=== PATIENT | male | born 1940 | race Caucasian/White ===

== ENCOUNTER → 2016-12-31 | Outpatient (CLI) | payer BC ==
[~2016-12-31] MED LIST: ATEN-173 PO; MULT-506 PO; NAPR1TAB9 PO; TELM80TA4 PO
[2016-12-31 09:38] LABS: BASO % 0.3 %; BASO ABS # 0.02 K/uL (0-0.2); COMPLETE YES; EOS % 1.9 %; IG% 0.5 %; LYMPH % 32.2 %; LYMPH ABS # 1.87 K/uL (1.2-3.4); MEAN CELL VOLUME 94.3 fL (80-100); MEAN CORPUSCULAR HEMOGLOBIN 32.6 pg (25-34); MEAN CORPUSCULAR HGB CONC 34.6 g/dl (32-36); MEAN PLATELET VOLUME 11.1 fL (7.4-10.4); MONO % 9.6 %; NEUT % 55.5 %; PLATELET COUNT 166 K/uL (130-400); RED BLOOD COUNT 4.88 M/uL (4.7-6.1); WHITE BLOOD COUNT 5.81 K/uL (4.8-10.8)
[2016-12-31 10:42] LABS: BLOOD UREA NITROGEN 19 mg/dl (7-18); BUN/CREATININE RATIO 17.4 (10-20); CALCIUM 8.9 mg/dl (8.5-10.1); CARBON DIOXIDE 30 mmol/L (21-32); CHLORIDE 103 mmol/L (98-107); GLUCOSE 104 mg/dl (70-99); POTASSIUM 3.6 mmol/L (3.5-5.1); SODIUM 141 mmol/L (136-145)
[2016-12-31 10:54] LABS: ALB/GLOB RATIO 1.1 (0.9-2); ALKALINE PHOSPHATASE 54 U/L (45-117); ALT/SGPT 42 U/L (12-78); AST/SGOT 31 U/L (15-37)
== END | disposition home or self-care (01) ==
LOC: C.LAB1850 08:02
PROVIDERS: ATTEND Internal Medicine Pulmonary Disease
DX: I10 Essential (primary) hypertension (principal); N40.0 Benign prostatic hyperplasia without lower urinary tract symptoms

== ENCOUNTER 2017-05-19 08:43 | Inpatient (IN) | payer BC, OTHER ==
[~2017-05-19] VITALS: Ht 188 cm; Wt 111.1 kg
[2017-05-19] VITALS (8 sets, daily range): BP systolic 129–197; BP diastolic 74–103; PULSE 63–74; TEMP 36.3–37; O2SAT 95–100; Ht 188 cm; Wt 111.1 kg
[~2017-05-19 08:43] MED LIST changes: -TELM80TA4 PO; +TELM80TA6 PO
--- NOTE | 2017-05-19 09:17 | EMERGENCY ROOM VISIT NOTE ---
History Report prepared by Mike: Digna Kim Under the Supervision of: Dr. Mello Lujan M.D. First contact with patient: 09:01 Chief Complaint: RECTAL BLEEDING Stated Complaint: RECTAL BLEEDING/HEAVY Nursing Triage Summary: Pt states at 0300 had a BM and toilet was full of bright red blood. States takes 2 naproxen daily. Mild rectal pain. Hx of GI bleed 7 yrs ago. Denies weakness, sob, fatigue. History of Present Illness The patient is a 77 year old male who presents to the Emergency Room with complaints of rectal bleeding occurring at 0330 this morning. The patient states that he defecated at this time, and that the toilet bowl was full of bright red blood. The patient reports having a normal appetite and normal urination. He states that he sometimes feels light-headed when getting up, but denies feeling short of breath. The patient states that he has had hemorrhoid problems over the last 15 years. In 2009, he reports doing a cross-country trip and that he later ended up in the hospital.He states that the last time he had a colonoscopy was in 2009. After this episode, he reports having blood in his stool and that he had to be given 3 pints of blood. The patient states that he takes 2 [id number] Naproxen daily, and states that he also takes blood pressure medication. The patient denies a history of a cholecystectomy. Source of History: patient Onset: 0330 this morning Position: other (rectum ) Quality: other (bleeding ) Associated Symptoms: + weakness (light-headedness ), No SOB, No urinary symptoms Review of Systems All systems have been listed, reviewed, and are negative other than those previously mentioned. Please see Additional Medical History Sheet. Past Medical & Surgical Medical Problems: (1) Gallbladder disease (2) Hypertension (3) Kidney stones (4) Pneumonia Surgical Problems: (1) Hx of cholecystectomy Family History Cancer Diabetes mellitus Gallbladder disease Hypertension Kidney disease Kidney stones Social History Smoking Status: Former Smoker Alcohol Use: none Drug Use: none Marital Status: Housing Status: lives with family Occupation Status: employed Current/Historical Medications Scheduled Atenolol (Tenormin), 25 MG PO DAILY Multivitamin (Multivitamin), 1 TAB PO DAILY Naproxen (Aleve), 220 MG PO DAILY Telmisartan/Hctz (Micardis Hct 80MG/12.5MG), 1 TAB PO DAILY Allergies Coded Allergies: No Known Allergies (Unverified , 05/19/17) Physical Exam Vital Signs Date Time Temp Pulse Resp B/P (MAP) Pulse Ox O2 Delivery O2 Flow Rate FiO2 05/19/17 11:53 67 18 188/100 98 Room Air 05/19/17 10:06 66 14 96 Room Air 05/19/17 10:01 170/94 05/19/17 09:43 180/94 05/19/17 09:43 66 18 180/94 97 Room Air 05/19/17 09:42 202/95 05/19/17 09:40 185/96 05/19/17 09:39 66 18 175/92 97 Room Air 69 185/96 73 202/95 05/19/17 09:36 66 9 95 05/19/17 09:31 66 18 175/92 97 Room Air 05/19/17 09:22 66 05/19/17 08:50 36.6 79 18 201/95 99 Room Air Physical Exam GENERAL: Patient awake, alert, oriented x 3. Patient follows commands. Patient does not appear toxic. Patient is adequately hydrated and well- nourished. SKIN: No erythema, pallor, cyanosis or rash HEENT: Normal head, pupils equal, reactive to light and accommodation. Ears normal. Oral cavity and posterior pharynx appear normal. Neck: Without adenopathy, no neck vein distention. LUNGS: Clear to auscultation. No wheezes, no rales, no rhonchi. HEART: No murmurs. No gallops. No rubs ABDOMEN: No masses, no rebound, no hepatomegaly or splenomegaly. Large oblique scar in the right upper quadrant. Bowel sounds are active. Vague abdominal tenderness (the patient says is chronic). EXTREMITIES: No signs of trauma. No pedal or pretibial edema. No calf or thigh tenderness. RECTAL: External hemorrhoids with obvious blood on them and on his anus but the source of the bleeding could not be defined. No masses palpated. Prostate not enlarged. NEUROLOGIC: Cranial nerves II-XII within normal limits. No gross motor sensory function deficits. Medical Decision & Procedures Laboratory Results 05/19/17 09:26 Red Blood Count 4.60, Mean Corpuscular Volume 93.3, Mean Corpuscular Hemoglobin 32.0, Mean Corpuscular Hemoglobin Concent 34.3, Mean Platelet Volume 10.7, Neutrophils (%) (Auto) 63.7, Lymphocytes (%) (Auto) 20.0, Monocytes (%) (Auto) 12.6, Eosinophils (%) (Auto) 2.7, Basophils (%) (Auto) 0.5, Neutrophils # (Auto ) 3.79, Lymphocytes # (Auto) 1.19, Monocytes # (Auto) 0.75, Eosinophils # (Auto ) 0.16, Basophils # (Auto) 0.03 05/19/17 09:26 Test 05/19/17 09:26 05/19/17 10:55 White Blood Count 5.95 K/uL (4.8-10.8) Red Blood Count 4.60 M/uL (4.7-6.1) Hemoglobin 14.7 g/dL (14.0-18.0) Hematocrit 42.9 % (42-52) Mean Corpuscular Volume 93.3 fL (80-100) Mean Corpuscular Hemoglobin 32.0 pg (25-34) Mean Corpuscular Hemoglobin Concent 34.3 g/dl (32-36) Platelet Count 173 K/uL (130-400) Mean Platelet Volume 10.7 fL (7.4-10.4) Neutrophils (%) (Auto) 63.7 % Lymphocytes (%) (Auto) 20.0 % Monocytes (%) (Auto) 12.6 % Eosinophils (%) (Auto) 2.7 % Basophils (%) (Auto) 0.5 % Neutrophils # (Auto) 3.79 K/uL (1.4-6.5) Lymphocytes # (Auto) 1.19 K/uL (1.2-3.4) Monocytes # (Auto) 0.75 K/uL (0.11-0.59) Eosinophils # (Auto) 0.16 K/uL (0-0.5) Basophils # (Auto) 0.03 K/uL (0-0.2) RDW Standard Deviation 45.4 fL (36.4-46.3) RDW Coefficient of Variation 13.3 % (11.5-14.5) Immature Granulocyte % (Auto) 0.5 % Immature Granulocyte # (Auto) 0.03 K/uL (0.00-0.02) Prothrombin Time 11.8 SECONDS (9.0-12.0) Prothromb Time International Ratio 1.1 (0.9-1.1) Activated Partial Thromboplast Time 28.5 SECONDS (21.0-31.0) Partial Thromboplastin Ratio 1.1 Anion Gap 2.0 mmol/L (3-11) Est Creatinine Clear Calc Drug Dose 73.6 ml/min Estimated GFR () 75.3 Estimated GFR (Non- 64.9 BUN/Creatinine Ratio 20.0 (10-20) Calcium Level 8.5 mg/dl (8.5-10.1) Total Bilirubin 1.0 mg/dl (0.2-1) Aspartate Amino Transf (AST/SGOT) 31 U/L (15-37) Alanine Aminotransferase (ALT/SGPT) 38 U/L (12-78) Alkaline Phosphatase 54 U/L (45-117) Total Protein 7.1 gm/dl (6.4-8.2) Albumin 3.6 gm/dl (3.4-5.0) Globulin 3.5 gm/dl (2.5-4.0) Albumin/Globulin Ratio 1.0 (0.9-2) Urine Color YELLOW Urine Appearance CLEAR (CLEAR) Urine pH 7.0 (4.5-7.5) Urine Specific [place] 1.013 (1.000-1.030) Urine Protein NEG (NEG) Urine Glucose (UA) NEG (NEG) Urine Ketones NEG (NEG) Urine Occult Blood NEG (NEG) Urine Nitrite NEG (NEG) Urine Bilirubin NEG (NEG) Urine Urobilinogen NEG (NEG) Urine Leukocyte Esterase NEG (NEG) Laboratory results as stated above per my review. Medications Administered Medications (Trade) Dose Ordered Sig/Shawn Route Start Time Stop Time Status Last Admin Dose Admin Potassium Chloride (Klor-Con M10) 40 meq NOW STAT PO 05/19/17 12:36 05/19/17 12:56 DC 05/19/17 13:18 40 MEQ ECG Indication: other (rectal bleeding ) Rate (beats per minute): 66 Rhythm: normal sinus Findings: nonspecific-ST abn, T-wave inversion (in V6, which are new compared to 2009), other (borderline left ventricular hypertrophy) ED Course 0902: Past medical records reviewed. The patient was evaluated in room A10. A complete history and physical examination was performed. 1042: I checked on the patient and he has no bleeding at the present time. We will see what happens after he moves his bowels. 1141: The patient states that he had bright red blood in the toilet when moving his bowels. 1143: Discussed the patient's case with Dr. Dixon. Dr. Dixon believes that the patient should be admitted. The patient will be evaluated for further management. 1148: Upon reevaluation, the patient is resting.I discussed today's findings with him. He verbalized agreement of the treatment plan. I spoke with Dr. Nelson of the [facility] Hospitalist Service to evaluate the patient for further management. Medical Decision Nurses notes reviewed. Medical history sheet reviewed. Differential diagnosis includes but is not limited to: rectal bleed, hemorrhoids, anal fissure, polyp, anemia, and orthostasis. 77-year-old male with rectal bleeding. The patient has obvious external hemorrhoids but cannot identify the source of the bleed. Bleeding had stopped but the patient had another bowel movement while here and he had significantly more blood. Multiple labs were obtained. Please see above. The patient is not anemic at this time. I discussed care briefly over the phone with Dr. Dixon. I also discussed care with the patient, his and the hospitalist. Medication Reconcilliation Current Medication List: was personally reviewed by me Blood Pressure Screening Patient's blood pressure: Elevated blood pressure will be monitored by hospitalist Consults Time Called: 1140 Consulting Physician: Dr. Land [employer] Returned Call: [phone] Discussed the patient's case with Dr. Dixon. Dr. Dixon believes that the patient should be admitted. The patient will be evaluated for further management. Additional Consults: Time Called: 1142 Consulted Physician: Dr. Nelson - [facility] Returned Call: [phone] Additional Comments: Discussed the patient's case with Dr. Nelson. The patient will be evaluated for further management. Impression Primary Impression: GI bleed Scribe Attestation The scribe's documentation has been prepared under my direction and personally reviewed by me in its entirety. I confirm that the note above accurately reflects all work, treatment, procedures, and medical decision making performed by me. Departure Information Dispostion Being Evaluated By Hospitalist Referrals Orlando Altman M.D. (PCP) Patient Instructions My [facility]
[2017-05-19 09:46] LABS: BASO % 0.5 %; BASO ABS # 0.03 K/uL (0-0.2); COMPLETE YES; EOS % 2.7 %; HEMATOCRIT 42.9 % (42-52); IG% 0.5 %; LYMPH ABS # 1.19 K/uL (1.2-3.4); MEAN CELL VOLUME 93.3 fL (80-100); MEAN CORPUSCULAR HGB CONC 34.3 g/dl (32-36); MEAN PLATELET VOLUME 10.7 fL (7.4-10.4); MONO % 12.6 %; NEUT % 63.7 %; PLATELET COUNT 173 K/uL (130-400); WHITE BLOOD COUNT 5.95 K/uL (4.8-10.8)
[2017-05-19 09:57] LABS: INR 1.1 (0.9-1.1); PARTIAL THROMBOPLASTIN RATIO 1.1; PROTHROMBIN TIME (PATIENT) 11.8 SECONDS (9.0-12.0)
[2017-05-19 10:02] LABS: CALCIUM 8.5 mg/dl (8.5-10.1); CREATININE 1.08 mg/dl (0.60-1.40); POTASSIUM 3.4 mmol/L (3.5-5.1)
[2017-05-19 11:05] LABS: URINE APPEARANCE CLEAR (CLEAR); URINE BILIRUBIN NEG (NEG); URINE COLOR YELLOW; URINE NITRITE NEG (NEG); URINE SPECIFIC GRAVITY 1.013 (1.000-1.030); UROBILINOGEN NEG (NEG); ZZUR CULT IF INDIC CLEAN CATCH NO
[2017-05-19 11:06] LABS: MANUAL MICROSCOPIC REQUIRED? NO; REVIEW REQ? NO
[2017-05-19] MEDS ORDERED: POTASSIUM CHLORIDE 10 MEQ TABCR PO STA (12:36)
[2017-05-19] MEDS ORDERED: ACETAMINOPHEN 325 MG TAB PO PRN (12:45)
[2017-05-19] MEDS ORDERED: MAGNESIUM HYDROXIDE SUSP 30 ML UDC PO PRN (12:45)
[2017-05-19] MEDS ORDERED: ONDANSETRON INJ 2 MG/ML 2 ML VIAL IV PRN (12:45)
--- NOTE | 2017-05-19 13:02 | History and Physical ---
History & Physical Date & Time of Service: May 19, 2017 at 12:43 Chief Complaint: Rectal Bleeding/Heavy Primary Care Physician: Orlando Altman M.D. History of Present Illness Source: patient, family 77 y/o M c/o BRBPR. Pt's states that they were woken up around 330am when their phone rang with a wrong number. Pt got up at that time to use the bathroom after noting rectal pressure. He passed a small amount of stool, but mostly bright red blood as liquid and noted some clots as well. He has a photo of this and it is noted to be bright red. He states he had no pain with this bowel movement, just the pressure. This happened again later in the morning, so they decided to come to the ED for evaluation. Dr. Lujan saw the pt in the ED and shortly after he did a rectal exam, the pt had a third episode of painless BRBPR. Pt denies abd pain, n/v. He states that he has had hemorrhoids for 20 years and that he does periodically get a small amount of blood on the toilet tissue only after a bowel movement. This happens maybe twice a month. He does note that this happened last night. He has had regular bowel movements the last few days. No constipation or diarrhea. He ate pizza yesterday, which he doesn't generally eat, but has eaten in the past without issue. Pt otherwise feels at his usual. Pt does take 2 naproxen QD for the last 25 years for OA related pain. He states he does generally take it with food, but cannot say if this has been the case the last few days. He may have taken it on an empty stomach. He did not drink alcohol the last few nights. No additional naproxen. Pt notes he has has "irritable bowels since I was 3 yrs old". He states he occasionally has abd cramping with diarrhea, but did not have this recently. Pt notes that in 2009, he and his completed a 3[place] trip for their anniversary. There was a lot of sitting in the car and eating a lot of atypical foods. Upon returning home, he had a similar episode of BRBPR. He was seen at [facility] by Dr. Ponce and had a c-scope/EGD with Dr. Stanton that were neg other than large hemorrhoids. He underwent a hemorrhoidectomy with Dr. Saez at that time. He was taking naproxen at that time as well. Pt is uncertain if he took his BP medication this AM, but states his BP has been 130s/80s generally. He does remember getting it out of the package, but cannot remember taking it [employer]. Pt denies fever, SOB, chest pain, c/d, LE pain. Pt does occasionally get LE swelling. 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 Denies hx of prostate cancer in father or grandfather, hx of prostate ca in an uncle Social History Smoking Status: Former Smoker (quit cigars 55 yrs ago, quit smokeless tobacco 22 yrs ago, no cigarette use hx) Alcohol Use: 2 beers one night a week Drug Use: none Marital Status: Occupational Status: employed Immunizations History of Influenza Vaccine: No History of Tetanus Vaccine?: Yes Tetanus Immunization Date: Apr 07, 2006 History of Pneumococcal: No History of Hepatitis B Vaccine: No Multi-Drug Resistant Organisms History of MDRO: No Allergies Coded Allergies: No Known Allergies (Unverified , 05/19/17) Home Medications Scheduled Atenolol (Tenormin), 25 MG PO DAILY Multivitamin (Multivitamin), 1 TAB PO DAILY Naproxen (Aleve), 220 MG PO DAILY Telmisartan/Hctz (Micardis Hct 80MG/12.5MG), 1 TAB PO DAILY Review of Systems Pertinent positives and negatives reviewed in HPI--all others negative Physical Exam Vital Signs Date Time Temp Pulse Resp B/P (MAP) Pulse Ox O2 Delivery O2 Flow Rate FiO2 05/19/17 11:53 67 18 188/100 98 Room Air 05/19/17 10:06 66 14 96 Room Air 05/19/17 10:01 170/94 05/19/17 09:43 180/94 05/19/17 09:43 66 18 180/94 97 Room Air 05/19/17 09:42 202/95 05/19/17 09:40 185/96 05/19/17 09:39 66 18 175/92 97 Room Air 69 185/96 73 202/95 05/19/17 09:36 66 9 95 05/19/17 09:31 66 18 175/92 97 Room Air 05/19/17 09:22 66 05/19/17 08:50 36.6 79 18 201/95 99 Room Air General Appearance: WD/WN, no apparent distress Head: normocephalic, atraumatic Eyes: normal inspection, EOMI ENT: hearing grossly normal Neck: supple Respiratory/Chest: normal breath sounds, no respiratory distress Cardiovascular: regular rate, rhythm, no edema Abdomen/GI: non tender, soft, + distended (minimally) Extremities/Musculoskelatal: no calf tenderness, no pedal edema Neurologic/Psych: alert, normal mood/affect, oriented x 3 Skin: normal color, warm/dry Diagnostics Laboratory Results Results Past 24 Hours Test 05/19/17 09:26 05/19/17 10:55 Range/Units White Blood Count 5.95 4.8-10.8 K/uL Red Blood Count 4.60 4.7-6.1 M/uL Hemoglobin 14.7 14.0-18.0 g/dL Hematocrit 42.9 42-52 % Mean Corpuscular Volume 93.3 80-100 fL Mean Corpuscular Hemoglobin 32.0 25-34 pg Mean Corpuscular Hemoglobin Concent 34.3 32-36 g/dl Platelet Count 173 130-400 K/uL Mean Platelet Volume 10.7 7.4-10.4 fL Neutrophils (%) (Auto) 63.7 % Lymphocytes (%) (Auto) 20.0 % Monocytes (%) (Auto) 12.6 % Eosinophils (%) (Auto) 2.7 % Basophils (%) (Auto) 0.5 % Neutrophils # (Auto) 3.79 1.4-6.5 K/uL Lymphocytes # (Auto) 1.19 1.2-3.4 K/uL Monocytes # (Auto) 0.75 0.11-0.59 K/uL Eosinophils # (Auto) 0.16 0-0.5 K/uL Basophils # (Auto) 0.03 0-0.2 K/uL RDW Standard Deviation 45.4 36.4-46.3 fL RDW Coefficient of Variation 13.3 11.5-14.5 % Immature Granulocyte % (Auto) 0.5 % Immature Granulocyte # (Auto) 0.03 0.00-0.02 K/uL Prothrombin Time 11.8 9.0-12.0 SECONDS Prothromb Time International Ratio 1.1 0.9-1.1 Activated Partial Thromboplast Time 28.5 21.0-31.0 SECONDS Partial Thromboplastin Ratio 1.1 Sodium Level 138 136-145 mmol/L Potassium Level 3.4 3.5-5.1 mmol/L Chloride Level 105 98-107 mmol/L Carbon Dioxide Level 31 21-32 mmol/L Anion Gap 2.0 3-11 mmol/L Blood Urea Nitrogen 22 7-18 mg/dl Creatinine 1.08 0.60-1.40 mg/dl Est Creatinine Clear Calc Drug Dose 73.6 ml/min Estimated GFR () 75.3 Estimated GFR (Non- 64.9 BUN/Creatinine Ratio 20.0 10-20 Random Glucose 123 70-99 mg/dl Calcium Level 8.5 8.5-10.1 mg/dl Total Bilirubin 1.0 0.2-1 mg/dl Aspartate Amino Transf (AST/SGOT) 31 15-37 U/L Alanine Aminotransferase (ALT/SGPT) 38 12-78 U/L Alkaline Phosphatase 54 45-117 U/L Total Protein 7.1 6.4-8.2 gm/dl Albumin 3.6 3.4-5.0 gm/dl Globulin 3.5 2.5-4.0 gm/dl Albumin/Globulin Ratio 1.0 0.9-2 Urine Color YELLOW Urine Appearance CLEAR CLEAR Urine pH 7.0 4.5-7.5 Urine Specific [place] 1.013 1.000-1.030 Urine Protein NEG NEG Urine Glucose (UA) NEG NEG Urine Ketones NEG NEG Urine Occult Blood NEG NEG Urine Nitrite NEG NEG Urine Bilirubin NEG NEG Urine Urobilinogen NEG NEG Urine Leukocyte Esterase NEG NEG Impression Assessment and Plan 77 y/o M who was admitted for observation on 05/19 for GIB GIB: BRBPR x3 suggesting hemorrhoid bleeding, however external hemorrhoids neg for signs of bleeding per ED physician exam with heme + stool Hb stable, monitor on tele and repeat H/H at 4p Will hold on imaging for now given no abd pain, n/v/d Protonix BID Clears GI c/s pending, pt has seen Dr. Ponce in the past with c-scope and EGD in 2009 Advised pt that he may wish to attempt transition to [place] 3 fish oil to eliminate or even decrease his naproxen use as this functions on the same ZIMMERMAN pathway as NSAIDs without the risk of GIB. HypoK: replace PO and monitor HTN: labile in the ED in the setting of likely missed meds Requested additional dosing for today and monitor Other: Full code Ambulation and avoid rx DVT proph given above Clears for now Level of Care Telemetry Resuscitation Status FULL RESUSCITATION VTE Prophylaxis VTE Risk Assessment Done? Y/N: Yes Risk Level: Low
[2017-05-19] MEDS ORDERED: IV FLUIDS COMPLETED PRN (15:30)
[2017-05-19 16:12] LABS: HEMATOCRIT 42.6 % (42-52)
[2017-05-19] MEDS ORDERED: NURSING VERBAL MED ORDER ONE ×2 (17:45→23:30)
[2017-05-19] MEDS: LAVAGE SOLUTION 4000ML PO SCH ×2 (18:32→20:30)
[2017-05-19] MEDS ORDERED: HydrALAZINE HCL 20 MG/ML VIAL IV. PRN (20:00)
[2017-05-19] MEDS: PANTOprazole INJ 40 MG in SYRINGE 0 ML IV SCH (20:33)
[2017-05-19 22:10] LABS: CKMB/CK RATIO 1.4 (0-3.0)
[2017-05-19 22:11] LABS: BUN/CREATININE RATIO 13.8 (10-20); CALCIUM 8.6 mg/dl (8.5-10.1); CREATININE 1.11 mg/dl (0.60-1.40); POTASSIUM 3.3 mmol/L (3.5-5.1)
[2017-05-19] MEDS ORDERED: POTASSIUM CHLR 20 MEQ / WTR 40 MEQ in PREMIXED WATER 100 ML IV STA (22:39)
[2017-05-19 22:59] LABS: MAGNESIUM 2.2 mg/dl (1.8-2.4)
[2017-05-19] MEDS: D5NSS + 20MEQ KCL 1,000 ML IV SCH (23:15)
[2017-05-19] MEDS: POTASSIUM CHLR 10MEQ / WTR IV SCH (23:58)
[2017-05-20] VITALS (10 sets, daily range): BP systolic 146–178; BP diastolic 71–91; PULSE 62–78; TEMP 36.6–36.9; O2SAT 96–98
[2017-05-20] MEDS: POTASSIUM CHLR 10MEQ / WTR IV SCH ×3 (01:27→03:44)
[2017-05-20 03:32] LABS: HEMATOCRIT 39.2 % (42-52); MEAN CELL VOLUME 92.5 fL (80-100); MEAN CORPUSCULAR HEMOGLOBIN 32.1 pg (25-34); MEAN CORPUSCULAR HGB CONC 34.7 g/dl (32-36); MEAN PLATELET VOLUME 10.8 fL (7.4-10.4); PLATELET COUNT 200 K/uL (130-400); RED BLOOD COUNT 4.24 M/uL (4.7-6.1); WHITE BLOOD COUNT 7.11 K/uL (4.8-10.8)
--- NOTE | 2017-05-20 03:35 | Progress Note ---
Progress Note Date of Service May 20, 2017. Progress Note A code abigail called at approximately 21:00 on 05/19/2017. When I arrived at the bedside, it was noted to me that the patient had been on the toilet having a bowel movement and reporting becoming presyncopal. Nursing staff noted that the patient's heart rate was in the 30s. The patient did not lose consciousness, but given change in mental status, a code abigail was called. When I arrived at the bedside the patient was lying currently bed. He denies any chest pain, shortness of breath, palpitations or orthopnea. He denied any abdominal pain. The patient is here for GI bleeding. The patient is planned for a colonoscopy on 05/20/2017, is currently taking the GoLYTELY prep. EXAM: - Patient was alert and oriented to person place and time - Vital signs repeated at the bedside: The patient's blood pressure was in the 160s systolic. Heart rate was in the 60s. The patient is not hypoxic - S1 and S2 are normal without any sounds or murmurs -Breath sounds were clear bilaterally - Contents of the toilet were examined which showed blood in the toilet water LABS - Repeat hemoglobin was 14.8, which is stable compared to hemoglobin at admission - Potassium 3.3. Magnesium was 2.2. All other electrolytes were within normal limits. - Troponin was negative - EKG was done at the bedside: There were new T-wave inversions in leads V4 and V5 which were not present previously ASSESSMENT/PLAN The patient likely had a previous vasovagal episode. Bradycardia sustained- release preteens have been transient and has now resolved. The patient was stable by the time I arrived to the bedside. However was noted that there were no EKG changes. Plan for this as follows - Continue GoLYTELY prep. However I recommended that the patient be kept in bed and use a bedpan for bowel movements - Hemoglobin level is stable. There is no indication to transfuse at this time - Potassium 3.3. What we'll try to optimize his potassium to goal of 4 or greater. At this time I ordered 40 mEq of potassium chloride IV - Given the reported bradycardia, as well as EKG changes, I repeated an initial set of cardiac enzymes which were negative. We will repeat these in another 6 hours 2
[2017-05-20 03:58] LABS: BUN/CREATININE RATIO 14.9 (10-20); CREATININE 0.95 mg/dl (0.60-1.40); POTASSIUM 3.7 mmol/L (3.5-5.1)
[2017-05-20 04:05] LABS: CKMB/CK RATIO 1.4 (0-3.0)
[2017-05-20] MEDS: PANTOprazole INJ 40 MG in SYRINGE 0 ML IV SCH (08:07)
--- NOTE | 2017-05-20 08:21 | Hospitalist Progress Note ---
Hospitalist Progress Note Date of Service May 20, 2017. Subjective Pt evaluation today including: conversation w/ patient, conversation w/ family , physical exam, chart review, lab review, review of studies, conversation w/ pre sales technical consultant Pain: None PO Intake: NPO for colonoscopy/EGD Voiding: no voiding problems The patient was seen and examined this morning. Pt reports doing better this morning. He was only able to finish 2/3 of the bowel prep overnight since having the presyncopal episode. He had loose bowels which were erickson colored this morning, and reports the rectal pressure is gone, and that he has not seen any BRBPR or dark red clots since taking the prep. He denies abdominal pain, nausea, cramping, bloating. He denies any further feelings of lightheadedness or dizziness, and has been able to ambulate to the bathroom with assistance without difficulty. ROS: denies fever, chills, sweats, chest pain, chest tightness, flutter, weakness. Other ROS reviewed as above or otherwise negative. Objective Vital Signs Date Time Temp Pulse Resp B/P (MAP) Pulse Ox O2 Delivery O2 Flow Rate FiO2 05/20/17 04:04 36.8 72 19 146/71 (96) 98 Room Air 05/20/17 03:40 Room Air 05/19/17 23:54 162/79 (106) 05/19/17 23:37 36.3 74 15 187/91 (123) 99 Room Air 05/19/17 23:22 Room Air 05/19/17 21:25 63 129/74 (92) 100 Room Air 05/19/17 21:03 174/89 (117) 99 Room Air 05/19/17 20:20 Room Air 05/19/17 19:36 36.3 66 20 189/103 (131) 98 Room Air 05/19/17 16:05 95 05/19/17 14:01 37.0 67 16 197/95 (129) 99 Room Air 05/19/17 13:20 68 18 167/81 97 Room Air 05/19/17 12:51 69 05/19/17 12:49 36.6 67 18 188/100 Room Air 05/19/17 11:53 67 18 188/100 98 Room Air 05/19/17 10:06 66 14 96 Room Air 05/19/17 10:01 170/94 05/19/17 09:43 180/94 05/19/17 09:43 66 18 180/94 97 Room Air 05/19/17 09:42 202/95 05/19/17 09:40 185/96 05/19/17 09:39 66 18 175/92 97 Room Air 69 185/96 73 202/95 05/19/17 09:36 66 9 95 05/19/17 09:31 66 18 175/92 97 Room Air 05/19/17 09:22 66 05/19/17 08:50 36.6 79 18 201/95 99 Room Air Physical Exam General Appearance: WD/WN, no apparent distress Eyes: normal inspection, PERRL, EOMI ENT: hearing grossly normal, pharynx normal Neck: supple, thyroid normal Respiratory/Chest: lungs clear, no respiratory distress, no accessory muscle use Cardiovascular: regular rate, rhythm, no murmur Abdomen: normal bowel sounds, non tender, soft Extremities: non-tender, no pedal edema, no calf tenderness Neurologic/Psychiatric: alert, normal mood/affect, oriented x 3 Skin: normal color, warm/dry Laboratory Results Last 24 Hours Test 05/19/17 09:26 05/19/17 10:55 05/19/17 16:01 05/19/17 21:03 White Blood Count 5.95 K/uL Red Blood Count 4.60 M/uL Hemoglobin 14.7 g/dL 14.8 g/dL Hematocrit 42.9 % 42.6 % Mean Corpuscular Volume 93.3 fL Mean Corpuscular Hemoglobin 32.0 pg Mean Corpuscular Hemoglobin Concent 34.3 g/dl Platelet Count 173 K/uL Mean Platelet Volume 10.7 fL Neutrophils (%) (Auto) 63.7 % Lymphocytes (%) (Auto) 20.0 % Monocytes (%) (Auto) 12.6 % Eosinophils (%) (Auto) 2.7 % Basophils (%) (Auto) 0.5 % Neutrophils # (Auto) 3.79 K/uL Lymphocytes # (Auto) 1.19 K/uL Monocytes # (Auto) 0.75 K/uL Eosinophils # (Auto) 0.16 K/uL Basophils # (Auto) 0.03 K/uL RDW Standard Deviation 45.4 fL RDW Coefficient of Variation 13.3 % Immature Granulocyte % (Auto) 0.5 % Immature Granulocyte # (Auto) 0.03 K/uL Prothrombin Time 11.8 SECONDS Prothromb Time International Ratio 1.1 Activated Partial Thromboplast Time 28.5 SECONDS Partial Thromboplastin Ratio 1.1 Sodium Level 138 mmol/L Potassium Level 3.4 mmol/L Chloride Level 105 mmol/L Carbon Dioxide Level 31 mmol/L Anion Gap 2.0 mmol/L Blood Urea Nitrogen 22 mg/dl Creatinine 1.08 mg/dl Est Creatinine Clear Calc Drug Dose 73.6 ml/min Estimated GFR () 75.3 Estimated GFR (Non- 64.9 BUN/Creatinine Ratio 20.0 Random Glucose 123 mg/dl Calcium Level 8.5 mg/dl Total Bilirubin 1.0 mg/dl Aspartate Amino Transf (AST/SGOT) 31 U/L Alanine Aminotransferase (ALT/SGPT) 38 U/L Alkaline Phosphatase 54 U/L Total Protein 7.1 gm/dl Albumin 3.6 gm/dl Globulin 3.5 gm/dl Albumin/Globulin Ratio 1.0 Urine Color YELLOW Urine Appearance CLEAR Urine pH 7.0 Urine Specific [place] 1.013 Urine Protein NEG Urine Glucose (UA) NEG Urine Ketones NEG Urine Occult Blood NEG Urine Nitrite NEG Urine Bilirubin NEG Urine Urobilinogen NEG Urine Leukocyte Esterase NEG Bedside Glucose 121 mg/dl Test 05/19/17 21:13 05/20/17 02:57 Hemoglobin 14.8 g/dL 13.6 g/dL Hematocrit 43.0 % 39.2 % Sodium Level 140 mmol/L 140 mmol/L Potassium Level 3.3 mmol/L 3.7 mmol/L Chloride Level 104 mmol/L 107 mmol/L Carbon Dioxide Level 28 mmol/L 26 mmol/L Anion Gap 8.0 mmol/L 7.0 mmol/L Blood Urea Nitrogen 15 mg/dl 14 mg/dl Creatinine 1.11 mg/dl 0.95 mg/dl Est Creatinine Clear Calc Drug Dose 71.6 ml/min 83.6 ml/min Estimated GFR () 72.8 87.9 Estimated GFR (Non- 62.8 75.8 BUN/Creatinine Ratio 13.8 14.9 Random Glucose 131 mg/dl 137 mg/dl Calcium Level 8.6 mg/dl 8.0 mg/dl Magnesium Level 2.2 mg/dl Total Creatine Kinase 138 U/L 116 U/L Creatine Kinase MB 1.9 ng/ml 1.6 ng/ml Creatine Kinase MB Ratio 1.4 1.4 Troponin I < 0.015 ng/ml < 0.015 ng/ml White Blood Count 7.11 K/uL Red Blood Count 4.24 M/uL Mean Corpuscular Volume 92.5 fL Mean Corpuscular Hemoglobin 32.1 pg Mean Corpuscular Hemoglobin Concent 34.7 g/dl RDW Standard Deviation 45.1 fL RDW Coefficient of Variation 13.4 % Platelet Count 200 K/uL Mean Platelet Volume 10.8 fL Assessment and Plan 77 y/o M who was admitted for observation on 05/19 for GIB Overnight events include episode where code abigail was called for hypotension and bradycardia after pt was walking to the bathroom and sat down on the toilet. HR in the 30s-40s and BP at that time not obtained. Per nursing notes pt slumped over and went in and out of consciousness approximately 3 times and was assisted into wheelchair and then into bed. BP stable once in bed - 174/89, HR immediately returned into 60s. - BP stable since then. Contents in toilet included bright red blood x 1 - since then denies blood seen with bowel movements/bowel prep EKG was obtained overnight showing T wave inversions in V4 and V5 - negative for cardiac sx this morning Pt was continued on Go-lytely prep - finished 2/3 of the prep GIB: - BRBPR x3 suggesting hemorrhoid bleeding, however external hemorrhoids neg for signs of bleeding per ED physician exam with heme + stool - Hgb remains stable, follow - Planned colonoscopy and endoscopy today with Dr. Ponce - has followed with him before - NPO for now - Cont Protonix BID for now Hypokalemia - replace PO and monitor HTN - labile in the ED in the setting of likely missed meds Requested additional dosing for today and monitor - possible that combination of GIB and extra dose of medication precipitated presyncopal episode as above. DVT ppx: no chemical anticoagulation in the setting of GIB CODE STATUS: Full code Disposition: From home, discharge possible in 1-2 days pending results of scopes.
[2017-05-20] MEDS ORDERED: TELMISARTAN 40 MG TAB PO SCH (09:00)
[2017-05-20] MEDS ORDERED: HYDROCHLOROTHIAZIDE 25 MG TAB PO SCH (09:00)
[2017-05-20] MEDS ORDERED: MULTIVITAMIN TAB PO SCH (09:00)
[2017-05-20 10:36] LABS: CKMB/CK RATIO 1.1 (0-3.0)
--- NOTE | 2017-05-20 10:55 | Gastrointestinal Consultation ---
Gastrointestinal Consultation Date of Consultation: May 20, 2017 Attending Physician: Dr. Nelson Consulting Physician: Dr. Ponce/SCHUYLER Martin Reason for Consultation: GI Bleed History of Present Illness Patient is a 77 year old male with a history of osteoarthritis, hypertension, diverticulitis and hemorrhoids presenting to the ER yesterday after developing a sudden onset of rectal pressure and bright red rectal bleeding with passage of blood clots in the early hours of 05/19/17. He reports several prior occasions of rectal bleeding occurring 1-2 times per month. Patient has been using chronic and daily NSAID therapy for management of his chronic joint pain and states he is using 2 naproxen per day. No tobacco and only 2 alcoholic beverages per week. He denies any abdominal pain, nausea or vomiting, diarrhea, constipation or weight loss prior to the onset of symptoms. Patient verbalizes that he has had recurrence of his external hemorrhoids and is concerned that the bleeding may be related to either internal or external hemorrhoids. Patient was noted to be heme positive in the ER. H&H on arrival was 14.7 and 42.9 but has dropped slightly to 13.6 and 39.2 with IV resuscitation. He denies any further rectal bleeding. Currently, he states he has passed many bowel movements after taking his bowel prep last evening as ordered by Dr. Ponce. He did complete 2/3 of the prep solution and states he is passing mostly liquid with small pieces of fecal material. No chest pain, palpitations or shortness of breath at present but he apparently did become pre-syncopal and hypotensive while having a bowel movement last evening. No hypotension or bradycardia this am. He was previously seen and evaluated during a hospitalization by Dr. Ponce and Dr. Stanton in 2009 for hematochezia. He did undergo both an upper and lower endoscopy at that time with findings only of a non-bleeding AVM, diverticulosis and hemorrhoids. He did subsequently undergo an elective hemorrhoidectomy after that hospitalization. Past Medical/Surgical History Medical Problems: (1) GI bleed Status: Acute Past Medical History: 1. OA 2. Hypertension 3. Diverticulosis with diverticulitis 4. Internal and external hemorrhoids 5. Gall bladder disease 6. Nephrolithiasis 7. Pneumonia 8. GI bleed Past Surgical History: 1. EGD 2. Complete colonoscopy 3. Hemorrhoidectomy 4. Cholecystectomy Family History Cancer Diabetes mellitus Gallbladder disease Hypertension Kidney disease Kidney stones Negative for GI malignancy or IBD Social History Smoking Status: Former Smoker Alcohol Use: occasionally Drug Use: none Marital Status: Housing Status: lives with family Allergies Coded Allergies: No Known Allergies (Unverified , 05/19/17) Current Medications Home Meds and Scripts Medications Dose Route/Sig Max Daily Dose Days Date Category Tenormin (Atenolol) 25 Mg Tab 25 Mg PO DAILY 04/15/15 Reported Micardis Hct 80MG/12.5MG (Telmisartan/Hydrochlorothiazide) Tab 1 Tab PO DAILY 04/15/15 Reported Multivitamin (Multivitamins) Tab 1 Tab PO DAILY 04/15/15 Reported Aleve (Naproxen) 220 Mg Tab 220 Mg PO DAILY 02/05/07 Reported Review of Systems See HPI for pertinent positives & negatives. A total of 10 systems reviewed and were otherwise negative. Physical Exam Date Time Temp Pulse Resp B/P (MAP) Pulse Ox O2 Delivery O2 Flow Rate FiO2 05/20/17 08:52 152/83 (106) 05/20/17 08:10 36.8 78 18 178/91 (120) 97 Room Air 05/20/17 08:00 98 Room Air 05/20/17 04:04 36.8 72 19 146/71 (96) 98 Room Air 05/20/17 03:40 Room Air 05/19/17 23:54 162/79 (106) 05/19/17 23:37 36.3 74 15 187/91 (123) 99 Room Air 05/19/17 23:22 Room Air 05/19/17 21:25 63 129/74 (92) 100 Room Air 05/19/17 21:03 174/89 (117) 99 Room Air 05/19/17 20:20 Room Air 05/19/17 19:36 36.3 66 20 189/103 (131) 98 Room Air 05/19/17 16:05 95 05/19/17 14:01 37.0 67 16 197/95 (129) 99 Room Air 05/19/17 13:20 68 18 167/81 97 Room Air 05/19/17 12:51 69 05/19/17 12:49 36.6 67 18 188/100 Room Air 05/19/17 11:53 67 18 188/100 98 Room Air General Appearance: no apparent distress Eyes: normal inspection ENT: hearing grossly normal Neck: supple Respiratory/Chest: lungs clear, normal breath sounds, no respiratory distress Cardiovascular: regular rate, rhythm Abdomen: normal bowel sounds, non tender, soft Extremities: no pedal edema Neurologic/Psych: alert, normal mood/affect, oriented x 3 Skin: warm/dry Laboratory Results Last 24 Hours Test 05/19/17 10:55 05/19/17 16:01 05/19/17 21:03 05/19/17 21:13 Urine Color YELLOW Urine Appearance CLEAR Urine pH 7.0 Urine Specific [place] 1.013 Urine Protein NEG Urine Glucose (UA) NEG Urine Ketones NEG Urine Occult Blood NEG Urine Nitrite NEG Urine Bilirubin NEG Urine Urobilinogen NEG Urine Leukocyte Esterase NEG Hemoglobin 14.8 g/dL 14.8 g/dL Hematocrit 42.6 % 43.0 % Bedside Glucose 121 mg/dl Sodium Level 140 mmol/L Potassium Level 3.3 mmol/L Chloride Level 104 mmol/L Carbon Dioxide Level 28 mmol/L Anion Gap 8.0 mmol/L Blood Urea Nitrogen 15 mg/dl Creatinine 1.11 mg/dl Est Creatinine Clear Calc Drug Dose 71.6 ml/min Estimated GFR () 72.8 Estimated GFR (Non- 62.8 BUN/Creatinine Ratio 13.8 Random Glucose 131 mg/dl Calcium Level 8.6 mg/dl Magnesium Level 2.2 mg/dl Total Creatine Kinase 138 U/L Creatine Kinase MB 1.9 ng/ml Creatine Kinase MB Ratio 1.4 Troponin I < 0.015 ng/ml Test 05/20/17 02:57 05/20/17 09:57 White Blood Count 7.11 K/uL Red Blood Count 4.24 M/uL Hemoglobin 13.6 g/dL Hematocrit 39.2 % Mean Corpuscular Volume 92.5 fL Mean Corpuscular Hemoglobin 32.1 pg Mean Corpuscular Hemoglobin Concent 34.7 g/dl RDW Standard Deviation 45.1 fL RDW Coefficient of Variation 13.4 % Platelet Count 200 K/uL Mean Platelet Volume 10.8 fL Sodium Level 140 mmol/L Potassium Level 3.7 mmol/L Chloride Level 107 mmol/L Carbon Dioxide Level 26 mmol/L Anion Gap 7.0 mmol/L Blood Urea Nitrogen 14 mg/dl Creatinine 0.95 mg/dl Est Creatinine Clear Calc Drug Dose 83.6 ml/min Estimated GFR () 87.9 Estimated GFR (Non- 75.8 BUN/Creatinine Ratio 14.9 Random Glucose 137 mg/dl Calcium Level 8.0 mg/dl Total Creatine Kinase 116 U/L 134 U/L Creatine Kinase MB 1.6 ng/ml 1.5 ng/ml Creatine Kinase MB Ratio 1.4 1.1 Troponin I < 0.015 ng/ml < 0.015 ng/ml Impression Patient is a 77 year old male with a history of hemorrhoids and non-bleeding gastric AVM presenting with sudden onset of bright red blood per rectum. Diff dx: hemorrhoids, fissure, diverticular bleed vs AVM vs malignancy (less likely) vs other. Plan 1. Keep NPO. 2. EGD and colonoscopy with Dr. Ponce today for further evaluation. 3. Continue Protonix 40 mg IV BID. 4. Additional recommendations pending results of testing. Thank you for allowing us to participate in the care of this pleasant patient. If you have any questions or concerns, please do not hesitate to contact us. Agree with SCHUYLER Martin as above Abd: Soft, NT, ND, +BS EGD and Colonoscopy today for further evaluation Continue current therapy
[2017-05-20] MEDS: D5NSS + 20MEQ KCL 1,000 ML IV SCH (12:49)
[2017-05-20] MEDS ORDERED: PROPOFOL IV EMULSION 10 MG/ML 20 ML VIAL IV ONE (15:10)
[2017-05-20] MEDS ORDERED: LIDOCAINE HCL 2% 2 ML VIAL (20MG/ML) ONE (15:10)
[2017-05-20] MEDS ORDERED: FENTANYL CITRATE INJ 50 MCG/1 ML 2 ML VIAL ONE (16:12)
--- NOTE | 2017-05-20 16:50 | GI REPORT ---
Procedure Date: 05/20/2017 4:12 PM Procedure: Colonoscopy Indications: Hematochezia Medicines: Monitored Anesthesia Care Complications: No immediate complications. Estimated Blood Loss: Estimated blood loss: none. Procedure: Pre-Anesthesia Assessment: - Prior to the procedure, a History and Physical was performed, and patient medications and allergies were reviewed. The patient's tolerance of previous anesthesia was also reviewed. The risks and benefits of the procedure and the sedation options and risks were discussed with the patient. All questions were answered, and informed consent was obtained. Prior Anticoagulants: The patient has taken no previous anticoagulant or antiplatelet agents. ASA Grade Assessment: III - A patient with severe systemic disease. After reviewing the risks and benefits, the patient was deemed in satisfactory condition to undergo the procedure. After I obtained informed consent, the scope was passed under direct vision. Throughout the procedure, the patient's blood pressure, pulse, and oxygen saturations were monitored continuously. The scope was introduced through the anus and advanced to the terminal ileum. The colonoscopy was performed without difficulty. The patient tolerated the procedure well. The quality of the bowel preparation was good. The terminal ileum, ileocecal valve, appendiceal orifice, and rectum were photographed. Findings: The perianal and digital rectal examinations were normal. Three sessile polyps were found in the cecum. The polyps were 5 to 8 mm in size. These polyps were removed with a hot snare. Resection and retrieval were complete. Multiple small-mouthed diverticula were found in the sigmoid colon. Non-bleeding internal hemorrhoids were found during retroflexion. The hemorrhoids were small. Impression: - Three 5 to 8 mm polyps in the cecum, removed with a hot snare. Resected and retrieved. - Diverticulosis in the sigmoid colon. - Non-bleeding internal hemorrhoids. Recommendation: - Resume previous diet. - Continue present medications. - Repeat colonoscopy for surveillance based on pathology results. - Return to primary care physician as previously scheduled. Pravin Ponce, DO 05/20/2017 4:50:06 PM This report has been signed electronically. Note Initiated On: 05/20/2017 4:12 PM I attest to the content of the Intraoperative Record and orders documented therein, exceptions below
--- NOTE | 2017-05-20 16:52 | GI REPORT ---
Procedure Date: 05/20/2017 4:13 PM Procedure: Upper GI endoscopy Indications: Hematochezia Medicines: Monitored Anesthesia Care Complications: No immediate complications. Estimated Blood Loss: Estimated blood loss: none. Procedure: Pre-Anesthesia Assessment: - Prior to the procedure, a History and Physical was performed, and patient medications and allergies were reviewed. The patient's tolerance of previous anesthesia was also reviewed. The risks and benefits of the procedure and the sedation options and risks were discussed with the patient. All questions were answered, and informed consent was obtained. Prior Anticoagulants: The patient has taken no previous anticoagulant or antiplatelet agents. ASA Grade Assessment: III - A patient with severe systemic disease. After reviewing the risks and benefits, the patient was deemed in satisfactory condition to undergo the procedure. After obtaining informed consent, the endoscope was passed under direct vision. Throughout the procedure, the patient's blood pressure, pulse, and oxygen saturations were monitored continuously. The Scope was introduced through the mouth, and advanced to the second part of duodenum. The upper GI endoscopy was accomplished without difficulty. The patient tolerated the procedure well. Findings: The esophagus was normal. Localized mild inflammation characterized by erythema was found in the gastric antrum. Biopsies were taken with a cold forceps for histology. The examined duodenum was normal. Impression: - Normal esophagus. - Gastritis. Biopsied. - Normal examined duodenum. Recommendation: - Resume previous diet. - Continue present medications. - Await pathology results. - Return patient to hospital [facility] for ongoing care. Pravin Ponce, DO 05/20/2017 4:51:39 PM This report has been signed electronically. Note Initiated On: 05/20/2017 4:13 PM I attest to the content of the Intraoperative Record and orders documented therein, exceptions below
--- NOTE | 2017-05-20 17:37 | Anesthesiology Progress Note ---
Anesthesia Post Op Note Date & Time May 20, 2017 at 17:37 Vital Signs Pain Intensity: 0.0 Vital Signs Past 12 Hours Date Time Temp Pulse Resp B/P (MAP) Pulse Ox O2 Delivery O2 Flow Rate FiO2 05/20/17 17:15 67 16 156/76 (102) 96 Room Air 05/20/17 17:00 64 16 133/68 (89) 96 Room Air 05/20/17 16:45 62 16 128/62 (84) 95 Room Air 05/20/17 16:00 98 Room Air 05/20/17 15:58 37.3 71 20 183/85 (117) 98 Room Air 05/20/17 15:08 36.6 71 20 156/79 (104) 97 Room Air 05/20/17 12:00 98 Room Air 05/20/17 10:57 36.9 72 20 160/81 (107) 96 Room Air 05/20/17 08:52 152/83 (106) 05/20/17 08:10 36.8 78 18 178/91 (120) 97 Room Air 05/20/17 08:00 98 Room Air Notes Mental Status: alert / awake / arousable, participated in evaluation Pt Amnestic to Procedure: Yes Nausea / Vomiting: adequately controlled Pain: adequately controlled Airway Patency, RR, SpO2: stable & adequate BP & HR: stable & adequate Hydration State: stable & adequate Anesthetic Complications: no major complications apparent
[2017-05-20] MEDS ORDERED: PANT40TA PO (19:06)
--- NOTE | 2017-05-20 19:10 | Discharge Instructions ---
Discharge Instructions Date of Service May 20, 2017. Admission Reason for Admission: Gi Bleed Discharge Discharge Diagnosis / Problem: Rectal bleed, colonic polyps, gastritis Discharge Goals Goal(s): Improve function, Specific goals (follow up colonoscopy based on pathology results) Activity Recommendations Activity Limitations: resume your previous activity Lifting Limitations: none Exercise/Sports Limitations: as tolerated May Resume Sexual Activity: when tolerated Shower/Bathe: no limitations Driving or Machine Use: no limitations . Instructions / Follow-Up Instructions / Follow-Up Medications: - PROTONIX: 40mg twice a day for two weeks, after that you can take once a day GI bleed: hemoglobin stable, blood loss was not significant, no active bleeding on scopes gastritis: take Protonix to treat this, biopsies taken colonic polyps: removed by Dr. Kris Ponce's office will contact you with biopsy results, may take several days so you may not get results until next week FOLLOW UP - Dr. Altman in one week for hospital follow up - Dr. Ponce for repeat colonoscopy based on pathology results, they will provide instructions Current Hospital Diet Patient's current hospital diet: Clear Liquid Diet Discharge Diet Recommended Diet: Regular Diet Procedures Procedures Performed: EGD/Colonoscopy Pending Studies Studies pending at discharge: yes List of pending studies: pathology results Medical Emergencies . Who to Call and When: Medical Emergencies: If at any time you feel your situation is an emergency, please call 911 immediately. . Non-Emergent Contact Non-Emergency issues call your: Primary Care Provider Call Non-Emergent contact if: you have any medication questions . . "Provider Documentation" section prepared by Yonathan Juares. . VTE Core Measure Inpt VTE Proph given/why not?: Treatment not indicated [place] Drug Monitoring Program Search Results: no issues identified
--- NOTE | 2017-05-21 14:02 | Discharge Summary ---
Discharge Summary Date of Service May 21, 2017. Discharge Summary Admission Date: May 20, 2017 at 15:10 Discharge Date: May 20, 2017 Discharge Disposition: Home Principal Diagnosis: Gastrointesinal Bleed Problems/Secondary Diagnoses: GIB due to external hemorrhoids, gastritis and colonic polyps found on colonoscopy. Hypokalemia HTN Immunizations: Have You Had Influenza Vaccine: No History of Tetanus Vaccine?: Yes Tetanus Immunization Date: Apr 07, 2006 History of Pneumococcal: No History of Hepatitis B Vaccine: No Procedures: Colonoscopy 05/20/17: Three 5 to 8 mm polyps in the cecum removed with hot snare. Resected and retrieved. Diverticulosis in the signoid colon. Nonbleeding internal hemorrhoids Recommendation: resume previous diet Continue present medications Repeat colonoscopy for surveillance based on pathology results Return to primary care physician as previously scheduled EGD 05/20/17 Normal esophagus Gastritis, biopsied. Normal examined duodenum Recommendation - Resume previous diet Await pathology results [facility] patient to [facility]. 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 Pt reports doing better this morning. He was only able to finish 2/3 of the bowel prep overnight since having the presyncopal episode. He had loose bowels which were erickson colored this morning, and reports the rectal pressure is gone, and that he has not seen any BRBPR or dark red clots since taking the prep. He denies abdominal pain, nausea, cramping, bloating. He denies any further feelings of lightheadedness or dizziness, and has been able to ambulate to the bathroom with assistance without difficulty. ROS: denies fever, chills, sweats, chest pain, chest tightness, flutter, weakness. Other ROS reviewed as above or otherwise negative. Physical Exam: General Appearance: WD/WN, no apparent distress Eyes: normal inspection, PERRL, EOMI ENT: hearing grossly normal, pharynx normal Neck: supple, thyroid normal Respiratory/Chest: lungs clear, no respiratory distress, no accessory muscle use Cardiovascular: regular rate, rhythm, no murmur Abdomen: normal bowel sounds, non tender, soft Extremities: non-tender, no pedal edema, no calf tenderness Neurologic/Psychiatric: alert, normal mood/affect, oriented x 3 Skin: normal color, warm/dry Hospital Course History of Present Illness Source: patient, family 77 y/o M c/o BRBPR. Pt's states that they were woken up around 330am when their phone rang with a wrong number. Pt got up at that time to use the bathroom after noting rectal pressure. He passed a small amount of stool, but mostly bright red blood as liquid and noted some clots as well. He has a photo of this and it is noted to be bright red. He states he had no pain with this bowel movement, just the pressure. This happened again later in the morning, so they decided to come to the ED for evaluation. Dr. Lujan saw the pt in the ED and shortly after he did a rectal exam, the pt had a third episode of painless BRBPR. Pt denies abd pain, n/v. He states that he has had hemorrhoids for 20 years and that he does periodically get a small amount of blood on the toilet tissue only after a bowel movement. This happens maybe twice a month. He does note that this happened last night. He has had regular bowel movements the last few days. No constipation or diarrhea. He ate pizza yesterday, which he doesn't generally eat, but has eaten in the past without issue. Pt otherwise feels at his usual. Pt does take 2 naproxen QD for the last 25 years for OA related pain. He states he does generally take it with food, but cannot say if this has been the case the last few days. He may have taken it on an empty stomach. He did not drink alcohol the last few nights. No additional naproxen. Pt notes he has has "irritable bowels since I was 3 yrs old". He states he occasionally has abd cramping with diarrhea, but did not have this recently. Pt notes that in 2009, he and his completed a 3[place] [place] trip for their [place]. There was a lot of sitting in the car and eating a lot of atypical foods. Upon returning home, he had a similar episode of BRBPR. He was seen at [facility] by Dr. Ponce and had a c-scope/EGD with Dr. Stanton that were neg other than large hemorrhoids. He underwent a hemorrhoidectomy with Dr. Saez at that time. He was taking naproxen at that time as well. Pt is uncertain if he took his BP medication this AM, but states his BP has been 130s/80s generally. He does remember getting it out of the package, but cannot remember taking it W[facility] [employer]EWARD. Pt denies fever, SOB, chest pain, c/d, LE pain. Pt does occasionally get LE swelling. PE: General Appearance: WD/WN, no apparent distress Head: normocephalic, atraumatic Eyes: normal inspection, EOMI ENT: hearing grossly normal Neck: supple Respiratory/Chest: normal breath sounds, no respiratory distress Cardiovascular: regular rate, rhythm, no edema Abdomen/GI: non tender, soft, + distended (minimally) Extremities/Musculoskelatal: no calf tenderness, no pedal edema Neurologic/Psych: alert, normal mood/affect, oriented x 3 Skin: normal color, warm/dry Hospital Course: 77 y/o M who was admitted on 05/19 for GIB Overnight events include episode where code abigail was called for hypotension and bradycardia after pt was walking to the bathroom and sat down on the toilet. HR in the 30s-40s and BP at that time not obtained. Per nursing notes pt slumped over and went in and out of consciousness approximately 3 times and was assisted into wheelchair and then into bed. BP stable once in bed - 174/89, HR immediately returned into 60s. - BP stable since then. Contents in toilet included bright red blood x 1 - since then denies blood seen with bowel movements/bowel prep EKG was obtained overnight showing T wave inversions in V4 and V5 - negative for cardiac sx this morning Pt was continued on Go-lytely prep - finished 2/3 of the prep GIB: - BRBPR x3 suggesting hemorrhoid bleeding, however external hemorrhoids neg for signs of bleeding per ED physician exam with heme + stool - Hgb remains stabled - Planned colonoscopy and endoscopy completed on 05/21/17 Showed internal hemorrhoids, gastroenteritis and 5 polpys were resected with a hot snare and biopsies sent to pathology Follow up with Dr. Ponce for pathology results has been requested, and follow up colonoscopy based upon those reports. - Cont Protonix BID at time of discharge Hypokalemia - resolved - replaced PO HTN - labile in the ED in the setting of likely missed meds - Pt was given additional dosing on day of admission - possible that combination of GIB and extra dose of medication precipitated presyncopal episode as above. - Stable DVT ppx: no chemical anticoagulation in the setting of GIB, ambulatory CODE STATUS: Full code Disposition: From home, discharged on 05/21 Total Time Spent: Greater than 30 minutes This includes examination of the patient, discharge planning, medication reconciliation, and communication with other providers. Discharge Instructions Please refer to the electronic Patient Visit Report (Discharge Instructions) for additional information. Follow-Up - Dr. Altman in one week for hospital follow up - Dr. Ponce for repeat colonoscopy based on pathology results, they will provide instructions Additional Copies To Orlando Altman M.D.
== END 2017-05-20 20:04 | disposition home or self-care (01) | DRG 394 ==
LOC: C.EDB 08:45 → C.2T 12:42 → ENRESERV 13:32 → OBSVTOIN 05-20 15:10
PROVIDERS: ADMIT Family Medicine; ATTEND Internal Medicine
PROC: 0DB68ZX Excision of Stomach, Via Natural or Artificial Opening Endoscopic, Diagnostic (ICD-10-PCS; principal; 2017-05-20 15:49)
PROC: 0DBH8ZX Excision of Cecum, Via Natural or Artificial Opening Endoscopic, Diagnostic (ICD-10-PCS; principal; 2017-05-20 15:49)
DX: K64.4 Residual hemorrhoidal skin tags (principal); K62.5 Hemorrhage of anus and rectum; K64.8 Other hemorrhoids; D12.0 Benign neoplasm of cecum; K29.70 Gastritis, unspecified, without bleeding; K57.30 Diverticulosis of large intestine without perforation or abscess without bleeding; E87.6 Hypokalemia; R55 Syncope and collapse; I10 Essential (primary) hypertension; M19.90 Unspecified osteoarthritis, unspecified site; E66.9 Obesity, unspecified; Z68.31 Body mass index [BMI] 31.0-31.9, adult; Z87.19 Personal history of other diseases of the digestive system; Z87.891 Personal history of nicotine dependence; Z79.1 Long term (current) use of non-steroidal anti-inflammatories (NSAID); Z79.899 Other long term (current) drug therapy; Z80.42 Family history of malignant neoplasm of prostate; Z83.3 Family history of diabetes mellitus; Z82.49 Family history of ischemic heart disease and other diseases of the circulatory system; Z84.1 Family history of disorders of kidney and ureter

== ENCOUNTER → 2017-07-01 | Outpatient (CLI) | payer BC ==
[~2017-07-01] MED LIST changes: +COENCAP9 PO; +OMEG10007 PO; +PANT40TA PO; +PSYL48.59 PO; +TURM500T PO
--- NOTE | 2017-07-01 14:42 | DIAGNOSTIC IMAGING REPORT ---
PET/CT HISTORY: LYMPHOMA TECHNIQUE: PET/CT was performed from the base of the skull through the pelvis following the intravenous administration of mCi of F18-FDG. Non-contrast CT imaging was performed over the same range without breath-hold for attenuation correction of PET images and anatomic correlation, but not for primary interpretation as it is not of standard diagnostic quality. CT DOSE: COMPARISON: FINDINGS: HEAD AND NECK: There is no FDG-avid disease or significant lymphadenopathy in the imaged portions of the head and the neck. A 1.2 cm right thyroid nodule. CHEST: There is no FDG-avid disease in the chest. There is no axillary, mediastinal, or hilar lymphadenopathy. There is no pleural or pericardial effusion. There is no air-space disease or suspicious lung nodule. Small focal areas of mild FDG uptake within the bilateral irving is likely due to the normal pulmonary vessels. The ascending thoracic aorta measures 4.4 cm in diameter. ABDOMEN/PELVIS: Below the diaphragm, tracer is distributed physiologically in the gastrointestinal and genitourinary tracts. There is no significant lymphadenopathy and no FDG-avid disease. Cholecystectomy. Right renal cysts. Colonic diverticulosis. MUSCULOSKELETAL: There is no FDG-avid or destructive bone lesion. IMPRESSION: 1. No FDG avid disease identified. 2. The ascending thoracic aorta measures 4.4 cm in diameter. Electronically signed by: Srinivasa Andrea M.D. 07/01/2017 2:41 PM Dictated Date/Time: 07/01/2017 2:25 PM
== END | disposition home or self-care (01) ==
LOC: C.PET 10:50
PROVIDERS: ATTEND Internal Medicine Hematology & Oncology
DX: C88.4 Extranodal marginal zone B-cell lymphoma of mucosa-associated lymphoid tissue [MALT-lymphoma] (principal)

== ENCOUNTER 2017-07-11 11:04 | Inpatient (IN) | payer BC, OTHER ==
[~2017-07-11] VITALS: Ht 182.9 cm; Wt 110.5 kg
--- NOTE | 2017-07-11 11:17 | EMERGENCY ROOM VISIT NOTE ---
History Report prepared by Mike: Felice Madera Under the Supervision of: Dr. Mike Miller M.D. First contact with patient: 11:07 Chief Complaint: FALL Stated Complaint: FALL/L-HIP PAIN History of Present Illness The patient is a 77 year old male who presents to the Emergency Room with complaints of left hip pain status post mechanical fall prior to arrival. Per his , the patient slipped and fell on ice. The patient has a history of HTN , high cholesterol, hip arthritis, and a cholecystectomy. He denies a history of asthma. 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 A total of 10 systems reviewed and were otherwise negative. Past Medical & Surgical Medical Problems: (1) Gallbladder disease (2) Hypertension (3) Intertrochanteric fracture of left femur (4) Kidney stones (5) Pneumonia Surgical Problems: (1) Hx of cholecystectomy Family History Cancer Diabetes mellitus Gallbladder disease Hypertension Kidney disease Kidney stones Social History Smoking Status: Former Smoker Alcohol Use: occasionally Drug Use: none Marital Status: Housing Status: lives with family Current/Historical Medications Scheduled Atenolol (Tenormin), 25 MG PO DAILY Coenzyme Q15-Xvji Oil-Vitamin (Co-Q 10 [place]-3 Fish Oil), 1 CAP PO QAM Fish Oil ([place]-3), 1 CAP PO QAM Multivitamin (Multivitamin), 1 TAB PO DAILY Naproxen (Aleve), 220 MG PO DAILY Pantoprazole (Protonix), 40 MG PO DAILY Psyllium (Metamucil), 1 DOSE PO QAM Telmisartan/Hctz (Micardis Hct 80MG/12.5MG), 1 TAB PO DAILY Turmeric (Curcuma Longa) (Turmeric), 1 TAB PO QAM Allergies Coded Allergies: No Known Allergies (Unverified , 07/11/17) Physical Exam Vital Signs Date Time Temp Pulse Resp B/P (MAP) Pulse Ox O2 Delivery O2 Flow Rate FiO2 07/11/17 12:21 81 07/11/17 12:10 79 20 179/84 99 Room Air 07/11/17 11:34 36.7 80 20 186/87 100 Room Air Physical Exam GENERAL: Patient is uncomfortable appearing and in moderate distress. HEENT: No acute trauma, normocephalic atraumatic, mucous membranes moist, no nasal congestion, no scleral icterus. NECK: No stridor, no adenopathy, no meningismus, trachea is midline. LUNGS: No dyspnea. Clear to auscultation and equal bilaterally. No wheeze, no rhonchi. HEART: Regular rate and rhythm. No murmurs, rubs, gallops appreciated. ABDOMEN: Soft, nontender, bowel sounds positive, no masses appreciated, no peritonitis. BACK: No midline tenderness, no CVA tenderness EXTREMITIES: Shortened externally rotated left leg. Pain with rotation of left hip. No cyanosis, no edema. NEUROLOGIC: Alert and oriented, no acute motor or sensory deficits, no focal weakness, cranial nerves grossly intact. Distal NV in tact. SKIN: No rash, no jaundice, no diaphoresis. Medical Decision & Procedures ER Provider Diagnostic Interpretation: Radiology results and stated below per my review and radiologist interpretation: SINGLE VIEW CHEST CLINICAL HISTORY: Trauma. Fall. FINDINGS: An AP, portable, supine chest radiograph is compared to study dated 05/22/2016. The examination is degraded by portable technique and patient rotation. The heart is enlarged. The pulmonary vasculature is noncongested. Chronic interstitial thickening is similar to previous. No airspace consolidation or large pleural effusion is identified. No pneumothorax is seen. The skeletal structures are osteopenic. The bony thorax is grossly intact. Cholecystectomy clips are identified in the right upper quadrant. IMPRESSION: Cardiomegaly with no acute cardiopulmonary abnormality. Electronically signed by: Flavio Masterson M.D. 07/11/2017 12:16 PM Dictated Date/Time: 07/11/2017 12:16 PM SINGLE VIEW PELVIS; 2 VIEWS LEFT FEMUR CLINICAL HISTORY: Fall with left leg pain. FINDINGS: An AP view of the pelvis with AP and crosstable lateral views of the left femur are obtained. Correlation is made with radiographs of the left hip dated 11/15/2014. The skeletal structures are osteopenic. The bony pelvis appears intact, as does the right hip. There is a mildly distracted intertrochanteric fracture of the left femur with overlying soft tissue edema. There is mild medial avulsion of the lesser trochanter. The distal left femur is intact. Benign-appearing periostitis is noted along the femoral shaft. Arthritic change is noted in the knee. Moderate to advanced arthritic change in seen in both hips. Sclerotic change is identified in the sacroiliac joints and pubic symphysis. Lumbosacral spondylosis is partially visualized. Phlebolith are seen in the pelvis. IMPRESSION: 1. There is an intertrochanteric left femoral fracture with overlying soft tissue edema as above. 2. The distal left femur is intact. 3. No fracture is seen involving the bony pelvis or right hip. Electronically signed by: Flavio Masterson M.D. 07/11/2017 12:15 PM Dictated Date/Time: 07/11/2017 12:12 PM SINGLE VIEW PELVIS; 2 VIEWS LEFT FEMUR CLINICAL HISTORY: Fall with left leg pain. FINDINGS: An AP view of the pelvis with AP and crosstable lateral views of the left femur are obtained. Correlation is made with radiographs of the left hip dated 11/15/2014. The skeletal structures are osteopenic. The bony pelvis appears intact, as does the right hip. There is a mildly distracted intertrochanteric fracture of the left femur with overlying soft tissue edema. There is mild medial avulsion of the lesser trochanter. The distal left femur is intact. Benign-appearing periostitis is noted along the femoral shaft. Arthritic change is noted in the knee. Moderate to advanced arthritic change in seen in both hips. Sclerotic change is identified in the sacroiliac joints and pubic symphysis. Lumbosacral spondylosis is partially visualized. Phlebolith are seen in the pelvis. IMPRESSION: 1. There is an intertrochanteric left femoral fracture with overlying soft tissue edema as above. 2. The distal left femur is intact. 3. No fracture is seen involving the bony pelvis or right hip. Electronically signed by: Flavio Masterson M.D. 07/11/2017 12:15 PM Dictated Date/Time: 07/11/2017 12:12 PM Laboratory Results 07/11/17 11:25 Red Blood Count 4.87, Mean Corpuscular Volume 92.0, Mean Corpuscular Hemoglobin 31.8, Mean Corpuscular Hemoglobin Concent 34.6, Mean Platelet Volume 10.9, Neutrophils (%) (Auto) 70.5, Lymphocytes (%) (Auto) 19.0, Monocytes (%) (Auto) 9.4, Eosinophils (%) (Auto) 0.5, Basophils (%) (Auto) 0.3, Neutrophils # (Auto) 4.58, Lymphocytes # (Auto) 1.23, Monocytes # (Auto) 0.61, Eosinophils # (Auto) 0.03, Basophils # (Auto) 0.02 07/11/17 11:25 Test 07/11/17 11:25 White Blood Count 6.49 K/uL (4.8-10.8) Red Blood Count 4.87 M/uL (4.7-6.1) Hemoglobin 15.5 g/dL (14.0-18.0) Hematocrit 44.8 % (42-52) Mean Corpuscular Volume 92.0 fL (80-100) Mean Corpuscular Hemoglobin 31.8 pg (25-34) Mean Corpuscular Hemoglobin Concent 34.6 g/dl (32-36) Platelet Count 189 K/uL (130-400) Mean Platelet Volume 10.9 fL (7.4-10.4) Neutrophils (%) (Auto) 70.5 % Lymphocytes (%) (Auto) 19.0 % Monocytes (%) (Auto) 9.4 % Eosinophils (%) (Auto) 0.5 % Basophils (%) (Auto) 0.3 % Neutrophils # (Auto) 4.58 K/uL (1.4-6.5) Lymphocytes # (Auto) 1.23 K/uL (1.2-3.4) Monocytes # (Auto) 0.61 K/uL (0.11-0.59) Eosinophils # (Auto) 0.03 K/uL (0-0.5) Basophils # (Auto) 0.02 K/uL (0-0.2) RDW Standard Deviation 44.2 fL (36.4-46.3) RDW Coefficient of Variation 13.2 % (11.5-14.5) Immature Granulocyte % (Auto) 0.3 % Immature Granulocyte # (Auto) 0.02 K/uL (0.00-0.02) Prothrombin Time 11.3 SECONDS (9.0-12.0) Prothromb Time International Ratio 1.1 (0.9-1.1) Activated Partial Thromboplast Time 25.3 SECONDS (21.0-31.0) Partial Thromboplastin Ratio 1.0 Anion Gap 6.0 mmol/L (3-11) Est Creatinine Clear Calc Drug Dose 63.6 ml/min Estimated GFR () 65.6 Estimated GFR (Non- 56.6 BUN/Creatinine Ratio 16.3 (10-20) Calcium Level 9.1 mg/dl (8.5-10.1) Troponin I < 0.015 ng/ml (0-0.045) Medications Administered Medications (Trade) Dose Ordered Sig/Shawn Route Start Time Stop Time Status Last Admin Dose Admin Hydromorphone HCl (Dilaudid Inj) 1 mg NOW STAT IV 07/11/17 11:18 07/11/17 11:20 DC 07/11/17 11:30 1 MG Ondansetron HCl (Zofran Inj) 4 mg NOW STAT IV 07/11/17 11:18 07/11/17 11:20 DC 07/11/17 11:29 4 MG Hydromorphone HCl (Dilaudid Inj) 1 mg Q30M PRN IV 07/11/17 12:15 07/11/17 14:35 DC 07/11/17 12:47 1 MG ECG Indication: other (fall) Rate (beats per minute): 70 Rhythm: normal sinus Findings: T-wave inversion (Lateral), no acute ischemic change, no ectopy Change: EKG interpreted by me. ED Course 1107: The patient was evaluated in room A2. A complete history and physical exam was performed. 1206: I checked on the patient and discussed management plan with them. 1311: I checked on the patient. They are hypertensive and will be monitored by hospitalist. Medical Decision 77 yr old male arrives with left hip pain s/p mechanical fall on ice. No other injuries and denies head/neck pain. Pain controlled with IV narcotics. Imaging consistent with hip fracture. Ortho on board. Medicine will bring in. Stable throughout ED stay. Head Trauma GCS Score: 15 Medication Reconcilliation Current Medication List: was personally reviewed by me Blood Pressure Screening Patient's blood pressure: Elevated blood pressure Blood pressure disposition: Elevated BP felt to be situational Impression Primary Impression: Hip fracture, left Additional Impression: Fall Scribe Attestation The scribe's documentation has been prepared under my direction and personally reviewed by me in its entirety. I confirm that the note above accurately reflects all work, treatment, procedures, and medical decision making performed by me. Departure Information Dispostion Being Evaluated By Hospitalist Orlando Araujo M.D. (PCP) Patient Instructions [facility] Problem Qualifiers
[2017-07-11] MEDS ORDERED: ONDANSETRON INJ 2 MG/ML 2 ML VIAL IV STA (11:18)
[2017-07-11] MEDS ORDERED: HYDROmorphone INJ 1 MG/ML SYR IV STA (11:18)
[2017-07-11 11:47] LABS: BASO % 0.3 %; BASO ABS # 0.02 K/uL (0-0.2); EOS % 0.5 %; EOS ABS # 0.03 K/uL (0-0.5); HEMATOCRIT 44.8 % (42-52); HEMOGLOBIN 15.5 g/dL (14.0-18.0); IG# 0.02 K/uL (0.00-0.02); LYMPH ABS # 1.23 K/uL (1.2-3.4); MEAN CORPUSCULAR HEMOGLOBIN 31.8 pg (25-34); MEAN CORPUSCULAR HGB CONC 34.6 g/dl (32-36); MEAN PLATELET VOLUME 10.9 fL (7.4-10.4); MONO % 9.4 %; MONO ABS # 0.61 K/uL (0.11-0.59); NEUT % 70.5 %; NEUT ABS # 4.58 K/uL (1.4-6.5); PLATELET COUNT 189 K/uL (130-400); RED CELL DISTRIBUTION WIDTH CV 13.2 % (11.5-14.5); RED CELL DISTRIBUTION WIDTH SD 44.2 fL (36.4-46.3); WHITE BLOOD COUNT 6.49 K/uL (4.8-10.8)
[2017-07-11 11:55] LABS: BLOOD UREA NITROGEN 20 mg/dl (7-18); CALCIUM 9.1 mg/dl (8.5-10.1); CARBON DIOXIDE 29 mmol/L (21-32); CREATININE 1.21 mg/dl (0.60-1.40); GLUCOSE 135 mg/dl (70-99); INR 1.1 (0.9-1.1); POTASSIUM 3.5 mmol/L (3.5-5.1); PTT PATIENT 25.3 SECONDS (21.0-31.0); SODIUM 138 mmol/L (136-145)
[2017-07-11] MEDS ORDERED: HYDROmorphone INJ 1 MG/ML SYR IV PRN (12:15)
--- NOTE | 2017-07-11 12:17 | DIAGNOSTIC IMAGING REPORT ---
SINGLE VIEW PELVIS; 2 VIEWS LEFT FEMUR CLINICAL HISTORY: Fall with left leg pain. FINDINGS: An AP view of the pelvis with AP and crosstable lateral views of the left femur are obtained. Correlation is made with radiographs of the left hip dated 11/15/2014. The skeletal structures are osteopenic. The bony pelvis appears intact, as does the right hip. There is a mildly distracted intertrochanteric fracture of the left femur with overlying soft tissue edema. There is mild medial avulsion of the lesser trochanter. The distal left femur is intact. Benign-appearing periostitis is noted along the femoral shaft. Arthritic change is noted in the knee. Moderate to advanced arthritic change in seen in both hips. Sclerotic change is identified in the sacroiliac joints and pubic symphysis. Lumbosacral spondylosis is partially visualized. Phlebolith are seen in the pelvis. IMPRESSION: 1. There is an intertrochanteric left femoral fracture with overlying soft tissue edema as above. 2. The distal left femur is intact. 3. No fracture is seen involving the bony pelvis or right hip. Electronically signed by: Flavio Masterson M.D. 07/11/2017 12:15 PM Dictated Date/Time: 07/11/2017 12:12 PM
--- NOTE | 2017-07-11 12:18 | DIAGNOSTIC IMAGING REPORT ---
SINGLE VIEW CHEST CLINICAL HISTORY: Trauma. Fall. FINDINGS: An AP, portable, supine chest radiograph is compared to study dated 05/22/2016. The examination is degraded by portable technique and patient rotation. The heart is enlarged. The pulmonary vasculature is noncongested. Chronic interstitial thickening is similar to previous. No airspace consolidation or large pleural effusion is identified. No pneumothorax is seen. The skeletal structures are osteopenic. The bony thorax is grossly intact. Cholecystectomy clips are identified in the right upper quadrant. IMPRESSION: Cardiomegaly with no acute cardiopulmonary abnormality. Electronically signed by: Flavio Masterson M.D. 07/11/2017 12:16 PM Dictated Date/Time: 07/11/2017 12:16 PM
--- NOTE | 2017-07-11 12:33 | History and Physical ---
History & Physical Date & Time of Service: Jul 11, 2017 at 12:25 Chief Complaint: Fall/L-Hip Pain Primary Care Physician: Orlando Altman M.D. History of Present Illness Source: patient 78 yo male comes into hosptial after slipping on some ICE on the drive way. Patient fell on his left side and felt sevre pain after falling. He went to the ER where it was confirmed he had a left intertrochanteric fracture. In the outpatient setting, patient was recently diagnosed with a Maltoma from an EGD. Patient has not started local radiation therapy. Patient denies any histry of storke, TIA, CKD, insulin use, [place], CHF. Past Medical/Surgical History Past Medical History 1. History of Cellulitis (L03.90) 2. History of Cellulitis of trunk (L03.319) 3. History of basal cell carcinoma (Z85.828) 4. History of diverticulitis of colon (Z87.19) 5. History of herpes zoster (Z86.19) 6. History of pyelonephritis (Z87.448) 7. History of sebaceous cyst (Z87.2) 8. History of Iron Deficiency Anemia Secondary To Chronic Blood Loss 9. History of Muscle spasm (M62.838) 10. History of Pain of right scapula (M89.8X1) 11. History of Scalp laceration (S01.01XA) Acute 12. History of abscess of skin and subcutaneous tissue (Z87.2) 13. History of acute bronchitis (Z87.09) 14. History of acute sinusitis (Z87.09) 15. Maltoma Surgical History 1. History of Cholecystectomy 2. History of Complete Colonoscopy 3. History of Hemorrhoidectomy 4. History of Mohs Micrographic Surgery Face 5. History of Surgery 6. History of Tonsillectomy Family History Cancer Diabetes mellitus Gallbladder disease Hypertension Kidney disease Kidney stones 1. Family history of Breast Cancer 2. Family history of Crohn's (Granulomatous) Colitis 3. Family history of Gastric Cancer Family History 4. Family history of Coronary Artery Disease 5. Family history of Diabetes Mellitus 6. Family history of Stroke Syndrome 7. Family history of Thyroid Disorder Social History Smoking Status: Former Smoker Drug Use: none Marital Status: Housing status: lives with significant other Occupational Status: retired Immunizations History of Influenza Vaccine: No History of Tetanus Vaccine?: Yes Tetanus Immunization Date: Apr 07, 2006 History of Pneumococcal: No History of Hepatitis B Vaccine: No Multi-Drug Resistant Organisms History of MDRO: No Allergies Coded Allergies: No Known Allergies (Unverified , 07/11/17) Home Medications Scheduled Atenolol (Tenormin), 25 MG PO DAILY Coenzyme F96-Bcfo Oil-Vitamin (Co-Q 10 [place]-3 Fish Oil), 1 CAP PO QAM Fish Oil ([place]-3), 1 CAP PO QAM Multivitamin (Multivitamin), 1 TAB PO DAILY Naproxen (Aleve), 220 MG PO DAILY Pantoprazole (Protonix), 40 MG PO DAILY Psyllium (Metamucil), 1 DOSE PO QAM Telmisartan/Hctz (Micardis Hct 80MG/12.5MG), 1 TAB PO DAILY Turmeric (Curcuma Longa) (Turmeric), 1 TAB PO QAM Review of Systems Constitutional: No fever, No chills ENT: No hearing loss, No unusual epistaxis Respiratory: No cough, No sputum Cardiovascular: No chest pain, No orthopnea Abdomen: No pain, No nausea Musculoskeletal: + joint pain, + muscle pain Neurologic: No memory loss, No paralysis Psychiatric: No depression symptoms Endocrine: No fatigue Hematologic / Lymphatic: No abnormal bleeding/bruising Integumentary: No rash Allergic / Immunologic: No environmental allergies Physical Exam Vital Signs Date Time Temp Pulse Resp B/P (MAP) Pulse Ox O2 Delivery O2 Flow Rate FiO2 07/11/17 12:21 81 07/11/17 12:10 79 20 179/84 99 Room Air 07/11/17 11:34 36.7 80 20 186/87 100 Room Air General Appearance: WD/WN, no apparent distress Head: normocephalic Eyes: normal inspection ENT: normal ENT inspection, hearing grossly normal Neck: supple, no adenopathy Respiratory/Chest: chest non-tender, lungs clear, normal breath sounds Cardiovascular: regular rate, rhythm, no edema Abdomen/GI: normal bowel sounds, non tender, soft Back: normal inspection Extremities/Musculoskelatal: + pertinent finding (TTP over left hip.) Neurologic/Psych: alert, oriented x 3 Skin: normal color Lymphatic: no adenopathy Diagnostics Laboratory Results Results Past 24 Hours Test 07/11/17 11:25 Range/Units White Blood Count 6.49 4.8-10.8 K/uL Red Blood Count 4.87 4.7-6.1 M/uL Hemoglobin 15.5 14.0-18.0 g/dL Hematocrit 44.8 42-52 % Mean Corpuscular Volume 92.0 80-100 fL Mean Corpuscular Hemoglobin 31.8 25-34 pg Mean Corpuscular Hemoglobin Concent 34.6 32-36 g/dl Platelet Count 189 130-400 K/uL Mean Platelet Volume 10.9 7.4-10.4 fL Neutrophils (%) (Auto) 70.5 % Lymphocytes (%) (Auto) 19.0 % Monocytes (%) (Auto) 9.4 % Eosinophils (%) (Auto) 0.5 % Basophils (%) (Auto) 0.3 % Neutrophils # (Auto) 4.58 1.4-6.5 K/uL Lymphocytes # (Auto) 1.23 1.2-3.4 K/uL Monocytes # (Auto) 0.61 0.11-0.59 K/uL Eosinophils # (Auto) 0.03 0-0.5 K/uL Basophils # (Auto) 0.02 0-0.2 K/uL RDW Standard Deviation 44.2 36.4-46.3 fL RDW Coefficient of Variation 13.2 11.5-14.5 % Immature Granulocyte % (Auto) 0.3 % Immature Granulocyte # (Auto) 0.02 0.00-0.02 K/uL Prothrombin Time 11.3 9.0-12.0 SECONDS Prothromb Time International Ratio 1.1 0.9-1.1 Activated Partial Thromboplast Time 25.3 21.0-31.0 SECONDS Partial Thromboplastin Ratio 1.0 Sodium Level 138 136-145 mmol/L Potassium Level 3.5 3.5-5.1 mmol/L Chloride Level 103 98-107 mmol/L Carbon Dioxide Level 29 21-32 mmol/L Anion Gap 6.0 3-11 mmol/L Blood Urea Nitrogen 20 7-18 mg/dl Creatinine 1.21 0.60-1.40 mg/dl Est Creatinine Clear Calc Drug Dose 63.6 ml/min Estimated GFR () 65.6 Estimated GFR (Non- 56.6 BUN/Creatinine Ratio 16.3 10-20 Random Glucose 135 70-99 mg/dl Calcium Level 9.1 8.5-10.1 mg/dl Troponin I < 0.015 0-0.045 ng/ml EKG Normal Sinus Rhythm Nonspecific T wave abnormality Abnormal ECG When compared with ECG of 19-MAY-2017 22:08, T wave inversion no longer evident in Anterior leads QT has shortened Confirmed by NOE ZUNIGA ([id number]) on 07/11/2017 9:25:55 PM Impression Assessment and Plan intertrochanteric left femoral fracture S/P mechanical fall in a 77 yo male with history of HTN and Maltoma Will admit to med surg consulted ortho Patients relative RCRI is 0. Patient is low risk for an intermediate risk procedure. Patient and family understand the risk Hypertensive Urgency and Perioperative medicine management. Patient did not take morning meds and BP is elevated 170s systolic. will give stat dose of beta elizabeth and arb. Will hold diuretic as patient may be going to surgery today. Hypertension as noted above. H/O Maltoma Stable. ay consider outpatient radiation, On PPI H/O gastritis on PPI. controlled DVT will hold heparin as patient may go to surgery soon. SCD Level of Care Med/Surg Advanced Directives Existing Advance Directive: No Existing Living Will: No Existing Power of Rug Dyer: No Existing Health Care Proxy: No Resuscitation Status FULL RESUSCITATION VTE Prophylaxis VTE Risk Assessment Done? Y/N: Yes Risk Level: Moderate Given or contraindicated: SCD's
[2017-07-11] MEDS ORDERED: INFLUENZA VIRUS QUAD VACCINE 0.5 ML SYR IM. ONE (12:45)
[2017-07-11] MEDS ORDERED: PNEUMOCOCCAL POLYSACCHARIDES 25 MCG/0.5 ML VIAL/SYR IM. ONE (12:45)
[2017-07-11] MEDS ORDERED: ALUMINUM/MAGNESIUM/SIMETH (MAALOX MAX) 30 ML UDC PO PRN (12:45)
[2017-07-11] MEDS ORDERED: MAGNESIUM HYDROXIDE SUSP 30 ML UDC PO PRN (12:45)
[2017-07-11] MEDS ORDERED: TELMISARTAN 40 MG TAB PO ONE (13:03)
[2017-07-11 14:29] VITALS: BP 155/80; PULSE 84; TEMP 37.2; O2SAT 97; BMI 33.0
[2017-07-11 15:30] VITALS: BP 164/83; PULSE 78; TEMP 36.7; O2SAT 95
--- NOTE | 2017-07-11 15:57 | Orthopedic Consultation ---
Orthopedic Consultation Date of Consultation: Jul 11, 2017. Attending Physician: Filemon Ortiz M.D. Reason for Consultation: Left hip injury History of Present Illness 77 y.o. male sustained mechanical ground level fall this morning when he slipped on some ice. No syncope or LOC. Fell directly onto left hip. Had immediate pain and inability to bear weight. Denies any other injuries. He notes that he has known hip arthritis with pre-existing pain in hip. He says the pain is not terrible, and mostly bothers him in the morning when he first starts ambulating, but improves during the day. He has never had any steroid injections for treatment of this arthritis yet. Past Medical/Surgical History Medical Problems: (1) Fall Status: Acute (2) GI bleed Status: Acute (3) Hip fracture, left Status: Acute Family History Cancer Diabetes mellitus Gallbladder disease Hypertension Kidney disease Kidney stones Social History Smoking Status: Never Smoker Drug Use: none Marital Status: Housing Status: lives with family Allergies Coded Allergies: No Known Allergies (Unverified , 07/11/17) Home Medications Scheduled Atenolol (Tenormin), 25 MG PO DAILY Coenzyme E89-Qmpo Oil-Vitamin (Co-Q 10 [place]-3 Fish Oil), 1 CAP PO QAM Fish Oil ([place]-3), 1 CAP PO QAM Multivitamin (Multivitamin), 1 TAB PO DAILY Naproxen (Aleve), 220 MG PO DAILY Pantoprazole (Protonix), 40 MG PO DAILY Psyllium (Metamucil), 1 DOSE PO QAM Telmisartan/Hctz (Micardis Hct 80MG/12.5MG), 1 TAB PO DAILY Turmeric (Curcuma Longa) (Turmeric), 1 TAB PO QAM Current Inpatient Medications Current Inpatient Medications Medications (Trade) Dose Ordered Sig/Shawn Route Start Time Stop Time Status Last Admin Dose Admin Acetaminophen (Tylenol Tab) 650 mg Q4H PRN PO 07/11/17 12:45 08/10/17 12:44 Al Hydrox/Mg Hydrox/Simethicone (Maalox Max Susp) 15 ml Q4H PRN PO 07/11/17 12:45 08/10/17 12:44 Magnesium Hydroxide (Milk Of Magnesia Susp) 30 ml Q6H PRN PO 07/11/17 12:45 08/10/17 12:44 Ondansetron HCl (Zofran Inj) 4 mg Q6H PRN IV 07/11/17 12:45 08/10/17 12:44 Atenolol (Tenormin Tab) 25 mg DAILY PO 07/12/17 09:00 08/11/17 08:59 Multivitamins (Multivitamin Tab) 1 tab DAILY PO 07/12/17 09:00 08/11/17 08:59 Pantoprazole Sodium (Protonix Tab) 40 mg DAILY PO 07/12/17 09:00 08/11/17 08:59 Psyllium Hydrophilic Mucilloid (Metamucil Powder) 1 pkt QAM PO 07/12/17 09:00 08/11/17 08:59 Morphine Sulfate (MoRPHine SULFATE INJ) 4 mg Q4H PRN IV 07/11/17 12:45 07/25/17 12:44 Telmisartan (Micardis Tab) 80 mg QAM PO 07/12/17 09:00 08/11/17 08:59 Physical Exam Date Time Temp Pulse Resp B/P (MAP) Pulse Ox O2 Delivery O2 Flow Rate FiO2 07/11/17 14:29 37.2 84 16 155/80 97 Room Air 07/11/17 14:00 76 20 157/101 99 Room Air 07/11/17 13:00 84 20 159/88 99 Room Air 07/11/17 12:49 85 20 193/106 99 Room Air 07/11/17 12:21 81 07/11/17 12:10 79 20 179/84 99 Room Air 07/11/17 11:34 36.7 80 20 186/87 100 Room Air Left leg: Shortened and externally rotated. Skin over hip intact without laceration or abrasion. Thigh soft and compressible. Moderate tenderness to palpation. Pain with hip ROM. Motor and sensory function intact distally in tibial and peroneal distributions. Foot warm and well perfused. General Appearance: no apparent distress Head: normocephalic Neurologic/Psych: no motor/sensory deficits Skin: normal color, warm/dry Laboratory Results Last 24 Hours Test 07/11/17 11:25 White Blood Count 6.49 K/uL Red Blood Count 4.87 M/uL Hemoglobin 15.5 g/dL Hematocrit 44.8 % Mean Corpuscular Volume 92.0 fL Mean Corpuscular Hemoglobin 31.8 pg Mean Corpuscular Hemoglobin Concent 34.6 g/dl Platelet Count 189 K/uL Mean Platelet Volume 10.9 fL Neutrophils (%) (Auto) 70.5 % Lymphocytes (%) (Auto) 19.0 % Monocytes (%) (Auto) 9.4 % Eosinophils (%) (Auto) 0.5 % Basophils (%) (Auto) 0.3 % Neutrophils # (Auto) 4.58 K/uL Lymphocytes # (Auto) 1.23 K/uL Monocytes # (Auto) 0.61 K/uL Eosinophils # (Auto) 0.03 K/uL Basophils # (Auto) 0.02 K/uL RDW Standard Deviation 44.2 fL RDW Coefficient of Variation 13.2 % Immature Granulocyte % (Auto) 0.3 % Immature Granulocyte # (Auto) 0.02 K/uL Prothrombin Time 11.3 SECONDS Prothromb Time International Ratio 1.1 Activated Partial Thromboplast Time 25.3 SECONDS Partial Thromboplastin Ratio 1.0 Sodium Level 138 mmol/L Potassium Level 3.5 mmol/L Chloride Level 103 mmol/L Carbon Dioxide Level 29 mmol/L Anion Gap 6.0 mmol/L Blood Urea Nitrogen 20 mg/dl Creatinine 1.21 mg/dl Est Creatinine Clear Calc Drug Dose 63.6 ml/min Estimated GFR () 65.6 Estimated GFR (Non- 56.6 BUN/Creatinine Ratio 16.3 Random Glucose 135 mg/dl Calcium Level 9.1 mg/dl Troponin I < 0.015 ng/ml Radiology: Left hip XR shows comminuted intertrochanteric fracture. Lesser troch off. No significant subtroch extension. Significant hip arthritis noted. Assessment & Plan (1) Intertrochanteric fracture of left femur Assessment & Plan: Left hip intertroch fracture. -Will require urgent ORIF. Plan for fixation with IM nail construct. I explained that unfortunately, we cannot address his hip arthritis with a joint replacement-type construct with this fracture pattern. -NPO for surgery. Problem Qualifiers (1) Intertrochanteric fracture of left femur: Encounter type: initial encounter Fracture type: closed Fracture alignment: displaced Qualified Codes: S72.142A - Displaced intertrochanteric fracture of left femur, initial encounter for closed fracture
[2017-07-11] MEDS: MoRPHine SULFATE 4 MG/ML 1 ML CARP\\VIAL IV PRN ×2 (16:08→19:59)
[2017-07-11 22:50] VITALS: BP 154/85; PULSE 78; TEMP 37.2; O2SAT 95
[2017-07-11 23:45] VITALS: O2SAT 95
[2017-07-12] VITALS (9 sets, daily range): BP systolic 145–189; BP diastolic 70–92; PULSE 69–81; TEMP 36.8–38; O2SAT 96–100; Ht 182.9 cm; Wt 110.5 kg
[2017-07-12] MEDS: MoRPHine SULFATE 4 MG/ML 1 ML CARP\\VIAL IV PRN ×3 (01:41→18:40)
[2017-07-12 07:49] LABS: HEMATOCRIT 42.3 % (42-52); HEMOGLOBIN 14.3 g/dL (14.0-18.0); MEAN CELL VOLUME 93.2 fL (80-100); MEAN CORPUSCULAR HEMOGLOBIN 31.5 pg (25-34); MEAN CORPUSCULAR HGB CONC 33.8 g/dl (32-36); MEAN PLATELET VOLUME 10.6 fL (7.4-10.4); PLATELET COUNT 186 K/uL (130-400); RED CELL DISTRIBUTION WIDTH CV 13.4 % (11.5-14.5); RED CELL DISTRIBUTION WIDTH SD 45.9 fL (36.4-46.3); WHITE BLOOD COUNT 8.79 K/uL (4.8-10.8)
[2017-07-12 08:19] LABS: CALCIUM 8.7 mg/dl (8.5-10.1); CREATININE 1.04 mg/dl (0.60-1.40); POTASSIUM 3.6 mmol/L (3.5-5.1)
[2017-07-12] MEDS ORDERED: COENZYME Q10 PO SCH (09:00)
[2017-07-12] MEDS: PSYLLIUM 58.6% PWD PACK S\\F PO SCH (09:00)
[2017-07-12] MEDS ORDERED: FISH OIL PO SCH (09:00)
[2017-07-12] MEDS ORDERED: [UNRECOGNIZED DRUG - OTHER] PO SCH (09:00)
[2017-07-12] MEDS: PANTOprazole SOD 40 MG TAB PO SCH (09:03)
[2017-07-12] MEDS: TELMISARTAN 40 MG TAB PO SCH (09:04)
[2017-07-12] MEDS: MULTIVITAMIN TAB PO SCH (09:04)
[2017-07-12] MEDS ORDERED: MIDAZOLAM HCL 1 MG/ML 2ML VIAL ONE (10:33)
[2017-07-12] MEDS ORDERED: FENTANYL CITRATE INJ 50 MCG/1 ML 2 ML VIAL ONE (10:33)
[2017-07-12] MEDS ORDERED: EpHEDrine SULFATE INJ 50 MG/ML AMP IV PRN (10:45)
[2017-07-12] MEDS ORDERED: HYDROmorphone INJ 1 MG/ML SYR IV PRN (10:45)
[2017-07-12] MEDS ORDERED: FENTANYL CITRATE INJ 50 MCG/1 ML 2 ML VIAL IV PRN (10:45)
[2017-07-12] MEDS ORDERED: LABETALOL HCL IV 5 MG/ML 20ML IV PRN (10:45)
[2017-07-12] MEDS ORDERED: MEPERIDINE HCL 25 MG/ML CARP IV PRN (10:45)
[2017-07-12] MEDS ORDERED: ONDANSETRON INJ 2 MG/ML 2 ML VIAL IV PRN (10:45)
[2017-07-12] MEDS ORDERED: ATROPINE SULFATE 0.1 MG/ML 5ML SYR IV PRN (10:45)
--- NOTE | 2017-07-12 11:41 | Progress Note ---
Subjective Date of Service: Jul 12, 2017. Subjective Pt evaluation today including: conversation w/ patient, conversation w/ family , physical exam, chart review, lab review, review of studies, conversation w/ integrity consultant, review of inpatient medication list Voiding: no voiding problems Patient is seen and examined by me. Pt states his pain is some what under controlled but if he move left leg on hip it really painful.Pt is waiting for surgery. pt is slightly anxious. Problem List Medical Problems: (1) Fall Status: Acute (2) GI bleed Status: Acute (3) Hip fracture, left Status: Acute Review of Systems Musculoskeletal: + problem reported (left hip pain) All Other Systems: Reviewed and Negative Objective Vital Signs Date Time Temp Pulse Resp B/P (MAP) Pulse Ox O2 Delivery O2 Flow Rate FiO2 07/12/17 07:05 36.9 76 16 173/90 (117) 97 Room Air 07/11/17 23:45 95 Room Air 07/11/17 22:50 37.2 78 18 154/85 (108) 95 Room Air 07/11/17 15:30 36.7 78 16 164/83 (110) 95 Room Air 07/11/17 15:30 Room Air 07/11/17 14:29 37.2 84 16 155/80 97 Room Air 07/11/17 14:00 76 20 157/101 99 Room Air 07/11/17 13:00 84 20 159/88 99 Room Air 07/11/17 12:49 85 20 193/106 99 Room Air 07/11/17 12:21 81 07/11/17 12:10 79 20 179/84 99 Room Air 07/11/17 11:34 36.7 80 20 186/87 100 Room Air Physical Exam General Appearance: no apparent distress Cardiovascular: regular rate, rhythm, no edema, no murmur Abdomen: normal bowel sounds, soft Extremities: + pertinent finding (left hip pain of adduction or moving or rotating leg on hip) Neurologic/Psychiatric: alert, normal mood/affect, oriented x 3 Skin: no rash Lymphatic: no adenopathy Laboratory Results Last 24 Hours Test 07/12/17 07:26 White Blood Count 8.79 K/uL Red Blood Count 4.54 M/uL Hemoglobin 14.3 g/dL Hematocrit 42.3 % Mean Corpuscular Volume 93.2 fL Mean Corpuscular Hemoglobin 31.5 pg Mean Corpuscular Hemoglobin Concent 33.8 g/dl RDW Standard Deviation 45.9 fL RDW Coefficient of Variation 13.4 % Platelet Count 186 K/uL Mean Platelet Volume 10.6 fL Sodium Level 139 mmol/L Potassium Level 3.6 mmol/L Chloride Level 102 mmol/L Carbon Dioxide Level 26 mmol/L Anion Gap 10.0 mmol/L Blood Urea Nitrogen 21 mg/dl Creatinine 1.04 mg/dl Est Creatinine Clear Calc Drug Dose 73.9 ml/min Estimated GFR () 78.8 Estimated GFR (Non- 68.0 BUN/Creatinine Ratio 19.8 Random Glucose 123 mg/dl Calcium Level 8.7 mg/dl Assessment and Plan intertrochanteric left femoral fracture S/P mechanical fall npo for surgery ortho on case Uncontrolled HTN secondary to possible pain and being anxious BP is elevated 170s systolic. Continue beta elizabeth and ARB. Will hold diuretic as patient may be going to surgery today. H/O Maltoma Stable. ay consider outpatient radiation, On PPI H/O gastritis on PPI. controlled DVT will hold heparin as patient may go to surgery soon. SCD Continued [facility] stay due to: multiple IV medications needed, home environment unsafe for pt, other (wating for surgery) Discharge planning: rehab hospital
[2017-07-12] MEDS ORDERED: LIDOCAINE HCL 1% 20 ML VIAL ONE (12:00)
[2017-07-12] MEDS ORDERED: BUPIVACAINE 0.5 % 5 MG/1 ML MPF 30ML VIAL ONE (12:00)
--- NOTE | 2017-07-12 12:59 | History & Physical Bridge Note ---
H&P Re-Evaluation Bridge Note: I have examined the patient, reviewed the History & Physical and in the interval since the performance of the History & Physical I have noted the following changes of clinical significance: No changes noted
[2017-07-12] MEDS ORDERED: KETAMINE HCL INJ 50 MG/ML 10 ML VIAL ONE (13:04)
[2017-07-12] MEDS ORDERED: LIDOCAINE HCL 2% 2 ML VIAL (20MG/ML) ONE (13:30)
[2017-07-12] MEDS ORDERED: PROPOFOL IV EMULSION 10 MG/ML 20 ML VIAL IV ONE (13:30)
[2017-07-12] MEDS ORDERED: CEFAZOLIN SOD 1 GM VIAL ONE (13:30)
[2017-07-12] MEDS ORDERED: BUPIVACAINE 0.5 % 5 MG/1 ML PF 10ML VIAL ONE (13:36)
--- NOTE | 2017-07-12 14:33 | [facility] Operative Report ---
Operative Report Operative Date Jul 12, 2017. Pre-Operative Diagnosis Left Intertrochanteric Hip Fracture Post-Operative Diagnosis Same Procedure(s) Performed Intramedullary nailing of left intertrochanteric hip fracture (26321) Surgeon Dr. Edmonds [employer] Batch Mixer Surgeon(s) Wisam Anand PA-C Estimated Blood Loss 50 mL Findings See below Fluids 1000 mL Specimens None per surgeon Drains None Anesthesia Spinal, MAC Complication(s) None Disposition Recovery Room / PACU Indications 77-year-old female who injured his left hip after ground-level fall when he slipped on some ice. X-rays showed a intertrochanteric hip fracture. Surgical intervention was recommended for optimal future function. Description of Procedure Implants used: Synthes [id number] 130 short Trochanteric Fixation Nail with an [id number] helical blade and a 5x44mm distal locking screw Mr. Andersen was identified in the preoperative holding area. Operative extremity was marked. He was then brought back to the operating room and placed supine on the operating room table. MAC and spinal anesthesia was induced without complication. 2 g of Ancef were infused intravenously for antibiotic prophylaxis. He was then positioned on the fracture table with the left leg in longitudinal traction and the right leg up in the well leg che. All bony prominences were well-padded. Traction was then applied to the left hip, and reduction maneuvers were performed under fluoroscopic imaging. Once acceptable reduction was achieved, we then prepped and draped the left hip in standard sterile fashion using chlorhexidine prep. I localized the tip of the greater trochanter under fluoroscopic imaging. Incision was made proximal to this. I carried the incision through subcutaneous tissue down to the deep fascia, which was incised in line with its fibers. Greater trochanter was palpated. Entry guidewire was placed at the tip of the greater trochanter in proper position as visualized under fluoroscopic imaging. The guidewire was then advanced into the greater trochanter, and the entry reamer was passed over this wire. I then selected a Synthes [id number] short Trochanteric Fixation Nail for fixation. This was inserted into the reamed hole in the greater trochanter and impacted down into proper position. I then advanced a guidewire up into the femoral neck and head into proper center-center position under fluoroscopic imaging. We then measured for the helical blade, and selected a 110mm length helical blade. The helical blade drill was then set to appropriate depth and drilled over the guidewire. Helical blade was then impacted into place. I then compressed the fracture site with the compression ring on the targeting arm. Finally I attached the targeting guide for the distal locking screw. This was drilled and measured at 44mm. Final fluoroscopic imaging was taken to ensure proper hardware position, screw length , and fracture reduction. I was satisfied with all these things. Wounds were copiously irrigated with sterile saline. Deep fascia was closed with #1 Vicryl suture, subcutaneous tissues closed with 2-0 Vicryl, and skin was closed with melba. Wound bed was then anesthetized with a 50-50 mixture of 1% lidocaine and 0.5% Marcaine without epinephrine. Sterile dressings were then applied with Xeroform, sterile gauze, and Tegaderm. Drapes were then removed, patient was awakened from MAC anesthesia, transferred to the stretcher, and taken to the post anesthesia care unit in stable condition. There were no immediate complications from procedure. I was present and scrubbed for the entire procedure. I attest to the content of the Intraoperative Record and any orders documented therein. Any exceptions are noted below.
--- NOTE | 2017-07-12 14:37 | DIAGNOSTIC IMAGING REPORT ---
L HIP OR FILMS HISTORY: 77 years-old Male LEFT HIP left hip ORIF COMPARISON: Pelvis radiographs 07/11/2017 TECHNIQUE: 5 spot fluoroscopic images of the left hip were obtained utilizing 53.9 seconds fluoroscopy time FINDINGS: Status post placement of an intertrochanteric nail with intramedullary alberto fixating the previously noted mildly displaced acute intertrochanteric fracture. Single cannulated screw is seen at the level of the proximal femoral shaft traversing the medullary alberto. Alignment is satisfactory. Moderate to severe degenerative changes of the left hip. Surgical clips are noted along with postoperative swelling and deep tissue air. IMPRESSION: Status post placement of an intratrochanteric nail and medullary alberto fixating an acute intertrochanteric fracture. Alignment is satisfactory. The above report was generated using voice recognition software. It may contain grammatical, syntax or spelling errors. Electronically signed by: Reno Waters M.D. 07/12/2017 2:36 PM Dictated Date/Time: 07/12/2017 2:33 PM
[2017-07-12] MEDS ORDERED: CEFAZOLIN IV 2,000 MG in DEXTROSE 5% 50ML 50 ML IV SCH (14:45)
--- NOTE | 2017-07-12 15:09 | DIAGNOSTIC IMAGING REPORT ---
L HIP UNILATERAL 2 VIEWS HISTORY: 77 years-old Male Postop postoperative exam. Status post placement of a left intertrochanteric nail. COMPARISON: Fluoroscopic images of the left hip of same day at 1:28 PM, pelvis radiographs 07/11/2017 TECHNIQUE: 2 radiographic images of the left hip FINDINGS: Postoperative changes compatible with placement of an intratrochanteric nail with medullary alberto are noted fixating an acute intertrochanteric fracture. Single cannulated screw fixates the medullary alberto within the proximal femoral diaphysis. 9 mm lateral displacement of the proximal metadiaphysis is noted in relation to the femoral neck. Alignment is improved from prior study. Moderate to severe degenerative changes about the left hip. Expected postsurgical soft tissue swelling and deep tissue air. Skin melba are noted. IMPRESSION: Improved alignment of the acute intertrochanteric fracture status post placement of an intratrochanteric nail with medullary alberto. The above report was generated using voice recognition software. It may contain grammatical, syntax or spelling errors. Electronically signed by: Reno Waters M.D. 07/12/2017 3:08 PM Dictated Date/Time: 07/12/2017 3:06 PM
--- NOTE | 2017-07-12 15:38 | Anesthesiology Progress Note ---
Anesthesia Post Op Note Date & Time Jul 12, 2017 at 15:37 Vital Signs Pain Intensity: 0.0 Vital Signs Past 12 Hours Date Time Temp Pulse Resp B/P (MAP) Pulse Ox O2 Delivery O2 Flow Rate FiO2 07/12/17 15:25 Nasal Cannula 2.0 07/12/17 15:25 36.8 76 18 145/77 (99) 97 Nasal Cannula 2.0 07/12/17 15:05 66 16 130/71 99 Nasal Cannula 2 07/12/17 14:55 67 16 139/71 99 Nasal Cannula 2 07/12/17 14:45 65 16 134/70 100 Nasal Cannula 2 07/12/17 14:35 65 16 138/64 100 Oxymask 10 07/12/17 14:25 67 16 137/71 100 Oxymask 10 07/12/17 14:15 36.7 82 16 129/70 95 Oxymask 10 07/12/17 07:45 Room Air 07/12/17 07:05 36.9 76 16 173/90 (117) 97 Room Air Notes Mental Status: alert / awake / arousable, participated in evaluation Pt Amnestic to Procedure: Yes Nausea / Vomiting: adequately controlled Pain: adequately controlled Airway Patency, RR, SpO2: stable & adequate BP & HR: stable & adequate Hydration State: stable & adequate Anesthetic Complications: no major complications apparent
[2017-07-12] MEDS: ACETAMINOPHEN 325 MG TAB PO PRN (16:07)
[2017-07-12] MEDS ORDERED: AMLODIPINE BESYLATE 5 MG TAB PO ONE (21:45)
--- NOTE | 2017-07-12 21:48 | Progress Note ---
Progress Note Date of Service Jul 12, 2017. Progress Note Patient is asymptomatic except for pain in his affected hip. BP is elevated at above 170 systolic. It appears patient may be subtherapeutic in regards to his hypertension, however, this may also be related to his pain from his fracture. Will give a one time dose of amlodipine 5 mg Po now. Will defer to day team, if patient will continue with 5 mg PO for evening doses.
[2017-07-12] MEDS: CEFAZOLIN IV 2,000 MG in SYRINGE 0 ML IV SCH (22:20)
[2017-07-13] VITALS (13 sets, daily range): BP systolic 151–189; BP diastolic 74–93; PULSE 77–84; TEMP 36.6–37.8; O2SAT 94–97
[2017-07-13] MEDS: CEFAZOLIN IV 2,000 MG in SYRINGE 0 ML IV SCH (06:12)
[2017-07-13] MEDS: ONDANSETRON INJ 2 MG/ML 2 ML VIAL IV PRN (06:52)
--- NOTE | 2017-07-13 07:37 | Orthopedic Progress Note ---
Orthopedic Progress Note Date of Service Jul 13, 2017. Subjective Post OP Day: 1 Reports: feeling well, complaints (having hip pain off and on), Denies: chest pain, SOB, nausea / vomiting, light headedness, calf pain Objective calves soft nontender, N/V intact, A&O x3, toes mobile dressings saturated with drainage. thigh swollen but not tense. Date Time Temp Pulse Resp B/P (MAP) Pulse Ox O2 Delivery O2 Flow Rate FiO2 07/13/17 07:06 37.1 84 18 172/84 (113) 97 Room Air 07/13/17 02:34 37.4 81 16 189/91 (123) 97 Nasal Cannula 1.5 07/13/17 01:08 178/93 (121) 07/13/17 01:07 186/81 (116) 07/13/17 00:45 96 Nasal Cannula 07/12/17 22:57 37.4 81 16 189/81 (117) 96 Nasal Cannula 1.5 07/12/17 21:30 177/88 (117) 07/12/17 18:41 37.5 07/12/17 18:28 38.0 76 18 177/92 (120) 98 Nasal Cannula 2.0 07/12/17 17:25 36.9 72 18 161/70 (100) 98 Nasal Cannula 07/12/17 16:24 36.9 69 18 163/77 (105) 99 Nasal Cannula 2.0 07/12/17 15:55 37.4 69 18 159/82 (107) 100 Nasal Cannula 2.0 07/12/17 15:25 Nasal Cannula 2.0 07/12/17 15:25 Nasal Cannula 2.0 07/12/17 15:25 36.8 76 18 145/77 (99) 97 Nasal Cannula 2.0 07/12/17 15:05 66 16 130/71 99 Nasal Cannula 2 07/12/17 14:55 67 16 139/71 99 Nasal Cannula 2 07/12/17 14:45 65 16 134/70 100 Nasal Cannula 2 07/12/17 14:35 65 16 138/64 100 Oxymask 10 07/12/17 14:25 67 16 137/71 100 Oxymask 10 07/12/17 14:15 36.7 82 16 129/70 95 Oxymask 10 1/21/18 07:45 Room Air Assessment & Plan Assessment: POD 1 s/p Left TFN Plan: PT/OT Will likely need rehab vs snf (1) Intertrochanteric fracture of left femur Inhouse Planning Pain Management: Morphine, PO Tylenol DVT Prophylaxis: TEDs, SCDs, Xarelto Discharge Planning Discharge Planning: uncertain
[2017-07-13] MEDS: PSYLLIUM 58.6% PWD PACK S\\F PO SCH (08:17)
[2017-07-13] MEDS: OXYCODONE HCL IR 5 MG TAB (IMMEDIATE RELEASE) PO PRN ×2 (08:22→13:09)
[2017-07-13] MEDS: MULTIVITAMIN TAB PO SCH (08:23)
[2017-07-13] MEDS: PANTOprazole SOD 40 MG TAB PO SCH (08:23)
[2017-07-13] MEDS: TELMISARTAN 40 MG TAB PO SCH (08:24)
[2017-07-13] MEDS ORDERED: RIVAROXABAN 10 MG TAB PO SCH (09:00)
--- NOTE | 2017-07-13 17:23 | Progress Note ---
Subjective Date of Service: Jul 13, 2017. Subjective Pt evaluation today including: conversation w/ patient, conversation w/ family , physical exam, chart review, lab review, review of inpatient medication list Problem List Medical Problems: (1) Fall Status: Acute (2) GI bleed Status: Acute (3) Hip fracture, left Status: Acute Review of Systems Constitutional: No see HPI, No fever, No chills, No sweats, No weight loss, No weakness, No fatigue, No problem reported Eyes: No see HPI, No worsening of vision, No eye pain, No redness, No discharge , No diplopia, No problem reported ENT: No see HPI, No hearing loss, No unusual epistaxis, No nasal symptoms, No sore throat, No tinnitus, No dental problems, No trouble swallowing, No problem reported Respiratory: No see HPI, No cough, No sputum, No wheezing, No shortness of breath, No dyspnea on exertion, No dyspnea at rest, No hemoptysis, No problem reported Cardiac: No see HPI, No chest pain, No orthopnea, No PND, No edema, No claudication, No palpitations, No problem reported Breast: No see HPI, No breast lump, No change in shape, No nipple discharge, No breast pain, No problem reported Abdomen: No see HPI, No pain, No nausea, No vomiting, No diarrhea, No constipation, No GI bleeding, No problem reported Musculoskeletal: No see HPI, No joint pain, No muscle pain, No swelling, No calf pain, No problem reported Male : No see HPI, No dysuria, No urinary frequency, No incontinence, No nocturia more than once/night, No slowing stream, No hematuria, No sexual dysfunction, No problem reported Neurologic: No see HPI, No memory loss, No paralysis, No weakness, No numbness/ tingling, No vertigo, No balance problems, No problem reported Psychiatric: No see HPI, No depression symptoms, No anhedonism, No anxiety, No insomnia, No substance abuse, No problem reported Heme: No see HPI, No abnormal bleeding/bruising, No clotting problems, No swollen lymph nodes, No night sweats, No problem reported Endo: No see HPI, No fatigue, No excessive thirst, No excessive urination, No problem reported Skin: No see HPI, No rash, No itch, No new/changing skin lesions, No color change, No bleeding, No problem reported Objective Vital Signs Date Time Temp Pulse Resp B/P (MAP) Pulse Ox O2 Delivery O2 Flow Rate FiO2 07/13/17 15:35 Room Air 07/13/17 15:28 37.8 81 18 162/81 (108) 97 Nasal Cannula 1.0 07/13/17 12:31 36.6 82 16 175/82 (113) 94 Room Air 151/78 (102) 07/13/17 10:07 152/84 (106) 07/13/17 07:31 Room Air 07/13/17 07:06 37.1 84 18 172/84 (113) 97 Room Air 07/13/17 02:34 37.4 81 16 189/91 (123) 97 Nasal Cannula 1.5 07/13/17 01:08 178/93 (121) 07/13/17 01:07 186/81 (116) 07/13/17 00:45 96 Nasal Cannula 07/12/17 22:57 37.4 81 16 189/81 (117) 96 Nasal Cannula 1.5 07/12/17 21:30 177/88 (117) 07/12/17 18:41 37.5 07/12/17 18:28 38.0 76 18 177/92 (120) 98 Nasal Cannula 2.0 07/12/17 17:25 36.9 72 18 161/70 (100) 98 Nasal Cannula Physical Exam General Appearance: WD/WN, no apparent distress Eyes: normal inspection, EOMI ENT: normal ENT inspection, hearing grossly normal Neck: supple Respiratory/Chest: chest non-tender, lungs clear, normal breath sounds, no respiratory distress, no accessory muscle use Cardiovascular: regular rate, rhythm, no edema, no gallop, no JVD, no murmur Abdomen: normal bowel sounds, non tender, soft, no organomegaly, no pulsatile mass Extremities: normal range of motion, non-tender, normal inspection, no pedal edema Neurologic/Psychiatric: etl architect II-XII nml as tested, no motor/sensory deficits, alert, normal mood/affect, oriented x 3 Skin: normal color, warm/dry, no rash Assessment and Plan 78 years old man status post mechanical fall and intertrochanteric left femoral fracture Assessment Intertrochanteric left femoral fracture Status post mechanical fall Uncontrolled hypertension Obesity H/O gastritis H/O Maltoma Plan Postoperative day #1 status post Intramedullary nailing of left intertrochanteric hip fracture Despite of elevated blood pressure patient is symptomatic, explained to the patient that we will bring the pressure down slowly Keep holding diuretics for one more day Continue PPI DVT with Xarelto as per primary team. Also on SCD Continued [facility] stay due to: multiple IV medications needed, home environment unsafe for pt, other (wating for surgery) Discharge planning: rehab hospital Continued [facility] stay due to: multiple IV medications needed, home environment unsafe for pt, other (wating for surgery) Discharge planning: rehab hospital
[2017-07-13] MEDS: CHOLECALCIFEROL 1000 INTER.UNIT TAB PO SCH (20:56)
[2017-07-13] MEDS: BOOST VANILLA PO SCH (20:56)
[2017-07-13] MEDS: ACETAMINOPHEN 325 MG TAB PO PRN (20:57)
[2017-07-13] MEDS ORDERED: NURSING VERBAL MED ORDER ONE (22:00)
--- NOTE | 2017-07-13 23:31 | Progress Note ---
Progress Note Date of Service Jul 13, 2017. Progress Note new onset hematuria with clots irrigation prn q2h for occlusion of joseph, consult urology, hold am Xarelto until reassessment in am
[2017-07-14] LABS: HEMATOCRIT 37.6 % (42-52); HEMOGLOBIN 12.7 g/dL (14.0-18.0)
[2017-07-14] MEDS: OXYCODONE HCL IR 5 MG TAB (IMMEDIATE RELEASE) PO PRN ×2 (05:13→14:27)
[2017-07-14 07:36] VITALS: BP 157/77; PULSE 76; TEMP 37.2; O2SAT 95
[2017-07-14] MEDS: TELMISARTAN 40 MG TAB PO SCH (08:38)
[2017-07-14] MEDS: CHOLECALCIFEROL 1000 INTER.UNIT TAB PO SCH ×2 (08:38→21:22)
[2017-07-14] MEDS: MULTIVITAMIN TAB PO SCH (08:38)
[2017-07-14] MEDS: PANTOprazole SOD 40 MG TAB PO SCH (08:38)
[2017-07-14] MEDS: PSYLLIUM 58.6% PWD PACK S\\F PO SCH (08:38)
[2017-07-14] MEDS: BOOST VANILLA PO SCH ×2 (08:41→21:00)
[2017-07-14 09:10] LABS: BASO % 0.2 %; BASO ABS # 0.02 K/uL (0-0.2); EOS % 0.4 %; EOS ABS # 0.04 K/uL (0-0.5); HEMATOCRIT 39.7 % (42-52); HEMOGLOBIN 13.5 g/dL (14.0-18.0); IG# 0.05 K/uL (0.00-0.02); LYMPH % 13.2 %; LYMPH ABS # 1.45 K/uL (1.2-3.4); MEAN CELL VOLUME 92.5 fL (80-100); MEAN CORPUSCULAR HEMOGLOBIN 31.5 pg (25-34); MEAN PLATELET VOLUME 10.5 fL (7.4-10.4); MONO % 13.4 %; MONO ABS # 1.47 K/uL (0.11-0.59); NEUT % 72.3 %; NEUT ABS # 7.92 K/uL (1.4-6.5); PLATELET COUNT 189 K/uL (130-400); RED CELL DISTRIBUTION WIDTH CV 13.4 % (11.5-14.5); RED CELL DISTRIBUTION WIDTH SD 44.6 fL (36.4-46.3); WHITE BLOOD COUNT 10.95 K/uL (4.8-10.8)
[2017-07-14 10:33] LABS: ALBUMIN 2.9 gm/dl (3.4-5.0); CALCIUM 8.8 mg/dl (8.5-10.1); CREATININE 1.02 mg/dl (0.60-1.40); TOTAL PROTEIN 6.8 gm/dl (6.4-8.2)
--- NOTE | 2017-07-14 14:34 | Orthopedic Progress Note ---
Orthopedic Progress Note Date of Service Jul 14, 2017. Subjective Post OP Day: 2 Reports: feeling well, Denies: complaints Additional Notes: Pt states he was up with PT today. Doing a little better each day. Xarelto was stopped when it was noted that he had hematuria . Urine in catheter is yellow currently. Objective calves soft nontender, N/V intact, dressing C/D/I, A&O x3, toes mobile thigh swollen Date Time Temp Pulse Resp B/P (MAP) Pulse Ox O2 Delivery O2 Flow Rate FiO2 07/14/17 07:36 37.2 76 16 157/77 (103) 95 Room Air 07/14/17 07:35 Room Air 07/13/17 23:50 94 Room Air 07/13/17 23:09 37.5 80 18 171/77 (108) 94 Room Air 07/13/17 21:06 37.8 77 18 156/74 (101) 96 Room Air 07/13/17 20:56 37.7 07/13/17 19:00 36.8 07/13/17 15:35 Room Air 07/13/17 15:28 37.8 81 18 162/81 (108) 97 Nasal Cannula 1.0 Laboratory Results 24 Hours: Test 07/13/17 23:44 07/14/17 08:35 Hematocrit 37.6 % 39.7 % Hemoglobin 12.7 g/dL 13.5 g/dL White Blood Count 10.95 K/uL Red Blood Count 4.29 M/uL Mean Corpuscular Volume 92.5 fL Mean Corpuscular Hemoglobin 31.5 pg Mean Corpuscular Hemoglobin Concent 34.0 g/dl Platelet Count 189 K/uL Mean Platelet Volume 10.5 fL Neutrophils (%) (Auto) 72.3 % Lymphocytes (%) (Auto) 13.2 % Monocytes (%) (Auto) 13.4 % Eosinophils (%) (Auto) 0.4 % Basophils (%) (Auto) 0.2 % Neutrophils # (Auto) 7.92 K/uL Lymphocytes # (Auto) 1.45 K/uL Monocytes # (Auto) 1.47 K/uL Eosinophils # (Auto) 0.04 K/uL Basophils # (Auto) 0.02 K/uL Assessment & Plan Assessment: POD 2 s/p Left TFN Plan: Waiting for Urology input. If ok with Urology, plan to start ASA 81 bid or Lovenox daily PT/OT Will likely need rehab vs snf (1) Intertrochanteric fracture of left femur Inhouse Planning Pain Management: Morphine, PO Tylenol DVT Prophylaxis: TEDs, SCDs, Xarelto Discharge Planning Discharge Planning: uncertain
[2017-07-14 15:53] VITALS: BP 155/76; PULSE 82; TEMP 37.5; O2SAT 95
--- NOTE | 2017-07-14 16:31 | Discharge Instructions ---
Discharge Instructions Date of Service Jul 14, 2017. Admission Reason for Admission: Intertrochanteric Fracture Of Left Femur Discharge Discharge Diagnosis / Problem: SP LEFT TFN Discharge Goals Goal(s): Decrease discomfort, Improve function, Increase independence Activity Recommendations Activity Limitations: per Instructions/Follow-up section . Instructions / Follow-Up Instructions / Follow-Up [facility] DISCHARGE INSTRUCTIONS: HIP FRACTURE SELF CARE INSTRUCTIONS: A. You are to ambulate with a walker or crutches for approximately 6 weeks. B. You are TOE TOUCH WEIGHT BEARING on your operative lower extremity for at least 6 weeks. C. Wear low heeled shoes with non-slip soles D. Be sure that your floors are free of things that could trip you throw rugs, electrical cords, and small objects. Avoid wet and waxed floors, especially with crutches/walker/cane. E. Try to walk several times a day with rest periods between. F. You may shower 48 hours after surgery and get the incision area wet, but DO NOT soak or submerge incision area in water. (No baths, swimming pools, hot tubs ) G. You may have a large, band-aid like dressing over your incision (Aquacel). This will remain on your incision for 7 days, and then can be removed. You CAN shower with this on. If incision is leaking through the dressing, please call the office . H. Do NOT apply soap or any ointment/lotions directly over incision. I. You may use ice as needed to operative site. SPECIAL CARE INSTRUCTIONS: VERY IMPORTANT TO READ AND REVIEW A. You may be at risk for phlebitis or blood clots. a. Wear surgical stockings (SOFY hose) for 2 weeks after surgery to improve circulation and reduce swelling. b. Take XARELTO for 4 weeks or as directed. This is your blood thinner. ONLY RESUME WHEN CLEARED BY UROLOGY c. If you are on Coumadin- you will have daily/weekly blood work to monitor your levels. This will be done by either your family physician/ wax molder (if you are on Coumadin chronically) versus your orthopedic surgeon. Expect a phone call the day of or the day after your blood work is drawn to adjust your dose accordingly. B. There are a few signs you need to watch for after you are home. Call [facility] at [phone] if you experience any of the following: a. If you have a temperature of 101 degrees or higher. b. Sudden increase in pain in your hip not relieved by rest or pain medication. c. Any fluid or drainage from the incision; redness of the incision. d. Shortness of breath or chest pain. B. Please call [facility] at [phone] if you have any questions or concerns about your operation or recovery. C. Call your physician if: a. Temperature is greater than 101 degrees (F). b. Pain is not relieved by prescribed pain medications. c. Increase drainage or redness from incision. d. Unanswered questions or concerns. D. Pain Medication: a. You will be prescribed pain medication upon discharge that should last till your first post-operative appointment. b. If you experience nausea and/or skin rash, discontinue this medication and contact our office for an alternative medication. c. Caution- narcotic pain medication can cause constipation. FOLLOW UP VISIT: Please call [facility] at [phone] to schedule a follow up appointment 10-14 days from the date of your surgery date. Current Hospital Diet Patient's current hospital diet: Regular Diet Discharge Diet Recommended Diet: Regular Diet Procedures Procedures Performed: Left Intramedullary Neil Femur Pending Studies Studies pending at discharge: no Medical Emergencies . Who to Call and When: Medical Emergencies: If at any time you feel your situation is an emergency, please call 911 immediately. . Non-Emergent Contact Non-Emergency issues call your: Surgeon . "Provider Documentation" section prepared by Elana Houser. . VTE Core Measure Inpt VTE Proph given/why not?: Other Anticoagulation, SCD's
--- NOTE | 2017-07-14 17:34 | Progress Note ---
Subjective Date of Service: Jul 14, 2017. Subjective Pt evaluation today including: conversation w/ patient, conversation w/ family , physical exam, chart review, lab review, review of inpatient medication list Pain: controlled Voiding: no voiding problems, no incontinence stepped on his catheter and had a minor episode of hematuria that cleared quickly Problem List Medical Problems: (1) Fall Status: Acute (2) GI bleed Status: Acute (3) Hip fracture, left Status: Acute Review of Systems Constitutional: No see HPI, No fever, No chills, No sweats, No weight loss, No weakness, No fatigue, No problem reported Eyes: No see HPI, No worsening of vision, No eye pain, No redness, No discharge , No diplopia, No problem reported ENT: No see HPI, No hearing loss, No unusual epistaxis, No nasal symptoms, No sore throat, No tinnitus, No dental problems, No trouble swallowing, No problem reported Respiratory: No see HPI, No cough, No sputum, No wheezing, No shortness of breath, No dyspnea on exertion, No dyspnea at rest, No hemoptysis, No problem reported Cardiac: No see HPI, No chest pain, No orthopnea, No PND, No edema, No claudication, No palpitations, No problem reported Breast: No see HPI, No breast lump, No change in shape, No nipple discharge, No breast pain, No problem reported Abdomen: No see HPI, No pain, No nausea, No vomiting, No diarrhea, No constipation, No GI bleeding, No problem reported Musculoskeletal: No see HPI, No joint pain, No muscle pain, No swelling, No calf pain, No problem reported Male : + hematuria, No see HPI, No dysuria, No urinary frequency, No incontinence, No nocturia more than once/night, No slowing stream, No sexual dysfunction, No problem reported Neurologic: No see HPI, No memory loss, No paralysis, No weakness, No numbness/ tingling, No vertigo, No balance problems, No problem reported Psychiatric: No see HPI, No depression symptoms, No anhedonism, No anxiety, No insomnia, No substance abuse, No problem reported Heme: No see HPI, No abnormal bleeding/bruising, No clotting problems, No swollen lymph nodes, No night sweats, No problem reported Endo: No see HPI, No fatigue, No excessive thirst, No excessive urination, No problem reported Skin: No see HPI, No rash, No itch, No new/changing skin lesions, No color change, No bleeding, No problem reported Medications Current Inpatient Medications Medications (Trade) Dose Ordered Sig/Shawn Route Start Time Stop Time Status Last Admin Dose Admin Acetaminophen (Tylenol Tab) 650 mg Q4H PRN PO 07/11/17 12:45 08/10/17 12:44 07/13/17 20:57 650 MG Al Hydrox/Mg Hydrox/Simethicone (Maalox Max Susp) 15 ml Q4H PRN PO 07/11/17 12:45 08/10/17 12:44 Magnesium Hydroxide (Milk Of Magnesia Susp) 30 ml Q6H PRN PO 07/11/17 12:45 08/10/17 12:44 Ondansetron HCl (Zofran Inj) 4 mg Q6H PRN IV 07/11/17 12:45 08/10/17 12:44 07/13/17 06:52 4 MG Atenolol (Tenormin Tab) 25 mg DAILY PO 07/12/17 09:00 08/11/17 08:59 07/14/17 08:38 25 MG Multivitamins (Multivitamin Tab) 1 tab DAILY PO 07/12/17 09:00 08/11/17 08:59 07/14/17 08:38 1 TAB Pantoprazole Sodium (Protonix Tab) 40 mg DAILY PO 07/12/17 09:00 08/11/17 08:59 07/14/17 08:38 40 MG Psyllium Hydrophilic Mucilloid (Metamucil Powder) 1 pkt QAM PO 07/12/17 09:00 08/11/17 08:59 07/14/17 08:38 1 PKT Morphine Sulfate (MoRPHine SULFATE INJ) 4 mg Q4H PRN IV 07/11/17 12:45 07/25/17 12:44 07/12/17 18:40 4 MG Telmisartan (Micardis Tab) 80 mg QAM PO 07/12/17 09:00 08/11/17 08:59 07/14/17 08:38 80 MG Oxycodone HCl (Roxicodone Immediate Rel Tab) `1-2 tabs for pain 1 tab ... Q4HWA PRN PO 07/13/17 07:45 07/27/17 07:44 07/14/17 14:27 10 MG Enteral Nutritional Formula (Boost) 1 can BID PO 07/13/17 21:00 08/12/17 20:59 07/14/17 08:41 1 CAN Cholecalciferol (Vitamin D Tab) 1,000 inter.unit BID PO 07/13/17 21:00 08/12/17 20:59 07/14/17 08:38 1,000 INTER.UNIT Rivaroxaban (Xarelto Tab) 10 mg DAILY PO 07/15/17 09:00 08/14/17 21:00 Objective Vital Signs Date Time Temp Pulse Resp B/P (MAP) Pulse Ox O2 Delivery O2 Flow Rate FiO2 07/14/17 15:53 37.5 82 18 155/76 (102) 95 Room Air 07/14/17 07:36 37.2 76 16 157/77 (103) 95 Room Air 07/14/17 07:35 Room Air 07/13/17 23:50 94 Room Air 07/13/17 23:09 37.5 80 18 171/77 (108) 94 Room Air 07/13/17 21:06 37.8 77 18 156/74 (101) 96 Room Air 07/13/17 20:56 37.7 07/13/17 19:00 36.8 Physical Exam General Appearance: WD/WN, no apparent distress Eyes: normal inspection, EOMI ENT: normal ENT inspection, hearing grossly normal Neck: supple Respiratory/Chest: chest non-tender, lungs clear, normal breath sounds, no respiratory distress, no accessory muscle use Cardiovascular: regular rate, rhythm, no edema, no gallop, no JVD, no murmur Abdomen: normal bowel sounds, non tender, soft, no organomegaly, no pulsatile mass Extremities: normal range of motion, non-tender, normal inspection, no pedal edema, no calf tenderness Neurologic/Psychiatric: cable stretcher and tester II-XII nml as tested, no motor/sensory deficits, alert, normal mood/affect, oriented x 3 Skin: normal color, warm/dry, no rash Laboratory Results Last 24 Hours Test 07/13/17 23:44 07/14/17 08:35 07/14/17 10:34 07/14/17 11:47 Hemoglobin 12.7 g/dL 13.5 g/dL Hematocrit 37.6 % 39.7 % White Blood Count 10.95 K/uL Red Blood Count 4.29 M/uL Mean Corpuscular Volume 92.5 fL Mean Corpuscular Hemoglobin 31.5 pg Mean Corpuscular Hemoglobin Concent 34.0 g/dl Platelet Count 189 K/uL Mean Platelet Volume 10.5 fL Neutrophils (%) (Auto) 72.3 % Lymphocytes (%) (Auto) 13.2 % Monocytes (%) (Auto) 13.4 % Eosinophils (%) (Auto) 0.4 % Basophils (%) (Auto) 0.2 % Neutrophils # (Auto) 7.92 K/uL Lymphocytes # (Auto) 1.45 K/uL Monocytes # (Auto) 1.47 K/uL Eosinophils # (Auto) 0.04 K/uL Basophils # (Auto) 0.02 K/uL RDW Standard Deviation 44.6 fL RDW Coefficient of Variation 13.4 % Immature Granulocyte % (Auto) 0.5 % Immature Granulocyte # (Auto) 0.05 K/uL Sodium Level 135 mmol/L Potassium Level mmol/L mmol/L 4.0 mmol/L Chloride Level 102 mmol/L Carbon Dioxide Level 27 mmol/L Anion Gap 6.0 mmol/L Blood Urea Nitrogen 25 mg/dl Creatinine 1.02 mg/dl Est Creatinine Clear Calc Drug Dose 75.4 ml/min Estimated GFR () 80.6 Estimated GFR (Non- 69.6 BUN/Creatinine Ratio 24.4 Random Glucose 122 mg/dl Calcium Level 8.8 mg/dl Magnesium Level mg/dl mg/dl 2.4 mg/dl Total Bilirubin 1.4 mg/dl Aspartate Amino Transf (AST/SGOT) U/L U/L 28 U/L Alanine Aminotransferase (ALT/SGPT) 25 U/L Alkaline Phosphatase 53 U/L Total Protein 6.8 gm/dl Albumin 2.9 gm/dl Globulin 3.9 gm/dl Albumin/Globulin Ratio 0.7 Assessment and Plan 78 years old man status post mechanical fall and intertrochanteric left femoral fracture Assessment Intertrochanteric left femoral fracture Status post mechanical fall traumatic hematuria, resolved Uncontrolled hypertension Obesity H/O gastritis H/O M[place] Plan Postoperative day #2 status post Intramedullary nailing of left intertrochanteric hip fracture Despite of elevated blood pressure patient is symptomatic, explained to the patient that we will bring the pressure down slowly Start hydrochlorothiazide Continue PPI DVT with Xarelto as per primary team. Also on SCD Hematuria cleared, Xarelto was restarted Continued [facility] stay due to: multiple IV medications needed, home environment unsafe for pt, other (wating for surgery) Discharge planning: rehab hospital Continued [facility] stay due to: multiple IV medications needed, home environment unsafe for pt, other (wating for surgery) Discharge planning: rehab hospital
[2017-07-14] MEDS ORDERED: HYDROCHLOROTHIAZIDE 25 MG TAB PO STA (17:51)
[2017-07-14 22:41] VITALS: BP 160/77; PULSE 80; TEMP 37.4; O2SAT 97
[2017-07-15 06:01] VITALS: TEMP 37.2
[2017-07-15] MEDS: ACETAMINOPHEN 325 MG TAB PO PRN ×2 (06:03→19:38)
[2017-07-15 07:53] VITALS: BP 169/83; PULSE 86; TEMP 37.1; O2SAT 96
--- NOTE | 2017-07-15 08:24 | Orthopedic Progress Note ---
Orthopedic Progress Note Date of Service Jul 15, 2017. Subjective Post OP Day: 3 Reports: feeling well Additional Notes: states he's able to move his LLE a little better each day. no new complaints. Objective calves soft nontender, N/V intact, dressing C/D/I, A&O x3, toes mobile Date Time Temp Pulse Resp B/P (MAP) Pulse Ox O2 Delivery O2 Flow Rate FiO2 07/15/17 07:53 37.1 86 16 169/83 (111) 96 Room Air 07/15/17 06:01 37.2 07/15/17 01:46 Room Air 07/14/17 22:41 37.4 80 16 160/77 (104) 97 Room Air 07/14/17 15:53 37.5 82 18 155/76 (102) 95 Room Air 07/14/17 15:40 Room Air Laboratory Results 24 Hours: Test 07/14/17 08:35 07/15/17 07:42 White Blood Count 10.95 K/uL Red Blood Count 4.29 M/uL Hemoglobin 13.5 g/dL Hematocrit 39.7 % Mean Corpuscular Volume 92.5 fL Mean Corpuscular Hemoglobin 31.5 pg Mean Corpuscular Hemoglobin Concent 34.0 g/dl Platelet Count 189 K/uL Mean Platelet Volume 10.5 fL Neutrophils (%) (Auto) 72.3 % Lymphocytes (%) (Auto) 13.2 % Monocytes (%) (Auto) 13.4 % Eosinophils (%) (Auto) 0.4 % Basophils (%) (Auto) 0.2 % Neutrophils # (Auto) 7.92 K/uL Lymphocytes # (Auto) 1.45 K/uL Monocytes # (Auto) 1.47 K/uL Eosinophils # (Auto) 0.04 K/uL Basophils # (Auto) 0.02 K/uL Assessment & Plan Assessment: POD 3 s/p Left TFN Plan: Xarelto resumed per Med service Planning for [facility] vs [facility] WILL SIGN OFF FOR NOW. PLEASE CALL WITH ANY QUESTIONS. DC RECOMMENDATIONS PLACED IN EMR (1) Intertrochanteric fracture of left femur Inhouse Planning Pain Management: Morphine, PO Tylenol, Oxy IR DVT Prophylaxis: TEDs, SCDs, Xarelto Discharge Planning Discharge Planning: uncertain
[2017-07-15 08:35] LABS: BASO % 0.2 %; BASO ABS # 0.02 K/uL (0-0.2); EOS % 0.9 %; EOS ABS # 0.09 K/uL (0-0.5); HEMATOCRIT 37.7 % (42-52); HEMOGLOBIN 12.9 g/dL (14.0-18.0); IG# 0.06 K/uL (0.00-0.02); LYMPH % 12.9 %; MEAN CELL VOLUME 91.5 fL (80-100); MEAN CORPUSCULAR HEMOGLOBIN 31.3 pg (25-34); MEAN CORPUSCULAR HGB CONC 34.2 g/dl (32-36); MEAN PLATELET VOLUME 10.6 fL (7.4-10.4); MONO % 13.8 %; MONO ABS # 1.39 K/uL (0.11-0.59); NEUT % 71.6 %; NEUT ABS # 7.18 K/uL (1.4-6.5); PLATELET COUNT 235 K/uL (130-400); RED CELL DISTRIBUTION WIDTH CV 13.2 % (11.5-14.5); RED CELL DISTRIBUTION WIDTH SD 43.9 fL (36.4-46.3); WHITE BLOOD COUNT 10.04 K/uL (4.8-10.8)
[2017-07-15] MEDS: BOOST VANILLA PO SCH ×2 (08:59→20:52)
[2017-07-15] MEDS: CHOLECALCIFEROL 1000 INTER.UNIT TAB PO SCH ×2 (09:00→20:53)
[2017-07-15] MEDS: PSYLLIUM 58.6% PWD PACK S\\F PO SCH (09:00)
[2017-07-15] MEDS: MULTIVITAMIN TAB PO SCH (09:00)
[2017-07-15] MEDS: RIVAROXABAN 10 MG TAB PO SCH (09:01)
[2017-07-15] MEDS: PANTOprazole SOD 40 MG TAB PO SCH (09:01)
[2017-07-15] MEDS: TELMISARTAN 40 MG TAB PO SCH (09:02)
[2017-07-15 09:10] LABS: ALBUMIN 2.9 gm/dl (3.4-5.0); CREATININE 0.95 mg/dl (0.60-1.40); POTASSIUM 3.7 mmol/L (3.5-5.1)
[2017-07-15 09:13] LABS: TOTAL PROTEIN 6.7 gm/dl (6.4-8.2)
[2017-07-15] MEDS: ONDANSETRON INJ 2 MG/ML 2 ML VIAL IV PRN (15:04)
[2017-07-15 15:59] VITALS: BP 145/76; PULSE 86; TEMP 37.4; O2SAT 94
--- NOTE | 2017-07-15 18:04 | Progress Note ---
Subjective Date of Service: Jul 15, 2017. Subjective Pt evaluation today including: conversation w/ patient, conversation w/ family , physical exam, chart review, lab review, review of inpatient medication list Voiding: joseph catheter in place Obtain down resting in bed Does not appear to be in distress. Hematuria resolved Problem List Medical Problems: (1) Fall Status: Acute (2) GI bleed Status: Acute (3) Hip fracture, left Status: Acute Review of Systems Constitutional: No see HPI, No fever, No chills, No sweats, No weight loss, No weakness, No fatigue, No problem reported Eyes: No see HPI, No worsening of vision, No eye pain, No redness, No discharge , No diplopia, No problem reported ENT: No see HPI, No hearing loss, No unusual epistaxis, No nasal symptoms, No sore throat, No tinnitus, No dental problems, No trouble swallowing, No problem reported Respiratory: No see HPI, No cough, No sputum, No wheezing, No shortness of breath, No dyspnea on exertion, No dyspnea at rest, No hemoptysis, No problem reported Cardiac: No see HPI, No chest pain, No orthopnea, No PND, No edema, No claudication, No palpitations, No problem reported Breast: No see HPI, No breast lump, No change in shape, No nipple discharge, No breast pain, No problem reported Abdomen: No see HPI, No pain, No nausea, No vomiting, No diarrhea, No constipation, No GI bleeding, No problem reported Musculoskeletal: No see HPI, No joint pain, No muscle pain, No swelling, No calf pain, No problem reported Male : No see HPI, No dysuria, No urinary frequency, No incontinence, No nocturia more than once/night, No slowing stream, No hematuria, No sexual dysfunction, No problem reported Neurologic: No see HPI, No memory loss, No paralysis, No weakness, No numbness/ tingling, No vertigo, No balance problems, No problem reported Psychiatric: No see HPI, No depression symptoms, No anhedonism, No anxiety, No insomnia, No substance abuse, No problem reported Heme: No see HPI, No abnormal bleeding/bruising, No clotting problems, No swollen lymph nodes, No night sweats, No problem reported Endo: No see HPI, No fatigue, No excessive thirst, No excessive urination, No problem reported Skin: No see HPI, No rash, No itch, No new/changing skin lesions, No color change, No bleeding, No problem reported Objective Vital Signs Date Time Temp Pulse Resp B/P (MAP) Pulse Ox O2 Delivery O2 Flow Rate FiO2 07/15/17 15:59 37.4 86 16 145/76 (99) 94 Room Air 07/15/17 15:30 Room Air 07/15/17 07:53 37.1 86 16 169/83 (111) 96 Room Air 07/15/17 07:15 Room Air 07/15/17 06:01 37.2 07/15/17 01:46 Room Air 07/14/17 22:41 37.4 80 16 160/77 (104) 97 Room Air Physical Exam General Appearance: WD/WN, no apparent distress Eyes: normal inspection, EOMI ENT: normal ENT inspection, hearing grossly normal Neck: supple Respiratory/Chest: chest non-tender, lungs clear, normal breath sounds, no respiratory distress, no accessory muscle use Cardiovascular: regular rate, rhythm, no edema, no gallop, no JVD, no murmur Abdomen: normal bowel sounds, non tender, soft, no organomegaly, no pulsatile mass Extremities: normal range of motion, non-tender, normal inspection, no pedal edema Neurologic/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2 % Neutrophils # (Auto) 7.18 K/uL Lymphocytes # (Auto) 1.30 K/uL Monocytes # (Auto) 1.39 K/uL Eosinophils # (Auto) 0.09 K/uL Basophils # (Auto) 0.02 K/uL RDW Standard Deviation 43.9 fL RDW Coefficient of Variation 13.2 % Immature Granulocyte % (Auto) 0.6 % Immature Granulocyte # (Auto) 0.06 K/uL Sodium Level 135 mmol/L Potassium Level 3.7 mmol/L Chloride Level 101 mmol/L Carbon Dioxide Level 23 mmol/L Anion Gap 11.0 mmol/L Blood Urea Nitrogen 21 mg/dl Creatinine 0.95 mg/dl Est Creatinine Clear Calc Drug Dose 80.9 ml/min Estimated GFR () 87.9 Estimated GFR (Non- 75.8 BUN/Creatinine Ratio 21.7 Random Glucose 117 mg/dl Calcium Level 9.0 mg/dl Magnesium Level 2.4 mg/dl Total Bilirubin 1.5 mg/dl Aspartate Amino Transf (AST/SGOT) 31 U/L Alanine Aminotransferase (ALT/SGPT) 27 U/L Alkaline Phosphatase 56 U/L Total Protein 6.7 gm/dl Albumin 2.9 gm/dl Globulin 3.8 gm/dl Albumin/Globulin Ratio 0.8 Assessment and Plan 78 years old man status post mechanical fall and intertrochanteric left femoral fracture Assessment Intertrochanteric left femoral fracture Status post mechanical fall traumatic hematuria, resolved Uncontrolled hypertension Obesity H/O gastritis H/O Maltoma Plan Postoperative day #3 status post Intramedullary nailing of left intertrochanteric hip fracture Despite of elevated blood pressure patient is symptomatic, explained to the patient that we will bring the pressure down slowly Started low dose hydrochlorothiazide Continue PPI DVT with Xarelto as per primary team. Also on SCD Hematuria cleared, Xarelto was restarted Hematuria resolved, will remove Joseph in a.m. Continued [facility] stay due to: multiple IV medications needed Discharge planning: rehab hospital Continued [facility] stay due to: multiple IV medications needed, home environment unsafe for pt, other (wating for surgery) Discharge planning: rehab hospital
[2017-07-15] MEDS: HYDROCHLOROTHIAZIDE 25 MG TAB PO SCH (19:37)
[2017-07-15 22:52] VITALS: BP 145/78; PULSE 75; TEMP 37.2; O2SAT 96
[2017-07-16 06:53] LABS: BASO % 0.3 %; BASO ABS # 0.03 K/uL (0-0.2); EOS % 3.2 %; HEMATOCRIT 37.8 % (42-52); HEMOGLOBIN 12.9 g/dL (14.0-18.0); IG# 0.07 K/uL (0.00-0.02); LYMPH % 14.8 %; LYMPH ABS # 1.39 K/uL (1.2-3.4); MEAN CELL VOLUME 92.2 fL (80-100); MEAN CORPUSCULAR HEMOGLOBIN 31.5 pg (25-34); MEAN CORPUSCULAR HGB CONC 34.1 g/dl (32-36); MEAN PLATELET VOLUME 10.4 fL (7.4-10.4); MONO % 13.7 %; MONO ABS # 1.28 K/uL (0.11-0.59); NEUT % 67.3 %; PLATELET COUNT 245 K/uL (130-400); RED CELL DISTRIBUTION WIDTH CV 13.5 % (11.5-14.5); RED CELL DISTRIBUTION WIDTH SD 44.7 fL (36.4-46.3); WHITE BLOOD COUNT 9.37 K/uL (4.8-10.8)
[2017-07-16 07:30] LABS: ALBUMIN 2.7 gm/dl (3.4-5.0); CALCIUM 8.5 mg/dl (8.5-10.1); CREATININE 0.98 mg/dl (0.60-1.40); POTASSIUM 3.7 mmol/L (3.5-5.1)
[2017-07-16 07:33] LABS: TOTAL PROTEIN 6.4 gm/dl (6.4-8.2)
[2017-07-16 08:09] VITALS: BP 159/84; PULSE 82; TEMP 36.8; O2SAT 95
[2017-07-16] MEDS: BOOST VANILLA PO SCH (09:00)
[2017-07-16] MEDS: MULTIVITAMIN TAB PO SCH (09:05)
[2017-07-16] MEDS: PANTOprazole SOD 40 MG TAB PO SCH (09:05)
[2017-07-16] MEDS: RIVAROXABAN 10 MG TAB PO SCH (09:05)
[2017-07-16] MEDS: TELMISARTAN 40 MG TAB PO SCH (09:05)
[2017-07-16] MEDS: CHOLECALCIFEROL 1000 INTER.UNIT TAB PO SCH (09:05)
[2017-07-16] MEDS: HYDROCHLOROTHIAZIDE 25 MG TAB PO SCH (09:06)
[2017-07-16] MEDS: PSYLLIUM 58.6% PWD PACK S\\F PO SCH (09:06)
[2017-07-16] MEDS: OXYCODONE HCL IR 5 MG TAB (IMMEDIATE RELEASE) PO PRN (10:47)
[2017-07-16] MEDS ORDERED: RXC5 PO (13:22)
[2017-07-16] MEDS ORDERED: Boost PO (13:22)
[2017-07-16] MEDS ORDERED: XRL10 PO (13:22)
[2017-07-16 15:26] VITALS: BP 159/84; PULSE 82; TEMP 36.8; O2SAT 95
--- NOTE | 2017-08-04 10:16 | Discharge Summary ---
Discharge Summary Date of Service Jul 16, 2017. Discharge Summary Admission Date: Jul 11, 2017 at 12:38 Discharge Date: Jul 16, 2017 Discharge Disposition: Rehab Principal Diagnosis: fall/intertrochanteric left femoral fracture s/p Intramedullary nailing Problems/Secondary Diagnoses: 1. History of Cellulitis (L03.90) 2. History of Cellulitis of trunk (L03.319) 3. History of basal cell carcinoma (Z85.828) 4. History of diverticulitis of colon (Z87.19) 5. History of herpes zoster (Z86.19) 6. History of pyelonephritis (Z87.448) 7. History of sebaceous cyst (Z87.2) 8. History of Iron Deficiency Anemia Secondary To Chronic Blood Loss 9. History of Muscle spasm (M62.838) 10. History of Pain of right scapula (M89.8X1) 11. History of Scalp laceration (S01.01XA) Acute 12. History of abscess of skin and subcutaneous tissue (Z87.2) 13. History of acute bronchitis (Z87.09) 14. History of acute sinusitis (Z87.09) 15. Maltoma History of Cholecystectomy History of Complete Colonoscopy History of Hemorrhoidectomy History of Tonsillectomy Immunizations: Have You Had Influenza Vaccine: No History of Tetanus Vaccine?: Yes Tetanus Immunization Date: Apr 07, 2006 History of Pneumococcal: No History of Hepatitis B Vaccine: No Medication Reconciliation New Medications: Oxycodone HCl (Oxycodone HCl) 5 Mg Tab 5 MG PO Q4HWA PRN for Pain for 7 Days, #12 TAB Rivaroxaban (Xarelto) 10 Mg Tab 10 MG PO DAILY for 28 Days, #28 TAB [Boost] () 1 CAN LIQD 1 CAN PO BID for 30 Days, #60 CAN Continued Medications: Atenolol (Tenormin) 25 Mg Tab 25 MG PO DAILY, TAB Coenzyme E32-Dwnp Oil-Vitamin (Co-Q 10 [place]-3 Fish Oil) 1 Cap Cap 1 CAP PO QAM Multivitamin (Multivitamin) Tab 1 TAB PO DAILY, TAB Pantoprazole (Protonix) 40 Mg Tab 40 MG PO DAILY, #30 TAB Psyllium (Metamucil) 48.57 % Pow 1 DOSE PO QAM Telmisartan/Hctz (Micardis Hct 80MG/12.5MG) Tab 1 TAB PO DAILY, TAB Discontinued Medications: Fish Oil ([place]-3) 1 Ea Cap 1 CAP PO QAM, CAP Naproxen (Aleve) 220 Mg Tab 220 MG PO DAILY, 0 Refills Turmeric (Curcuma Longa) (Turmeric) 500 Mg Tab 1 TAB PO QAM Discharge Exam Review of Systems: Constitutional: No fever, No chills, No sweats, No weight loss, No weakness , No fatigue, No problem reported Eyes: No worsening of vision, No eye pain, No redness, No discharge, No diplopia, No problem reported ENT: No hearing loss, No unusual epistaxis, No nasal symptoms, No sore throat, No tinnitus, No dental problems, No trouble swallowing, No problem reported Respiratory: No cough, No sputum, No wheezing, No shortness of breath, No dyspnea on exertion, No dyspnea at rest, No hemoptysis, No problem reported Cardiovascular: No chest pain, No orthopnea, No PND, No edema, No claudication, No palpitations, No problem reported Abdomen: No pain, No nausea, No vomiting, No diarrhea, No constipation, No GI bleeding, No problem reported Musculoskeletal: No joint pain, No muscle pain, No swelling, No calf pain, No problem reported Genitourinary - Male: No hematuria, No dysuria, No urinary frequency, No urinary urgency, No urinary hesitancy, No urinary retention, No urinary incontinence, No penile discharge, No lesions, No impotence, No problem reported Neurologic: No memory loss, No paralysis, No weakness, No numbness/tingling , No vertigo, No balance problems, No problem reported Psychiatric: No depression symptoms, No anhedonism, No anxiety, No insomnia , No substance abuse, No problem reported Endocrine: No fatigue, No excessive thirst, No excessive urination, No problem reported Hematologic / Lymphatic: No abnormal bleeding/bruising, No clotting problems , No swollen lymph nodes, No night sweats, No problem reported Integumentary: No rash, No itch, No new/changing skin lesions, No color change, No bleeding, No problem reported Physical Exam: General Appearance: WD/WN, no apparent distress Eyes: normal inspection, EOMI ENT: normal ENT inspection, hearing grossly normal Neck: supple Respiratory/Chest: chest non-tender, lungs clear, normal breath sounds, no respiratory distress, no accessory muscle use Cardiovascular: regular rate, rhythm, no edema, no gallop, no JVD, no murmur , normal peripheral pulses Abdomen / GI: normal bowel sounds, non tender, soft, no organomegaly, no pulsatile mass Extremities: normal inspection, no calf tenderness, normal capillary refill , no pedal edema, normal range of motion Neurologic/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 Patient fell on his left side and felt sevre pain after falling. He went to the ER where it was confirmed he had a left intertrochanteric fracture. In the outpatient setting, patient was recently diagnosed with a Maltoma from an EGD. Patient has not started local radiation therapy. Patient denies any histry of storke, TIA, CKD, insulin use, [place], CHF. " 78 years old man status post mechanical fall and intertrochanteric left femoral fracture Status post mechanical fall Intertrochanteric left femoral fracture Postoperative day #4 status post Intramedullary nailing of left intertrochanteric hip fracture DVt prophylaxis by xarelto will follow up with orthopedic he was found to have elevated blood pressure , possibly pain induced, bp needs to be monitored as an out patient. he was continued n his home meds since he will be on xarelto , he was instructed to hold his naproxen, tumeric and fish oil while he is on xarelto stable for discharge to rehab Total Time Spent: Greater than 30 minutes This includes examination of the patient, discharge planning, medication reconciliation, and communication with other providers. Discharge Instructions Please refer to the electronic Patient Visit Report (Discharge Instructions) for additional information.
== END 2017-07-16 16:18 | DRG 481 ==
LOC: EDBD 11:04 → C.EDA 11:06 → C.MSW 12:38 → EDBEDREQ 12:45 → ENRESERV 13:10
PROVIDERS: ADMIT Internal Medicine Sports Medicine; ATTEND Internal Medicine
PROC: 0QS706Z Reposition Left Upper Femur with Intramedullary Internal Fixation Device, Open Approach (ICD-10-PCS; principal; 2017-07-12 09:00)
DX: S72.102A Unspecified trochanteric fracture of left femur, initial encounter for closed fracture (principal); C85.19 Unspecified B-cell lymphoma, extranodal and solid organ sites; I10 Essential (primary) hypertension; I16.0 Hypertensive urgency; E66.9 Obesity, unspecified; K29.70 Gastritis, unspecified, without bleeding; Y93.01 Activity, walking, marching and hiking; E78.5 Hyperlipidemia, unspecified; Z83.3 Family history of diabetes mellitus; Z87.891 Personal history of nicotine dependence; W00.0XXA Fall on same level due to ice and snow, initial encounter; Y92.014 Private driveway to single-family (private) house as the place of occurrence of the external cause

== ENCOUNTER → 2017-07-20 | Outpatient (CLI) | payer BC ==
[~2017-07-20] MED LIST changes: +Boost PO; -NAPR1TAB9 PO; -OMEG10007 PO; +RXC5 PO; -TURM500T PO; +XRL10 PO
[2017-07-20 09:51] LABS: BASO % 0.4 %; BASO ABS # 0.03 K/uL (0-0.2); EOS % 2.1 %; EOS ABS # 0.16 K/uL (0-0.5); HEMATOCRIT 35.1 % (42-52); HEMOGLOBIN 11.6 g/dL (14.0-18.0); IG# 0.09 K/uL (0.00-0.02); LYMPH % 19.9 %; LYMPH ABS # 1.54 K/uL (1.2-3.4); MEAN CELL VOLUME 92.6 fL (80-100); MEAN CORPUSCULAR HEMOGLOBIN 30.6 pg (25-34); MEAN PLATELET VOLUME 10.3 fL (7.4-10.4); MONO % 14.2 %; NEUT % 62.2 %; PLATELET COUNT 321 K/uL (130-400); RED CELL DISTRIBUTION WIDTH CV 13.7 % (11.5-14.5); WHITE BLOOD COUNT 7.72 K/uL (4.8-10.8)
[2017-07-20 10:08] LABS: BLOOD UREA NITROGEN 21 mg/dl (7-18); CALCIUM 8.5 mg/dl (8.5-10.1); CARBON DIOXIDE 25 mmol/L (21-32); CREATININE 0.93 mg/dl (0.60-1.40); GLUCOSE 111 mg/dl (70-99); POTASSIUM 3.6 mmol/L (3.5-5.1); SODIUM 136 mmol/L (136-145)
== END ==
LOC: C.LABCC 09:03
PROVIDERS: ATTEND Internal Medicine
DX: D64.9 Anemia, unspecified (principal); I10 Essential (primary) hypertension; E87.1 Hypo-osmolality and hyponatremia

== ENCOUNTER → 2017-07-28 | Outpatient (CLI) | payer BC ==
[2017-07-28 08:17] LABS: HEMATOCRIT 41.3 % (42-52); HEMOGLOBIN 14.1 g/dL (14.0-18.0); MEAN CELL VOLUME 93.7 fL (80-100); MEAN CORPUSCULAR HGB CONC 34.1 g/dl (32-36); MEAN PLATELET VOLUME 10.2 fL (7.4-10.4); PLATELET COUNT 432 K/uL (130-400); RED CELL DISTRIBUTION WIDTH CV 14.1 % (11.5-14.5); RED CELL DISTRIBUTION WIDTH SD 48.2 fL (36.4-46.3)
== END ==
LOC: C.LABCC 07:50
PROVIDERS: ATTEND Internal Medicine
DX: D64.9 Anemia, unspecified (principal)

== ENCOUNTER → 2017-08-07 | Outpatient (CLI) | payer BC | END | disposition home or self-care (01) | LOC: C.LAB1850 14:20 | PROVIDERS: ATTEND Physician Assistant Medical | DX: R39.15 Urgency of urination (principal) ==

== ENCOUNTER → 2017-08-21 | Outpatient (CLI) | payer BC ==
[~2017-08-21] MED LIST changes: +KRIL1000 PO; +TRAM-10 PO
[2017-08-21 13:11] LABS: BASO % 0.4 %; BASO ABS # 0.04 K/uL (0-0.2); HEMATOCRIT 45.9 % (42-52); HEMOGLOBIN 15.7 g/dL (14.0-18.0); IG# 0.04 K/uL (0.00-0.02); LYMPH % 17.3 %; LYMPH ABS # 1.67 K/uL (1.2-3.4); MEAN CELL VOLUME 92.4 fL (80-100); MEAN CORPUSCULAR HEMOGLOBIN 31.6 pg (25-34); MEAN CORPUSCULAR HGB CONC 34.2 g/dl (32-36); MEAN PLATELET VOLUME 10.7 fL (7.4-10.4); MONO % 11.1 %; MONO ABS # 1.07 K/uL (0.11-0.59); NEUT % 69.8 %; NEUT ABS # 6.74 K/uL (1.4-6.5); PLATELET COUNT 282 K/uL (130-400); RED CELL DISTRIBUTION WIDTH CV 14.2 % (11.5-14.5); RED CELL DISTRIBUTION WIDTH SD 47.8 fL (36.4-46.3); WHITE BLOOD COUNT 9.66 K/uL (4.8-10.8)
[2017-08-21 13:53] LABS: ALBUMIN 3.8 gm/dl (3.4-5.0); ALT/SGPT 36 U/L (12-78); BLOOD UREA NITROGEN 19 mg/dl (7-18); CALCIUM 9.7 mg/dl (8.5-10.1); CARBON DIOXIDE 27 mmol/L (21-32); CREATININE 1.17 mg/dl (0.60-1.40); GLUCOSE 126 mg/dl (70-99); POTASSIUM 3.5 mmol/L (3.5-5.1); SODIUM 137 mmol/L (136-145)
[2017-08-21 13:55] LABS: ALKALINE PHOSPHATASE 163 U/L (45-117); AST/SGOT 33 U/L (15-37); TOTAL PROTEIN 8.1 gm/dl (6.4-8.2)
== END | disposition home or self-care (01) ==
LOC: C.LAB1850 12:11
PROVIDERS: ATTEND Physician Assistant Medical
DX: R53.83 Other fatigue (principal); R61 Generalized hyperhidrosis

== ENCOUNTER → 2017-09-22 | Outpatient (CLI) | payer BC ==
[~2017-09-22] MED LIST changes: -Boost PO; -RXC5 PO; -XRL10 PO
[2017-09-22 14:26] LABS: ALBUMIN 3.6 gm/dl (3.4-5.0); TOTAL PROTEIN 7.3 gm/dl (6.4-8.2)
== END | disposition home or self-care (01) ==
LOC: C.LAB1850 11:29
PROVIDERS: ATTEND Physician Assistant Medical
DX: R79.9 Abnormal finding of blood chemistry, unspecified (principal)

== ENCOUNTER 2019-06-21 01:12 | Inpatient (IN) ==
[2019-06-21] MEDS ORDERED: SODIUM CHLORIDE 0.9% 1000ML 1,000 ML IV SCH ×2 (01:34→04:30)
[2019-06-21] MEDS ORDERED: ACETAMINOPHEN 1,000 MG/100 ML VIAL IV STA (01:34)
[2019-06-21 01:43] LABS: Basophils # (auto) 0.02 K/uL (0-0.2); Basophils % (auto) 0.1 %; Eosinophils # (auto) 0.03 K/uL (0-0.5); Eosinophils % (auto) 0.2 %; Hematocrit (blood only) 46.1 % (42-52); Hemoglobin 16.1 g/dL (14.0-18.0); Immature Granulocytes # (auto) 0.07 K/uL (0.00-0.02); Immature Granulocytes % (auto) 0.5 %; Lymphocytes # (auto) 1.25 K/uL (1.2-3.4); Lymphocytes % (auto) 8.7 %; Mean Corpuscular Hemoglobin 32.9 pg (25-34); Mean Corpuscular Hgb Conc 34.9 g/dL (32-36); Mean Corpuscular Volume 94.3 fL (80-100); Mean Platelet Volume 11.1 fL (7.4-10.4); Monocytes # (auto) 0.74 K/uL (0.11-0.59); Monocytes % (auto) 5.1 %; Neutrophils % (auto) 85.4 %; Platelet Count 165 K/uL (130-400); RDW Coefficient of Variation 14.1 % (11.5-14.5); RDW Standard Deviation 48.3 fL (36.4-46.3); Red Blood Count 4.89 M/uL (4.7-6.1); White Blood Count 14.41 K/uL (4.8-10.8)
[2019-06-21] MEDS ORDERED: VANCOMYCIN HCL 2,250 MG in SODIUM CHLORIDE 0.9% 500 ML IV ONE (01:49)
[2019-06-21] MEDS ORDERED: VANCOMYCIN CONSULT ACTIVE PRN (01:49)
[2019-06-21] MEDS ORDERED: CEFEPIME 2,000 MG/20 ML VIAL IV STA (01:49)
[2019-06-21 01:50] LABS: Albumin Level 3.6 gm/dl (3.4-5.0); BUN Creatinine Ratio 20.9 (10-20); Calcium 8.8 mg/dl (8.5-10.1); Creatinine Clr Calc Pharmacy 52.9 ml/min; Est GFR (African American) 53.3; Magnesium 2.1 mg/dl (1.8-2.4)
[2019-06-21 02:01] LABS: INR 1.2 (0.9-1.1); Partial Thromboplastin Time 27.9 Seconds (21.0-31.0); Prothrombin Time 12.4 Seconds (9.0-12.0)
[2019-06-21 02:02] LABS: Albumin Globulin Ratio 0.9 (0.9-2); Bilirubin,Total 1.5 mg/dl (0.2-1); Globulin 4.2 gm/dl (2.5-4.0); Total Protein 7.8 gm/dl (6.4-8.2); Troponin I 0.063 ng/ml (0-0.045)
[2019-06-21] MEDS ORDERED: ALBUT/IPRATROP 3MG/0.5MG NEB 3 ML VIAL NEB STA (02:10)
[2019-06-21 02:12] LABS: Appearance Urine Clear (Clear); Bacteria Urine Automated Negative (Negative); Bilirubin Urine Negative (Negative); Blood Urine 3+ (Negative); Color Urine Dark Yellow; Epithelial Cell Urine Auto 20-30 /lpf (0-5); Glucose Urine UA Negative (Negative); Ketones Urine Trace (Negative); Leukocyte Esterase Urine Negative (Negative); Nitrite Urine Negative (Negative); Protein Urine 1+ (Negative); RBC Urine Automated >30 /hpf (0-4); Specific Gravity Urine 1.022 (1.000-1.030); Urobilinogen Urine Negative (Negative); pH Urine 5.5 (4.5-7.5)
--- NOTE | 2019-06-21 02:15 | Emergency Department Note ---
Entered by Silvina Parr acting as a scribe for Diane Mckeon DO History of Present Illness General Chief complaint: Respiratory Problems Stated complaint: BREATHING DIFFICULTY Time Seen by Provider: 06/21/19 01:14 Source: patient History of Present Illness Provider complaint: shortness of breath Onset (ago): day(s) 1 Location: chest Radiation: non-radiation Pain Consistency: + intermittent Relieved By: + none Associated symptoms: + denies other symptoms, + cough, + fever/chills and + shortness of breath The patient is an 79 y/o male who presents to the emergency department for evaluation of intermittent shortness of breath that began yesterday. EMS states that the patient noted he has been ill for 2 days and last night he began having respiratory issues with a cough. The patient states that his cough has production that is red, yellow and brown in color. The patient states he developed fevers and chills today and felt shakey. EMS reports that patient was at 84% O2 sat on room air. EMS gave him 2 neb treatments en route. The patient reports he has had a fever but hasnt taken anything for it. The patient denies any other symptoms. Pt states possible sick contacts recently with family present over the holidays. Pt states he has had pneumonia previously. States he did get a pneumonia shot this year. Pt doesn't use oxygen, MDI, or nebs at home. Remote hx of smoking. No dx of asthma or COPD. Home Medications Home Medications Medication Instructions Recorded Confirmed Type acetaminophen [Tylenol Extra 1,000 mg PO Q6H PRN 05/31/19 06/21/19 History Strength] apple cider vinegar 600 mg PO QPM 05/31/19 06/21/19 History ascorbic acid (vitamin C) [Vitamin 1,000 mg PO QAM 05/31/19 06/21/19 History C] cholecalciferol (vitamin D3) 5,000 unit PO QPM 05/31/19 06/21/19 History [Vitamin D3] coQ10 (ubiquinol) 100 mg PO QPM 05/31/19 06/21/19 History docusate sodium [Stool Softener] 100 mg PO QPM 05/31/19 06/21/19 History fish,bora,flax oils-om3,6,9no1 1 cap PO BID 05/31/19 06/21/19 History [[place]ks 3-6-9] multivitamin 1 tab PO QAM 05/31/19 06/21/19 History naproxen sodium [Aleve] 440 mg PO QAM 05/31/19 06/21/19 History pantoprazole 40 mg PO QAM 05/31/19 06/21/19 History telmisartan-hydrochlorothiazid 1 tab PO QAM 05/31/19 06/21/19 History turmeric 1,000 mg PO QPM 05/31/19 06/21/19 History vitamin B complex 1 cap PO QPM 05/31/19 06/21/19 History vitamin E 400 unit PO QPM 05/31/19 06/21/19 History atenolol 50 mg tablet 50 mg PO QAM #90 tab 06/14/19 06/21/19 Rx hydrochlorothiazide 25 mg PO DAILY 06/21/19 06/21/19 History Allergies Allergy/AdvReac Type Severity Reaction Status Date / Time No Known Allergies Allergy Unverified 06/21/19 01:46 Past Med/Surg History Medical History Arthritis Encounter for removal of melba (Acute) 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 Surgical History History of cardiac cath 20 YRS AGO-DONE FOR CHEST PAIN-NO STENTS NEEDED History of colonoscopy History of esophagogastroduodenoscopy (EGD) Hx of cholecystectomy (Resolved) Intertrochanteric fracture of left femur Family History Grandmother (Paternal) Family history of diabetes mellitus Father Family history of esophageal cancer Other No significant family history Social History Preferred Language: Mosotho 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 Ability: Effective [place] Required: No Beliefs That Will Affect Care: None Current Living Situation: Spouse Other Information That Helps Us Care for You: No Feels Safe at Home: Yes Safety Concerns: Feels Safe At This Time Smoking Status: Unknown if ever smoked Hx Alcohol Use: No Hx Substance Use: No Review of Systems See HPI for pertinent positives & negatives. and A total of 10 systems reviewed and were otherwise negative Physical Exam Vital Signs Vital Signs - 24 hr 06/21/19 01:35 06/21/19 01:38 06/21/19 01:42 Temperature 38.9 C H Temperature Source Oral Pulse Rate 119 H Pulse Rate [Bilateral Apical] Respiratory Rate 26 H Respiratory Effort / Characteristics Labored Blood Pressure 183/113 H Blood Pressure [Left Arm] Blood Pressure Mean 136 Blood Pressure Mean [Left Arm] Pulse Oximetry 89 L 2 L 90 Oxygen Delivery Method Room Air Nasal Cannula Nasal Cannula Oxygen Flow Rate 3 Sepsis Recent Fever Within 48 Hours Yes Sepsis Action Taken by Nursing Physician Notified 06/21/19 02:04 06/21/19 02:32 06/21/19 02:48 Temperature 38.1 C H Temperature Source Oral Pulse Rate Pulse Rate [Bilateral Apical] 117 H 112 H 115 H Respiratory Rate 24 16 24 Respiratory Effort / Characteristics Non-Labored Spontaneous Blood Pressure Blood Pressure [Left Arm] 163/77 H 155/74 H Blood Pressure Mean Blood Pressure Mean [Left Arm] 105 101 Pulse Oximetry 90 90 93 Oxygen Delivery Method Nasal Cannula Nasal Cannula Nasal Cannula Oxygen Flow Rate 4 4 4 Sepsis Recent Fever Within 48 Hours Sepsis Action Taken by Nursing 06/21/19 03:34 Temperature Temperature Source Pulse Rate Pulse Rate [Bilateral Apical] 107 H Respiratory Rate 22 Respiratory Effort / Characteristics Blood Pressure Blood Pressure [Left Arm] 160/73 H Blood Pressure Mean Blood Pressure Mean [Left Arm] 102 Pulse Oximetry 93 Oxygen Delivery Method Nasal Cannula Oxygen Flow Rate 4 Sepsis Recent Fever Within 48 Hours Sepsis Action Taken by Nursing GENERAL: alert, uncomfortable appearing, shaking chills, well nourished, mild distress, ill appearing EYE EXAM: normal conjunctiva, PERRL and EOM's grossly intact OROPHARYNX: no exudate, no erythema, lips, buccal mucosa, and tongue normal and mucous membranes are moist NECK: supple, no nuchal rigidity, no adenopathy, non-tender LUNGS: Course breath sounds bilaterally, left worse than right. Normal chest wall mechanics HEART: no murmurs, S1 normal and S2 normal ABDOMEN: abdomen soft, non-tender, normo-active bowel sounds, no masses, no re bound or guarding. BACK: Back is symmetrical on inspection and there is no deformity, no midline tenderness, no CVA tenderness. SKIN: no rashes and no bruising UPPER EXTREMITIES: upper extremities are grossly normal. FROM, nml pulses b/l LOWER EXTREMITIES: 1+ edema bilaterally. FROM, nml pulses b/l. NEURO EXAM: Normal sensorium, cranial nerves II-XII intact, normal speech, no weakness of arms, no weakness of legs. Course Course 0116: Past medical records reviewed. The patient was evaluated in room B04. A complete history and physical exam was performed. 0138: I checked on the patient. Discussed the patients symptoms and progression with at bedside. The patient was at 89% on 2 liter and increased to 3 liter s. Rigors have improved. 0224: I updated the patient and on the test results and discussed the plan for admission with them. 0230: [facility] He will evaluate for further management. Administered Medications Sodium Chloride (Nss 1000ml) 1,000 mls @ 125 mls/hr IV .Q8H DEMETRICE Stop: 06/21/19 09:33 Last Infusion: 06/21/19 02:37 Dose: 0 mls/hr Documented by: [id number] Admin: 06/21/19 01:55 Dose: 125 mls/hr Documented by: [id number] Discontinued Medications Albuterol (Duoneb) 3 ml NEB NOW STA Stop: 06/21/19 02:11 Last Admin: 06/21/19 02:30 Dose: 3 ml Documented by: [id number] Aspirin (Aspirin) 324 mg PO NOW STA Stop: 06/21/19 02:28 Last Admin: 06/21/19 02:42 Dose: 324 mg Documented by: [id number] Acetaminophen (Ofirmev) 1,000 mg in 100 mls @ 400 mls/hr IV NOW STA Stop: 06/21/19 01:48 Last Infusion: 06/21/19 02:14 Dose: 0 mls/hr Documented by: [id number] Admin: 06/21/19 01:55 Dose: 400 mls/hr Documented by: [id number] Vancomycin HCl 2,250 mg/ (Sodium Chloride) 545 mls @ 200 mls/hr IV NOW ONE Stop: 06/21/19 04:32 Last Admin: 06/21/19 02:26 Dose: 200 mls/hr Documented by: [id number] Cefepime HCl (Maxipime) 2,000 mg in 20 mls @ 5 mls/min IV NOW STA Stop: 06/21/19 01:52 Last Admin: 06/21/19 02:24 Dose: 5 mls/min Documented by: [id number] Sodium Chloride (Nss 1000ml) 1,000 mls @ 999 mls/hr IV .Q1H1M ONE Stop: 06/21/19 03:36 Last Infusion: 06/21/19 03:34 Dose: 0 mls/hr Documented by: [id number] Admin: 06/21/19 02:37 Dose: 999 mls/hr Documented by: [id number] Critical Care Time Critical Care Time: Yes Total Critical Care Time: 37 Critical care of 37 min performed to assess and manage high likelihood of life- threatening sepsis, involving labs and imaging performed with assessment to evaluation sepsis diagnosis with frequent reassessment. This time includes bedside time, treatment discussions with patient/family/consultants, documentation time and excludes procedure time. Medical Decision Making Differential Diagnosis Differential diagnosis: Etiologies such as infections, reactive airway disease, COPD, pneumonia, pleural effusion, pulmonary edema, ARDS, pneumothorax, CHF, cardiac ischemia, cardiac tamponade, dysrhythmia, anemia, pulmonary embolism, musculoskeletal, gastrointestinal process, as well as others were entertained. Medical Records Attestation: I reviewed the patient's medical records. Home Medications Current Medication List: was personally reviewed by me Laboratory Data Attestation: I reviewed the patient's lab results. Result diagrams: 06/21/19 01:10 06/21/19 01:10 Lab Results 06/21/19 06/21/19 06/21/19 Range/Units 01:10 01:10 01:10 WBC 14.41 H (4.8-10.8) K/uL RBC 4.89 (4.7-6.1) M/uL Hgb 16.1 (14.0-18.0) g/dL Hct 46.1 (42-52) % MCV 94.3 (80-100) fL MCH 32.9 (25-34) pg MCHC 34.9 (32-36) g/dL RDW Std Deviation 48.3 H (36.4-46.3) fL RDW Coeff of Gerber 14.1 (11.5-14.5) % Plt Count 165 (130-400) K/uL MPV 11.1 H (7.4-10.4) fL Immature Gran % (Auto) 0.5 % Neut % (Auto) 85.4 % Lymph % (Auto) 8.7 % Gila % (Auto) 5.1 % Eos % (Auto) 0.2 % Baso % (Auto) 0.1 % Immature Gran # (Auto) 0.07 H (0.00-0.02) K/uL Neut # (Auto) 12.30 H (1.4-6.5) K/uL Lymph # (Auto) 1.25 (1.2-3.4) K/uL Gila # (Auto) 0.74 H (0.11-0.59) K/uL Eos # (Auto) 0.03 (0-0.5) K/uL Baso # (Auto) 0.02 (0-0.2) K/uL PT 12.4 H (9.0-12.0) Seconds INR 1.2 H (0.9-1.1) APTT 27.9 (21.0-31.0) Seconds PTT Ratio 1.0 Sodium 137 (136-145) mmol/L Potassium 3.0 L (3.5-5.1) mmol/L Chloride 103 (98-107) mmol/L Carbon Dioxide 30 (21-32) mmol/L Anion Gap 4.0 (3-11) BUN 30 H (7-18) mg/dl Creatinine 1.42 H (0.6-1.4) mg/dl Est Cr Clr Drug Dosing 52.9 ml/min Est GFR ( Amer) 53.3 Est GFR (Non-Af Amer) 46.0 BUN/Creatinine Ratio 20.9 H (10-20) Glucose 123 H (70-99) mg/dl POC Lactic Acid Андрей (0.90-1.70) mmol/L Calcium 8.8 (8.5-10.1) mg/dl Magnesium 2.1 (1.8-2.4) mg/dl Total Bilirubin 1.5 H (0.2-1) mg/dl AST 43 H (15-37) U/L ALT 45 (12-78) U/L Alkaline Phosphatase 77 (45-117) U/L Troponin I 0.063 H* (0-0.045) ng/ml NT-Pro-B Natriuret Pep 490 (0-1800) pg/ml Total Protein 7.8 (6.4-8.2) gm/dl Albumin 3.6 (3.4-5.0) gm/dl Globulin 4.2 H (2.5-4.0) gm/dl Albumin/Globulin Ratio 0.9 (0.9-2) Procalcitonin (0-0.5) ng/ml Urine Color Urine Appearance (Clear) Urine pH (4.5-7.5) Ur Specific [place] (1.000-1.030) Urine Protein (Negative) Urine Glucose (UA) (Negative) Urine Ketones (Negative) Urine Blood (Negative) Urine Nitrite (Negative) Urine Bilirubin (Negative) Urine Urobilinogen (Negative) Ur Leukocyte Esterase (Negative) Urine WBC (Auto) (0-5) /hpf Urine RBC (Auto) (0-4) /hpf U Hyaline Cast (Auto) (0-5) /lpf U Epithel Cells (Auto) (0-5) /lpf Urine Bacteria (Auto) (Negative) Influenza Type A (PCR) (Neg) Influenza Type B (PCR) (Neg) 06/21/19 06/21/19 06/21/19 Range/Units 01:10 01:28 01:48 WBC (4.8-10.8) K/uL RBC (4.7-6.1) M/uL Hgb (14.0-18.0) g/dL Hct (42-52) % MCV (80-100) fL MCH (25-34) pg MCHC (32-36) g/dL RDW Std Deviation (36.4-46.3) fL RDW Coeff of Gerber (11.5-14.5) % Plt Count (130-400) K/uL MPV (7.4-10.4) fL Immature Gran % (Auto) % Neut % (Auto) % Lymph % (Auto) % [place]ila % (Auto) % Eos % (Auto) % Baso % (Auto) % Immature Gran # (Auto) (0.00-0.02) K/uL Neut # (Auto) (1.4-6.5) K/uL Lymph # (Auto) (1.2-3.4) K/uL Gila # (Auto) (0.11-0.59) K/uL Eos # (Auto) (0-0.5) K/uL Baso # (Auto) (0-0.2) K/uL PT (9.0-12.0) Seconds INR (0.9-1.1) APTT (21.0-31.0) Seconds PTT Ratio Sodium (136-145) mmol/L Potassium (3.5-5.1) mmol/L Chloride (98-107) mmol/L Carbon Dioxide (21-32) mmol/L Anion Gap (3-11) BUN (7-18) mg/dl Creatinine (0.6-1.4) mg/dl Est Cr Clr Drug Dosing ml/min Est GFR ( Amer) Est GFR (Non-Af Amer) BUN/Creatinine Ratio (10-20) Glucose (70-99) mg/dl POC Lactic Acid Андрей 3.45 H (0.90-1.70) mmol/L Calcium (8.5-10.1) mg/dl Magnesium (1.8-2.4) mg/dl Total Bilirubin (0.2-1) mg/dl AST (15-37) U/L ALT (12-78) U/L Alkaline Phosphatase (45-117) U/L Troponin I (0-0.045) ng/ml NT-Pro-B Natriuret Pep (0-1800) pg/ml Total Protein (6.4-8.2) gm/dl Albumin (3.4-5.0) gm/dl Globulin (2.5-4.0) gm/dl Albumin/Globulin Ratio (0.9-2) Procalcitonin 8.61 H (0-0.5) ng/ml Urine Color Dark Yellow Urine Appearance Clear (Clear) Urine pH 5.5 (4.5-7.5) Ur Specific [place] 1.022 (1.000-1.030) Urine Protein 1+ H (Negative) Urine Glucose (UA) Negative (Negative) Urine Ketones Trace H (Negative) Urine Blood 3+ H (Negative) Urine Nitrite Negative (Negative) Urine Bilirubin Negative (Negative) Urine Urobilinogen Negative (Negative) Ur Leukocyte Esterase Negative (Negative) Urine WBC (Auto) 1-5 (0-5) /hpf Urine RBC (Auto) >30 H (0-4) /hpf U Hyaline Cast (Auto) 1-5 (0-5) /lpf U Epithel Cells (Auto) 20-30 H (0-5) /lpf Urine Bacteria (Auto) Negative (Negative) Influenza Type A (PCR) (Neg) Influenza Type B (PCR) (Neg) 06/21/19 Range/Units 01:48 WBC (4.8-10.8) K/uL RBC (4.7-6.1) M/uL Hgb (14.0-18.0) g/dL Hct (42-52) % MCV (80-100) fL MCH (25-34) pg MCHC (32-36) g/dL RDW Std Deviation (36.4-46.3) fL RDW Coeff of Gerber (11.5-14.5) % Plt Count (130-400) K/uL MPV (7.4-10.4) fL Immature Gran % (Auto) % Neut % (Auto) % Lymph % (Auto) % [place] % (Auto) % Eos % (Auto) % Baso % (Auto) % Immature Gran # (Auto) (0.00-0.02) K/uL Neut # (Auto) (1.4-6.5) K/uL Lymph # (Auto) (1.2-3.4) K/uL [place] # (Auto) (0.11-0.59) K/uL Eos # (Auto) (0-0.5) K/uL Baso # (Auto) (0-0.2) K/uL PT (9.0-12.0) Seconds INR (0.9-1.1) APTT (21.0-31.0) Seconds PTT Ratio Sodium (136-145) mmol/L Potassium (3.5-5.1) mmol/L Chloride (98-107) mmol/L Carbon Dioxide (21-32) mmol/L Anion Gap (3-11) BUN (7-18) mg/dl Creatinine (0.6-1.4) mg/dl Est Cr Clr Drug Dosing ml/min Est GFR ( Amer) Est GFR (Non-Af Amer) BUN/Creatinine Ratio (10-20) Glucose (70-99) mg/dl POC Lactic Acid Андрей (0.90-1.70) mmol/L Calcium (8.5-10.1) mg/dl Magnesium (1.8-2.4) mg/dl Total Bilirubin (0.2-1) mg/dl AST (15-37) U/L ALT (12-78) U/L Alkaline Phosphatase (45-117) U/L Troponin I (0-0.045) ng/ml NT-Pro-B Natriuret Pep (0-1800) pg/ml Total Protein (6.4-8.2) gm/dl Albumin (3.4-5.0) gm/dl Globulin (2.5-4.0) gm/dl Albumin/Globulin Ratio (0.9-2) Procalcitonin (0-0.5) ng/ml Urine Color Urine Appearance (Clear) Urine pH (4.5-7.5) Ur Specific [place] (1.000-1.030) Urine Protein (Negative) Urine Glucose (UA) (Negative) Urine Ketones (Negative) Urine Blood (Negative) Urine Nitrite (Negative) Urine Bilirubin (Negative) Urine Urobilinogen (Negative) Ur Leukocyte Esterase (Negative) Urine WBC (Auto) (0-5) /hpf Urine RBC (Auto) (0-4) /hpf U Hyaline Cast (Auto) (0-5) /lpf U Epithel Cells (Auto) (0-5) /lpf Urine Bacteria (Auto) (Negative) Influenza Type A (PCR) Neg for Influ A (Neg) Influenza Type B (PCR) Neg for Influ B (Neg) Imaging Data Attestation: I personally reviewed and interpreted this imaging study as follows: My Impression: Chest x-ray showed cardiomegaly, no effusions, no wide mediastinum. Increased interstitial marking bilaterally, appearance of infiltrate at left base noted. ECG Data Attestation: I personally reviewed and interpreted this ECG as follows: Indication: + SOB/dyspnea Rate (beats per minute): 117 Rhythm: + sinus tachycardia ECG Mina: + Left axis deviation ECG ST segments: + ST depression (V4, V5, V6); no ST elevation ECG Findings: + Other (normal interval, baseline artifacts throughout) Blood Pressure Blood Pressure Findings: Elevated blood pressure Blood Pressure Disposition: further management by hospitalist [facility] Narrative Patient presenting here with trouble breathing, cough, fevers and chills. Upon initial evaluation patient noted to be febrile, tachycardic, tachypneic, hypoxic on room air, with active rigors. A septic work-up was initiated. Patient given Tylenol for fever. Cultures drawn and sent and patient started on broad- spectrum antibiotics. Initially fluids started at maintenance rate as patient was hypertensive, and with coarse breath sounds there was concern for possible component of pulmonary edema. After review of chest x-ray, fluids increased to achieve 30 mL/KG goal. Patient noted to have mild acute kidney injury. Troponin elevated, although I suspect this is likely secondary to infection and not ACS. Patient did have slight ST depressions noted in V4 through V6, although given tachycardia some of this may be rate related. I discussed all results and plan with patient and at bedside, they verbalized understanding and were in agreement. Case discussed with hospitalist team for additional inpatient management. Impression & Plan Sepsis, Pneumonia, Elevated troponin, Hypoxia, Acute kidney injury Discharge Plan Visit Data *Final* Discharge Date/Time: 06/21/19 03:57 Chief Complaint: Respiratory Problems Stated Complaint: BREATHING DIFFICULTY ED Provider: Diane Mckeon Discharge Problem: Sepsis, Pneumonia, Elevated troponin, Hypoxia, Acute kidney injury Patient Disposition: Being Evaluated by Hospitalist Condition: Fair Discharge Instructions Interventions: ED Discharge Assessment Last Done: 06/21/19 03:57 The scribe's documentation has been prepared under my direction and personally reviewed by me in its entirety. I confirm that the note above accurately reflects all work, treatment, procedures, and medical decision making performed by me.
[2019-06-21] MEDS ORDERED: ASPIRIN CHEW 324 MG PO STA (02:27)
[2019-06-21] MEDS ORDERED: SODIUM CHLORIDE 0.9% 1000ML 1,000 ML IV ONE ×2 (02:36→03:49)
[2019-06-21 02:38] LABS: Influenza A virus by PCR Neg for Influ A (Neg); Influenza B virus by PCR Neg for Influ B (Neg)
--- NOTE | 2019-06-21 04:02 | History & Physical Report ---
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 Once can resume diet recommend HH/diabetic (pt has prediabetes). 1/2NSS D5w +20K at maintenance. Cont PPI. DVT ppx: lovenox CODE STATUS: FULL as d/w pt and at bedside DISPO: Telemetry (2) Pneumonia: as above (3) Elevated troponin: a/w chest pain prior to arrival that resolved with oxygen administration - remote h/o heart cath that did not require stents. trend troponins TTE in AM NPO pending these studies (4) Hypoxia: no significant chronic pulmonary disease or chronic O2 requirement O2 as needed (5) Hypertension: elevated BP on admission hypokalemia 3.0 HOLD HCTZ HOLD ARB in setting of WICHO continue home atenolol - and add IV lopressor PRN HTN. (6) Acute kidney injury: IVF hydration HOLD home NSAIDs follow bmp (7) Prediabetes: A1c 06/07/19 6.2% - apparently controlled with diet/exercise Follow (8) Hypokalemia: replete as needed HOLD ing HCTZ in setting of WICHO. History of Present Illness Chief Complaint: Shortness of breath, rigors, chills, chest pain Primary Care Provider: Orlando Altman MD This is an 79-year-old male with past medical history for MALT lymphoma in remission, hypertension, arthritis --who presents to the ED after acute onset of rigors, chills, shortness of breath and productive cough for 1 day. is at the bedside and also offers history. She states he ate a normal lunch yesterday but then quickly felt ill with chills and malaise. He laid down and rested most of the day. 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 He states he did get specks of blood in the mucus that he brought up. He also notes some loose stools, although states he does occasionally get loose stools from time to time anyway. He also noted a darkening of his urine over the last day. He denies burning with urination. He notes he has some lower back pain but this is not uncommon for him as he has arthritis and takes 2 Naprosyn daily. Past medical history: MALT lymphoma in remission, last seen by oncology in April 2019 for surveillance, no signs or symptoms of recurrent disease. He is 2 years out from the end of radiation. Hypertension. Osteoarthritis. GERD. Past surgical history:History of cardiac cath 20 yrs ago, no stents placed. (EGD). cholecystectomy. Intertrochanteric fracture of left femur. Social history: lives with . Former smoker. Social etoh. No drugs. ED course: Aspirin 324 mg, 2L NSS, duoneb, cefepime and vancomycin Allergies Allergy/AdvReac Type Severity Reaction Status Date / Time No Known Allergies Allergy Unverified 06/21/19 01:46 Home Medications Home Medications Medication Instructions Recorded Confirmed Type acetaminophen [Tylenol Extra 1,000 mg PO Q6H PRN 05/31/19 06/21/19 History Strength] apple cider vinegar 600 mg PO QPM 05/31/19 06/21/19 History ascorbic acid (vitamin C) [Vitamin 1,000 mg PO QAM 05/31/19 06/21/19 History C] cholecalciferol (vitamin D3) 5,000 unit PO QPM 05/31/19 06/21/19 History [Vitamin D3] coQ10 (ubiquinol) 100 mg PO QPM 05/31/19 06/21/19 History docusate sodium [Stool Softener] 100 mg PO QPM 05/31/19 06/21/19 History fish,bora,flax oils-om3,6,9no1 1 cap PO BID 05/31/19 06/21/19 History [Kingsley 3-6-9] multivitamin 1 tab PO QAM 05/31/19 06/21/19 History naproxen sodium [Aleve] 440 mg PO QAM 05/31/19 06/21/19 History pantoprazole 40 mg PO QAM 05/31/19 06/21/19 History telmisartan-hydrochlorothiazid 1 tab PO QAM 05/31/19 06/21/19 History turmeric 1,000 mg PO QPM 05/31/19 06/21/19 History vitamin B complex 1 cap PO QPM 05/31/19 06/21/19 History vitamin E 400 unit PO QPM 05/31/19 06/21/19 History atenolol 50 mg tablet 50 mg PO QAM #90 tab 06/14/19 06/21/19 Rx hydrochlorothiazide 25 mg PO DAILY 06/21/19 06/21/19 History Past Med/Surg History Medical History Arthritis Encounter for removal of melba (Acute) 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 Surgical History History of cardiac cath 20 YRS AGO-DONE FOR CHEST PAIN-NO STENTS NEEDED History of colonoscopy History of esophagogastroduodenoscopy (EGD) Hx of cholecystectomy (Resolved) Intertrochanteric fracture of left femur Family History Grandmother (Paternal) Family history of diabetes mellitus Father Family history of esophageal cancer Other No significant family history Social History Preferred Language: Maltese 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 Ability: Effective 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 Beliefs That Will Affect Care: None Current Living Situation: Spouse Feels Safe at Home: Yes Smoking Status: Former smoker Second Hand Exposure: No ; Hx Alcohol Use: Yes Alcohol type: beer and wine Alcohol Intake Frequency Comment: 2 beers in 6 months Hx Substance Use: No Review of Systems Review of Systems: All systems reviewed & are unremarkable except as noted in HPI & below Physical Exam Physical Exam: Vitals noted and within normal limits with the exception of elevated BP, tachycardia, fever, requiring oxygen GENERAL: Awake, alert to person, place, and time, nontoxic-appearing, in no distress. HENT: Normocephalic, atraumatic. Nasal cannula in place. Mucus membranes appear dry. EYES: Normal conjunctiva. Sclera non-icteric. EOMI. NECK: Supple. Full range of motion. No JVD. RESPIRATORY: diminished at bases, some crackles on left side. Normal work of breathing. CARDIAC: sinus tachycardia. Extremities warm and well perfused, 2+ radial pulses bilaterally; ABDOMEN: Soft, non-distended. No tenderness to palpation in all four quadrants. No rebound or guarding. No masses. Bowel sounds are normal. LOWER EXTREMITIES: Inspection of calves reveal equal size bilaterally. They are non-tender. 1+ edema to ankles. No discoloration. NEURO: No gross focal motor deficits noted. Sensation in tact. CN II-XII candy sly in tact. . SKIN: Rash not present. No jaundice noted. Significant lesions not present. PSYCH: Appropriate mood and affect. Cooperative. is present at bedside. Exam as done by Melania Brian MD, Wheel Braider. Results & Data Vital Signs (Past 12 Hours) Vital Signs Temp Pulse Pulse Resp BP BP Pulse Ox 06/21/19 02:48 38.1 C H 115 H 24 155/74 H 93 06/21/19 02:32 112 H 16 90 06/21/19 02:04 117 H 24 163/77 H 90 06/21/19 01:42 90 06/21/19 01:38 2 L 06/21/19 01:35 38.9 C H 119 H 26 H 183/113 H 89 L Laboratory Results 06/21/19 06/21/19 06/21/19 Range/Units 01:48 01:48 01:28 WBC (4.8-10.8) K/uL RBC (4.7-6.1) M/uL Hgb (14.0-18.0) g/dL Hct (42-52) % MCV (80-100) fL MCH (25-34) pg MCHC (32-36) g/dL RDW Std Deviation (36.4-46.3) fL RDW Coeff of Gerber (11.5-14.5) % Plt Count (130-400) K/uL MPV (7.4-10.4) fL Immature Gran % (Auto) % Neut % (Auto) % Lymph % (Auto) % Sargent % (Auto) % Eos % (Auto) % Baso % (Auto) % Immature Gran # (Auto) (0.00-0.02) K/uL Neut # (Auto) (1.4-6.5) K/uL Lymph # (Auto) (1.2-3.4) K/uL Sargent # (Auto) (0.11-0.59) K/uL Eos # (Auto) (0-0.5) K/uL Baso # (Auto) (0-0.2) K/uL PT (9.0-12.0) Seconds INR (0.9-1.1) APTT (21.0-31.0) Seconds PTT Ratio Sodium (136-145) mmol/L Potassium (3.5-5.1) mmol/L Chloride (98-107) mmol/L Carbon Dioxide (21-32) mmol/L Anion Gap (3-11) BUN (7-18) mg/dl Creatinine (0.6-1.4) mg/dl Est Cr Clr Drug Dosing ml/min Est GFR ( Amer) Est GFR (Non-Af Amer) BUN/Creatinine Ratio (10-20) Glucose (70-99) mg/dl POC Lactic Acid Андрей 3.45 H (0.90-1.70) mmol/L Calcium (8.5-10.1) mg/dl Magnesium (1.8-2.4) mg/dl Total Bilirubin (0.2-1) mg/dl AST (15-37) U/L ALT (12-78) U/L Alkaline Phosphatase (45-117) U/L Troponin I (0-0.045) ng/ml NT-Pro-B Natriuret Pep (0-1800) pg/ml Total Protein (6.4-8.2) gm/dl Albumin (3.4-5.0) gm/dl Globulin (2.5-4.0) gm/dl Albumin/Globulin Ratio (0.9-2) Procalcitonin (0-0.5) ng/ml Urine Color Dark Yellow Urine Appearance Clear (Clear) Urine pH 5.5 (4.5-7.5) Ur Specific [place] 1.022 (1.000-1.030) Urine Protein 1+ H (Negative) Urine Glucose (UA) Negative (Negative) Urine Ketones Trace H (Negative) Urine Blood 3+ H (Negative) Urine Nitrite Negative (Negative) Urine Bilirubin Negative (Negative) Urine Urobilinogen Negative (Negative) Ur Leukocyte Esterase Negative (Negative) Urine WBC (Auto) 1-5 (0-5) /hpf Urine RBC (Auto) >30 H (0-4) /hpf U Hyaline Cast (Auto) 1-5 (0-5) /lpf U Epithel Cells (Auto) 20-30 H (0-5) /lpf Urine Bacteria (Auto) Negative (Negative) Influenza Type A (PCR) Neg for Influ A (Neg) Influenza Type B (PCR) Neg for Influ B (Neg) 06/21/19 06/21/19 06/21/19 Range/Units 01:10 01:10 01:10 WBC (4.8-10.8) K/uL RBC (4.7-6.1) M/uL Hgb (14.0-18.0) g/dL Hct (42-52) % MCV (80-100) fL MCH (25-34) pg MCHC (32-36) g/dL RDW Std Deviation (36.4-46.3) fL RDW Coeff of Gerber (11.5-14.5) % Plt Count (130-400) K/uL MPV (7.4-10.4) fL Immature Gran % (Auto) % Neut % (Auto) % Lymph % (Auto) % Sargent % (Auto) % Eos % (Auto) % Baso % (Auto) % Immature Gran # (Auto) (0.00-0.02) K/uL Neut # (Auto) (1.4-6.5) K/uL Lymph # (Auto) (1.2-3.4) K/uL Sargent # (Auto) (0.11-0.59) K/uL Eos # (Auto) (0-0.5) K/uL Baso # (Auto) (0-0.2) K/uL PT 12.4 H (9.0-12.0) Seconds INR 1.2 H (0.9-1.1) APTT 27.9 (21.0-31.0) Seconds PTT Ratio 1.0 Sodium 137 (136-145) mmol/L Potassium 3.0 L (3.5-5.1) mmol/L Chloride 103 (98-107) mmol/L Carbon Dioxide 30 (21-32) mmol/L Anion Gap 4.0 (3-11) BUN 30 H (7-18) mg/dl Creatinine 1.42 H (0.6-1.4) mg/dl Est Cr Clr Drug Dosing 52.9 ml/min Est GFR ( Amer) 53.3 Est GFR (Non-Af Amer) 46.0 BUN/Creatinine Ratio 20.9 H (10-20) Glucose 123 H (70-99) mg/dl POC Lactic Acid Андрей (0.90-1.70) mmol/L Calcium 8.8 (8.5-10.1) mg/dl Magnesium 2.1 (1.8-2.4) mg/dl Total Bilirubin 1.5 H (0.2-1) mg/dl AST 43 H (15-37) U/L ALT 45 (12-78) U/L Alkaline Phosphatase 77 (45-117) U/L Troponin I 0.063 H* (0-0.045) ng/ml NT-Pro-B Natriuret Pep 490 (0-1800) pg/ml Total Protein 7.8 (6.4-8.2) gm/dl Albumin 3.6 (3.4-5.0) gm/dl Globulin 4.2 H (2.5-4.0) gm/dl Albumin/Globulin Ratio 0.9 (0.9-2) Procalcitonin 8.61 H (0-0.5) ng/ml Urine Color Urine Appearance (Clear) Urine pH (4.5-7.5) Ur Specific [place] (1.000-1.030) Urine Protein (Negative) Urine Glucose (UA) (Negative) Urine Ketones (Negative) Urine Blood (Negative) Urine Nitrite (Negative) Urine Bilirubin (Negative) Urine Urobilinogen (Negative) Ur Leukocyte Esterase (Negative) Urine WBC (Auto) (0-5) /hpf Urine RBC (Auto) (0-4) /hpf U Hyaline Cast (Auto) (0-5) /lpf U Epithel Cells (Auto) (0-5) /lpf Urine Bacteria (Auto) (Negative) Influenza Type A (PCR) (Neg) Influenza Type B (PCR) (Neg) 06/21/19 Range/Units 01:10 WBC 14.41 H (4.8-10.8) K/uL RBC 4.89 (4.7-6.1) M/uL Hgb 16.1 (14.0-18.0) g/dL Hct 46.1 (42-52) % MCV 94.3 (80-100) fL MCH 32.9 (25-34) pg MCHC 34.9 (32-36) g/dL RDW Std Deviation 48.3 H (36.4-46.3) fL RDW Coeff of Gerber 14.1 (11.5-14.5) % Plt Count 165 (130-400) K/uL MPV 11.1 H (7.4-10.4) fL Immature Gran % (Auto) 0.5 % Neut % (Auto) 85.4 % Lymph % (Auto) 8.7 % Sargent % (Auto) 5.1 % Eos % (Auto) 0.2 % Baso % (Auto) 0.1 % Immature Gran # (Auto) 0.07 H (0.00-0.02) K/uL Neut # (Auto) 12.30 H (1.4-6.5) K/uL Lymph # (Auto) 1.25 (1.2-3.4) K/uL Sargent # (Auto) 0.74 H (0.11-0.59) K/uL Eos # (Auto) 0.03 (0-0.5) K/uL Baso # (Auto) 0.02 (0-0.2) K/uL PT (9.0-12.0) Seconds INR (0.9-1.1) APTT (21.0-31.0) Seconds PTT Ratio Sodium (136-145) mmol/L Potassium (3.5-5.1) mmol/L Chloride (98-107) mmol/L Carbon Dioxide (21-32) mmol/L Anion Gap (3-11) BUN (7-18) mg/dl Creatinine (0.6-1.4) mg/dl Est Cr Clr Drug Dosing ml/min Est GFR ( Amer) Est GFR (Non-Af Amer) BUN/Creatinine Ratio (10-20) Glucose (70-99) mg/dl POC Lactic Acid Андрей (0.90-1.70) mmol/L Calcium (8.5-10.1) mg/dl Magnesium (1.8-2.4) mg/dl Total Bilirubin (0.2-1) mg/dl AST (15-37) U/L ALT (12-78) U/L Alkaline Phosphatase (45-117) U/L Troponin I (0-0.045) ng/ml NT-Pro-B Natriuret Pep (0-1800) pg/ml Total Protein (6.4-8.2) gm/dl Albumin (3.4-5.0) gm/dl Globulin (2.5-4.0) gm/dl Albumin/Globulin Ratio (0.9-2) Procalcitonin (0-0.5) ng/ml Urine Color Urine Appearance (Clear) Urine pH (4.5-7.5) Ur Specific [place] (1.000-1.030) Urine Protein (Negative) Urine Glucose (UA) (Negative) Urine Ketones (Negative) Urine Blood (Negative) Urine Nitrite (Negative) Urine Bilirubin (Negative) Urine Urobilinogen (Negative) Ur Leukocyte Esterase (Negative) Urine WBC (Auto) (0-5) /hpf Urine RBC (Auto) (0-4) /hpf U Hyaline Cast (Auto) (0-5) /lpf U Epithel Cells (Auto) (0-5) /lpf Urine Bacteria (Auto) (Negative) Influenza Type A (PCR) (Neg) Influenza Type B (PCR) (Neg) Supervising Physician Co-Signing Physician Notes Pt seen/examined in conjunction with resident MD Arlette Brian. Orders and plan of admission formulated with resident. 79 y/o M Hx Lymphoma - in remission, HTN, GERD. Presenting with a cough, SOB, fevers, tachycardia. CXR with possible BL infiltrates. Labs are notable for WICHO and an elevated trop. OE AAO S1,2 R no murmurs CTA - could not appreciate wheezing or crackles NT, ND + BL edema No deficits P: Admitted with PNM and sepsis - placed on Ceftriaxone/Doxy and received a dose of Vanc in ER Elevated trop - likely 2/2 sepsis - echo ordered - no clinical evidence of ACS WICHO - IVF - recheck labs AM HTN - can cont atenolol with holding parameters Resident Activity Tracking Resident Involvement: Resident Care Provided Care Provided: Adult Hospital Medicine (1) Sepsis Acute respiratory failure type: with hypoxia Sepsis acute organ dysfunction status: with acute organ dysfunction Sepsis type: sepsis due to unspecified organism Severe sepsis shock status: without septic shock (2) Pneumonia Laterality: left Lung location: lower lobe of lung Pneumonia type: due to unspecified organism Qualified Code(s): J18.9 - Pneumonia, unspecified organism
[2019-06-21] MEDS ORDERED: ONDANSETRON INJ 2 MG/ML 2 ML VIAL IV PRN (04:34)
[2019-06-21] MEDS ORDERED: ACETAMINOPHEN 500 MG TAB PO PRN ×2 (04:34)
[2019-06-21] MEDS ORDERED: ACETAMINOPHEN 325 MG TAB PO PRN (04:34)
[2019-06-21] MEDS ORDERED: DOCUSATE SODIUM 100 MG CAP PO PRN (04:34)
[2019-06-21] MEDS ORDERED: METOPROLOL TARTRATE 1 MG/ML VIAL IV PRN (04:34)
[2019-06-21] MEDS ORDERED: ALUMINUM/MAGNESIUM SUSP 30 ML UDC PO PRN (04:34)
[2019-06-21] MEDS ORDERED: POLYETHYLENE (MIRALAX) 17 GM PACK PO PRN (04:34)
[2019-06-21] MEDS ORDERED: POTASSIUM CHLORIDE 20 MEQ TABCR PO STA (04:34)
[2019-06-21] MEDS ORDERED: MAGNESIUM HYDROXIDE SUSP 30 ML UDC PO PRN (04:34)
[2019-06-21] MEDS: D5W AND 1/2NSS + 20MEQ KCL 20 MEQ/1,000 ML BAG IV SCH ×3 (05:34→20:13)
[2019-06-21 06:07] LABS: Basophils # (auto) 0.01 K/uL (0-0.2); Basophils % (auto) 0.1 %; Eosinophils # (auto) 0.01 K/uL (0-0.5); Eosinophils % (auto) 0.1 %; Hematocrit (blood only) 38.2 % (42-52); Immature Granulocytes # (auto) 0.13 K/uL (0.00-0.02); Immature Granulocytes % (auto) 1.3 %; Lymphocytes # (auto) 0.62 K/uL (1.2-3.4); Mean Corpuscular Volume 94.1 fL (80-100); Mean Platelet Volume 10.2 fL (7.4-10.4); Monocytes # (auto) 0.88 K/uL (0.11-0.59); Monocytes % (auto) 8.5 %; Neutrophils # (auto) 8.71 K/uL (1.4-6.5); Platelet Count 107 K/uL (130-400); RDW Coefficient of Variation 13.9 % (11.5-14.5); RDW Standard Deviation 47.9 fL (36.4-46.3); Red Blood Count 4.06 M/uL (4.7-6.1); White Blood Count 10.36 K/uL (4.8-10.8)
[2019-06-21 06:10] LABS: BUN Creatinine Ratio 21.4 (10-20); Calcium 7.8 mg/dl (8.5-10.1); Creatinine Clr Calc Pharmacy 55.4 ml/min; Est GFR (African American) 56.2; Est GFR (Non-African American) 48.5; Potassium 2.6 mmol/L (3.5-5.1)
[2019-06-21] MEDS: DOXYCYCLINE HYCLATE 100 MG in DEXTROSE 5% 100 ML IV SCH ×2 (06:34→18:51)
--- NOTE | 2019-06-21 07:14 | XRay Report ---
SINGLE VIEW CHEST CLINICAL HISTORY: Dyspnea. FINDINGS: An AP, portable, upright chest radiograph is compared to study dated 06/07/2019. The examin ation is degraded by portable technique and patient rotation. The heart is enlarged. There is pulmona ry vascular congestion. Airspace consolidation is seen at both lung bases, left greater than right. N o large pleural effusion or pneumothorax is seen. The skeletal structures are osteopenic. The bony th orax is grossly intact. IMPRESSION: 1. Cardiomegaly with evidence of mild congestive failure. 2. There is bibasilar airspace consolidation, left greater than right. This could represent atelectas is versus pneumonia/aspiration pneumonitis. Clinical correlation will be required and radiographic fo llow-up to resolution is recommended. ACT 112: Negative or not required by law. Electronically signed by: Flavio Masterson M.D. 06/21/2019 7:13 AM
[2019-06-21] MEDS: PANTOprazole 40 MG TAB PO SCH (08:23)
[2019-06-21] MEDS: ATENOLOL 50 MG TABLET PO SCH (08:23)
[2019-06-21] MEDS: cefTRIAXone SODIUM 2,000 MG in DEXTROSE 5% 50 ML IV SCH (08:23)
[2019-06-21] MEDS: ENOXAPARIN INJ 30 MG/0.3 ML SYR SQ SCH (08:23)
[2019-06-21] MEDS: POTASSIUM CHLORIDE / WTR 10 MEQ/100 ML PLCT IV SCH ×2 (10:16→12:25)
[2019-06-21] MEDS: POTASSIUM CHLORIDE 20 MEQ TABCR PO SCH ×3 (10:40→20:14)
--- NOTE | 2019-06-22 00:35 | 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 Note ---
Date of Service: June 21, 2019 Saw patient on AM rounds. He was resting in the bed. Stated that he felt much better than at admission. Overall more energy. Still w/ poor appetite. Tele stable overnight. exam: gen - sickly but nontoxic, a/o x 3 mouth - MM slightly dry neck - no JVD heart - RRR, s1 s2 lungs - minimal rales left base; mildly decrease BS both bases; no wheeze; no in creased work of breathing abd - soft NT ND BS+ ext - no edema A/P: 1. LLL community-acquired pneumonia. Cont rocephin/doxy. Add incentive gabriela. 2. sepsis 2nd to #1 - improving. Follow blood cx's. 3. dehydration - 2nd to #1, #2 - improving; cont IVF. 4. hypokalemia - replace IV/PO; repeat BMP am. 2nd to HCTZ use on chronic basis. If he remains on this will need daily supplementation at home. 5. DVT proph - lovenox. 6. HTN - cont atenolol. Matti Chavira MD
[2019-06-22] MEDS: D5W AND 1/2NSS + 20MEQ KCL 20 MEQ/1,000 ML BAG IV SCH ×3 (02:29→14:11)
[2019-06-22] MEDS: DOXYCYCLINE HYCLATE 100 MG in DEXTROSE 5% 100 ML IV SCH ×2 (06:25→17:33)
[2019-06-22] MEDS: ENOXAPARIN INJ 30 MG/0.3 ML SYR SQ SCH (07:45)
[2019-06-22] MEDS: POTASSIUM CHLORIDE 20 MEQ TABCR PO SCH ×2 (07:45→15:19)
[2019-06-22] MEDS: PANTOprazole 40 MG TAB PO SCH (07:46)
[2019-06-22] MEDS: ATENOLOL 50 MG TABLET PO SCH (07:46)
[2019-06-22] MEDS: cefTRIAXone SODIUM 2,000 MG in DEXTROSE 5% 50 ML IV SCH (07:49)
[2019-06-22 08:07] LABS: BUN Creatinine Ratio 14.8 (10-20); Calcium 8.7 mg/dl (8.5-10.1); Creatinine Clr Calc Pharmacy 67.7 ml/min; Est GFR (African American) 71.8; Est GFR (Non-African American) 61.9; Potassium 4.2 mmol/L (3.5-5.1); Troponin I 0.099 ng/ml (0-0.045)
--- NOTE | 2019-06-22 14:43 | Hospitalist Progress Note ---
Date of Service June 22, 2019 Assessment & Plan (1) Pneumonia: CXR shows bibasilar airspace consolidation, left greater than right. This could represent atelectasis versus pneumonia/aspiration pneumonitis. - WBC down today. Feeling better. - Continue abx (2) Sepsis: (3) Elevated troponin: Mild bump from 0.06 to 0.1, then down. Demand ischemia. - Outpatient follow up (4) Hypertension: BP stable. - Continue beta-elizabeth (5) Acute kidney injury: Cr up to 1.4. - Now 1.1 (6) Thrombocytopenia: All counts dropped. Possibly dilutional. Low concern for HIT given time- frame. 4T HIT score of 1. - Monitor Subjective Feeling better today. He reports his breathing and cough having improved quite a bit compared to yesterday. Reports no fevers/chills, chest pain, shortness of breath, abdominal pain, nausea, or vomiting. Physical Exam Constitutional: WD/WN, vitals as above Eyes: EOM intact bilaterally; no conjunctival abnormality ENMT: external ear and nose normal, oropharynx normal Neck: trachea midline, no thyromegaly normal visual inspection Respiratory: normal respiratory effort, lungs clear to auscultation no respiratory distress Cardiovascular: RRR, no murmur, no edema Gastrointestinal (Abdomen): Inspection/Auscultation: abdomen normal to inspection; abdomen not distended Musculoskeletal: no cyanosis or clubbing, extremities motor strength 5/5 Skin: no rashes, warm and dry Neurologic: moves all extremities and awake Psychiatric: Orientation: alert, oriented to person and cooperative Results & Data Vital Signs (Past 12 Hours) Vital Signs Temp Pulse Pulse Resp BP Pulse Ox 06/22/19 11:03 36.8 C 83 19 166/91 H 95 06/22/19 08:00 80 06/22/19 07:13 36.6 C 76 20 169/82 H 95 06/22/19 03:47 36.7 C 73 18 145/76 H 95 PG Care Time/CCT Total # of Minutes Spent Total Time Spent with Patient: Total time spent is greater than 50% in coordination of care (as documented) at patient's floor/unit and/or counseling patient: (1) Sepsis Acute respiratory failure type: with hypoxia Sepsis acute organ dysfunction status: with acute organ dysfunction Sepsis type: sepsis due to unspecified organism Severe sepsis acute organ dysfunction type: acute respiratory failure Severe sepsis shock status: without septic shock Qualified Code(s): A41.9 - Sepsis, unspecified organism; R65.20 - Severe sepsis without septic shock; J96.01 - Acute respiratory failure with hypoxia (2) Pneumonia Laterality: left Lung location: lower lobe of lung Pneumonia type: due to unspecified organism Qualified Code(s): J18.9 - Pneumonia, unspecified organism
[2019-06-23] MEDS: DOXYCYCLINE HYCLATE 100 MG in DEXTROSE 5% 100 ML IV SCH ×2 (06:43→16:25)
[2019-06-23 07:48] LABS: Hematocrit (blood only) 39.7 % (42-52); Hemoglobin 13.3 g/dL (14.0-18.0); Mean Corpuscular Hemoglobin 32.1 pg (25-34); Mean Corpuscular Hgb Conc 33.5 g/dL (32-36); Mean Corpuscular Volume 95.9 fL (80-100); Mean Platelet Volume 10.9 fL (7.4-10.4); Platelet Count 157 K/uL (130-400); RDW Coefficient of Variation 13.9 % (11.5-14.5); RDW Standard Deviation 48.7 fL (36.4-46.3); Red Blood Count 4.14 M/uL (4.7-6.1); White Blood Count 6.89 K/uL (4.8-10.8)
[2019-06-23] MEDS: PANTOprazole 40 MG TAB PO SCH (08:14)
[2019-06-23] MEDS: ATENOLOL 50 MG TABLET PO SCH (08:15)
[2019-06-23] MEDS: ENOXAPARIN INJ 30 MG/0.3 ML SYR SQ SCH (08:15)
[2019-06-23] MEDS: cefTRIAXone SODIUM 2,000 MG in DEXTROSE 5% 50 ML IV SCH (08:18)
[2019-06-23 08:21] LABS: BUN Creatinine Ratio 15.7 (10-20); Creatinine Clr Calc Pharmacy 72.5 ml/min; Est GFR (African American) 78.6; Est GFR (Non-African American) 67.8
[2019-06-23 08:49] LABS: Potassium 4.1 mmol/L (3.5-5.1)
[2019-06-23 08:50] LABS: Magnesium 1.8 mg/dl (1.8-2.4)
--- NOTE | 2019-06-23 10:49 | Hospitalist Progress Note ---
Date of Service June 23, 2019 Assessment & Plan (1) Pneumonia: Bibasilar airspace consolidation, left greater than right. Clinically improved. Repeat cxr today to ensure no complicating CHF. Blood cx's negative to date. stop IV abx transition to PO cefdinir and doxy to complete course (2) Sepsis: Resolved. (3) Elevated troponin: Mild bump from 0.06 to 0.1, then down. Likely myocardial demand ischemia in setting of sepsis. Echo w/ preserved EF and normal wall motion. (4) Hypertension: Restarted atenolol prior. Add back micardis today. Likely HCTZ tomorrow. (5) Acute kidney injury: resolved sepsis-associated (6) Thrombocytopenia: Likely sepsis-associated Now resolved; count 157 today (7) Diarrhea: c diff neg abx-associated diarrhea add lactinex (8) Hypokalemia: resolved was 2nd to HCTZ use pre-hospital and poor oral intake needs chronic K supplementation at d/c if HCTZ use continues (9) Hemoptysis: despite such his H/H remain stable by his report it sounds low volume asked nursing staff to provide sputum cup and have him spit all sputum into cup to quantitate the amount if this worsens or persists then formal pulmonary consultation (10) DVT prophylaxis: lovenox PT/Ot evals ordered encouraged more ambulation if cleared by PT/OT can return home tomorrow updated by phone today Subjective patient overall feeling better. states he is seeing streaks of blood periodically when he coughs up sputum. by his estimation it is small volume. appetite improving. has spent much of the last 2-3 days in bed. states "it's hard to get out of bed when you have an IV." tele stable overnight. no dyspnea. no chest pain. Review of Systems Constitutional: + fatigue; no fever, no chills and no anorexia Respiratory: no dyspnea and no dyspnea on exertion Cardiovascular: no chest pain Gastrointestinal: + diarrhea/loose stools; no abdominal pain, no nausea and no vomiting Physical Exam Constitutional: well developed and well nourished; no acute distress and no altered mental status ENMT: external ear and nose normal, oropharynx normal Respiratory: no respiratory distress Auscultation: + rales (bases); no wheezes Cardiovascular: Rate/Rhythm: regular rate and regular rhythm Heart Sounds: normal S1 and normal S2; no murmur Vessels: posterior tibial pulses present and dorsalis pedis pulses present; no JVD Extremities: no edema Gastrointestinal (Abdomen): normal bowel sounds, soft, nontender, no hepatosplenomegaly Psychiatric: A+Ox3, euthymic affect Results & Data Vital Signs (Past 12 Hours) Vital Signs Temp Pulse Resp BP BP Pulse Ox 06/23/19 07:30 36.7 C 65 20 177/86 H 94 06/23/19 03:59 36.5 C 78 20 176/93 H 95 06/22/19 23:31 36.8 C 79 18 169/90 H 94 Laboratory Results Laboratory Results - last 24 hr 06/23/19 06/23/19 06/23/19 06:14 06:14 08:26 WBC 6.89 RBC 4.14 L Hgb 13.3 L Hct 39.7 L MCV 95.9 MCH 32.1 MCHC 33.5 RDW Std Deviation 48.7 H RDW Coeff of Gerber 13.9 Plt Count 157 MPV 10.9 H Sodium 138 Potassium 4.1 Chloride 109 H Carbon Dioxide 20 L Anion Gap 10.0 BUN 16 Creatinine 1.03 Est Cr Clr Drug Dosing 72.5 Est GFR ( Amer) 78.6 Est GFR (Non-Af Amer) 67.8 BUN/Creatinine Ratio 15.7 Glucose 106 H Calcium 9.0 Magnesium 1.8 Stl C. diff Tox B Gene 06/23/19 09:45 WBC RBC Hgb Hct MCV MCH MCHC RDW Std Deviation RDW Coeff of Gerber Plt Count MPV Sodium Potassium Chloride Carbon Dioxide Anion Gap BUN Creatinine Est Cr Clr Drug Dosing Est GFR ( Amer) Est GFR (Non-Af Amer) BUN/Creatinine Ratio Glucose Calcium Magnesium Stl C. diff Tox B Gene Pending PG Care Time/CCT Total # of Minutes Spent Total Time Spent with Patient: Total time spent is greater than 50% in coordination of care (as documented) at patient's floor/unit and/or counseling patient: (1) Pneumonia Laterality: left Lung location: lower lobe of lung Pneumonia type: due to unspecified organism Qualified Code(s): J18.9 - Pneumonia, unspecified organism (2) Sepsis Acute respiratory failure type: with hypoxia Sepsis acute organ dysfunction status: with acute organ dysfunction Sepsis type: sepsis due to unspecified organism Severe sepsis acute organ dysfunction type: acute respiratory failure Severe sepsis shock status: without septic shock Qualified Code(s): A41.9 - Sepsis, unspecified organism; R65.20 - Severe sepsis without septic shock; J96.01 - Acute respiratory failure with hypoxia (3) Hypertension Hypertension type: essential hypertension Qualified Code(s): I10 - Essential (primary) hypertension (4) Diarrhea Diarrhea type: unspecified type Qualified Code(s): R19.7 - Diarrhea, unspecified
[2019-06-23] MEDS: LACTOBACILLUS ACIDOPHILUS (FLORANEX) TAB PO SCH ×2 (11:58→16:25)
[2019-06-23] MEDS: TELMISARTAN 40 MG TAB PO SCH (11:58)
--- NOTE | 2019-06-23 12:00 | XRay Report ---
XR chest 2V PA/lateral HISTORY: pneumonia; b/l basilar rales COMPARISON: Chest 06/21/2019. FINDINGS: No pneumothorax. The heart remains mildly enlarged. Diffuse interstitial thickening and bib asilar densities have slightly improved. There are trace bilateral pleural effusions. Prior cholecyst ectomy. IMPRESSION: 1. Slight improvement in the diffuse interstitial thickening and bibasilar densities. This could repr esent resolving edema or pneumonia. 2. Trace bilateral pleural effusions, unchanged. ACT 112: Negative or not required by law. Electronically signed by: Srinivasa Andrea M.D. 06/23/2019 11:59 AM
[2019-06-23] MEDS ORDERED: FUROSEMIDE 20 MG TAB PO ONE (16:45)
[2019-06-24 06:15] LABS: BUN Creatinine Ratio 17.8 (10-20); Calcium 8.7 mg/dl (8.5-10.1); Creatinine Clr Calc Pharmacy 65.7 ml/min; Est GFR (African American) 70.3; Est GFR (Non-African American) 60.6; Potassium 3.7 mmol/L (3.5-5.1)
[2019-06-24] MEDS: TELMISARTAN 40 MG TAB PO SCH (07:29)
[2019-06-24] MEDS: ENOXAPARIN INJ 30 MG/0.3 ML SYR SQ SCH (07:30)
[2019-06-24] MEDS: PANTOprazole 40 MG TAB PO SCH (07:30)
[2019-06-24] MEDS: LACTOBACILLUS ACIDOPHILUS (FLORANEX) TAB PO SCH ×3 (07:30→17:04)
[2019-06-24] MEDS: ATENOLOL 50 MG TABLET PO SCH (08:31)
[2019-06-24] MEDS ORDERED: hydroCHLOROthiazide 25 MG TAB PO SCH (09:00)
[2019-06-24] MEDS ORDERED: CEFDINIR 300 MG CAP PO SCH (09:00)
[2019-06-24] MEDS ORDERED: DOXYCYCLINE HYCLATE 100 MG CAP PO SCH (09:00)
--- NOTE | 2019-06-24 16:30 | Discharge Summary ---
Date of Service date of admission - June 21, 2019 date of discharge - June 24, 2019 Admission HPI Per Admitting Provider This is an 79-year-old male with past medical history for MALT lymphoma in remission, hypertension, arthritis --who presents to the ED after acute onset of rigors, chills, shortness of breath and productive cough for 1 day. is at the bedside and also offers history. She states he ate a normal lunch yesterday but then quickly felt ill with chills and malaise. He laid down and rested most of the day. 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 He states he did get specks of blood in the mucus that he brought up. He also notes some loose stools, although states he does occasionally get loose stools from time to time anyway. He also noted a darkening of his urine over the last day. He denies burning with urination. He notes he has some lower back pain but this is not uncommon for him as he has arthritis and takes 2 Naprosyn daily. Past medical history: MALT lymphoma in remission, last seen by oncology in April 2019 for surveillance, no signs or symptoms of recurrent disease. He is 2 years out from the end of radiation. Hypertension. Osteoarthritis. GERD. Past surgical history:History of cardiac cath 20 yrs ago, no stents placed. (EGD). cholecystectomy. Intertrochanteric fracture of left femur. Social history: lives with . Former smoker. Social etoh. No drugs. ED course: Aspirin 324 mg, 2L NSS, duoneb, cefepime and vancomycin Principal Diagnosis bilateral lower lobe pneumonia Discharge Exam Constitutional well developed and well nourished; no acute distress and no altered mental status ENMT external ear and nose normal, oropharynx normal Respiratory no respiratory distress Auscultation: + rales (bases); no wheezes Cardiovascular Rate/Rhythm: regular rate and regular rhythm Heart Sounds: normal S1 and normal S2; no murmur Vessels: posterior tibial pulses present and dorsalis pedis pulses present; no JVD Extremities: no edema Gastrointestinal (Abdomen) normal bowel sounds, soft, nontender, no hepatosplenomegaly Psychiatric A+Ox3, euthymic affect Discharge Data Allergies Allergy/AdvReac Type Severity Reaction Status Date / Time No Known Allergies Allergy Unverified 06/29/19 14:28 Consultations PT, OT Hospital Course (1) Pneumonia: Bibasilar pneumonia, left greater than right. Community-acquired. Clinically improved with IV antibiotics. Blood cx's negative while hospitalized. Was transitioned to PO cefdinir and doxycycline to complete his antibiotic course. Never required oxygen while hospitalized. (2) Sepsis: Resolved. 2nd to pneumonia. (3) Elevated troponin: Mild bump from 0.06 to 0.1, then down. Likely myocardial demand ischemia in setting of sepsis. Echo w/ preserved EF and normal wall motion. (4) Hypertension: Poorly controlled. Reviewing records and speaking with patient it sounds as if his BPs are always uncontrolled. He will continue atenolol, micardis, and HCTZ. He had been taking 50mg of HCTZ previously. Asked him to lower such to 25mg/day. In addition to the above, if his BPs remain elevated, he was instructed to initiate amlodipine 5mg once daily. He was encouraged to check his BPs daily at home. Follow-up with PCP for this issue. (5) Acute kidney injury: resolved sepsis-associated discharge Cr was 1.1 (6) Thrombocytopenia: Likely sepsis-associated. Now resolved; count 157 prior to discharge. (7) Diarrhea: c diff neg abx-associated diarrhea added lactinex (8) Hypokalemia: resolved was 2nd to HCTZ use pre-hospital and poor oral intake as well needs chronic K supplementation at d/c due to HCTZ use as noted above his HCTZ dose was reduced from 50mg/day to 25mg/day (9) Hemoptysis: low-volume. despite such his H/H remained stable while hospitalized. The hemoptysis improved prior to discharge. He was counseled that if the hemoptysis was to recur or worsen he should see pulmonary right away for additional testing. Small amount of blood likely due to pneumonia. Total Time Total Time Spent Total Time Spent (In Minutes): 35 Total Time Includes: Examination of the Patient, Discharge Planning and Medication Reconciliation Discharge Plan Discharge Items Patient Disposition: Home - Self-Care Reason For Visit: PNEUMONIA Discharge Diagnosis: 1. bilateral lower lobe pneumonia 2. high blood pressure 3. low potassium Activity: As commented below Activity Comment: take it easy the next 2-3 days then gradually increase activities Driving/Machine Use: Resume 1 day after discharge Non-emergency contact: Primary Care Provider Call non-emergency contact if: you have any medication questions, your symptoms worsen and you have a fever Follow-up/Referrals: Orlando Altman MD [Primary Care Provider] - 06/30/19 1:30 pm (Please, follow up at Dr. Altman's office with his associate, Prabha PAYAN, on June 30 at 1:30 pm. *If you need to change this appointment, call their office at [phone].) Diet: Heart Healthy Addtl Attending Provider Instructions: You were treated for bilateral lower lobe pneumonia while hospitalized. Your flu testing was negative. Your blood cultures remained negative (no infection in blood stream). Your fevers resolved and your symptoms gradually improved. You received antibiotics for the pneumonia while here and will need to complete 4 more days of them after discharge. Your antibiotics are - * cefdinir 300mg twice daily x 4 days; first dose TONIGHT * doxycycline 100mg twice daily x 4 days; first dose TONIGHT * occasionally the doxycycline causes heartburn; it can theoretically cause a rash if you go out in the sun while taking it but this should not be a problem due to the winter time * take a probiotic supplement once daily for diarrhea * you can take immodium as needed for diarrhea, if desired Throughout your stay your blood pressures were labile and high. During a previous ER visit your blood pressures were also high. At this time we recommend the following - * atenolol 50mg once daily for blood pressure * telmisartan-hydrochlorothiazide 1 tab daily for blood pressure * potassium supplement once daily Check your blood pressures DAILY at home. Best to check them mid-morning, about 1-2 hours after taking your morning medication. If your systolic BP (top number) consistently stays above 150 please START amlodipine 5mg once daily. I sent this prescription in for you. Take at bedtime if you start the medication. Common side effects of amlodipine - constipation, and occasionally swelling in feet. Follow-up -- see Dr Altman next week as scheduled Return to [facility] if -- * you have recurrent fevers over 100.5 degrees * you begin to see large amounts of blood in your spit * you have shortness of breath or chest pains * you have severe headaches * you have diarrhea * any other concerns Pending Studies at Discharge: No Stand-Alone Forms: My [facility], Smoking Cessation Medications and DC Order Prescriptions: New Saccharomyces boulardii 250 mg capsule 250 mg PO DAILY 10 Days Qty: 10 RF: 0 amlodipine 5 mg tablet 5 mg PO DAILY Qty: 30 RF: 2 potassium chloride 10 mEq tablet extended release 10 meq PO DAILY Qty: 30 RF: 2 Continued atenolol 50 mg tablet 50 mg PO QAM Qty: 90 RF: 3 vitamin B complex Capsule 1 cap PO QPM RF: 0 pantoprazole 40 mg tablet,delayed release (DR/EC) 40 mg PO QAM RF: 0 telmisartan-hydrochlorothiazid 80-25 mg tablet 1 tab PO QAM RF: 0 ascorbic acid (vitamin C) [Vitamin C] 1,000 mg Tablet 1,000 mg PO QAM RF: 0 vitamin E 400 unit Capsule 400 unit PO QPM RF: 0 cholecalciferol (vitamin D3) [Vitamin D3] 1,000 unit Tablet,Chewable 5,000 unit PO QPM RF: 0 coQ10 (ubiquinol) 100 mg Capsule 100 mg PO QPM RF: 0 [place] 3-6-9 1,200 mg Capsule 1 cap PO BID RF: 0 multivitamin Tablet 1 tab PO QAM RF: 0 apple cider vinegar 600 mg Capsule 600 mg PO QPM RF: 0 turmeric 400 mg Capsule 1,000 mg PO QPM RF: 0 acetaminophen [Tylenol Extra Strength] 500 mg Tablet 1,000 mg PO Q6H PRN (Reason: Pain) RF: 0 Discontinued docusate sodium [Stool Softener] 100 mg Capsule 100 mg PO QPM RF: 0 naproxen sodium [Aleve] 220 mg Capsule 440 mg PO QAM RF: 0 hydrochlorothiazide 25 mg Tablet 25 mg PO DAILY RF: 0 Discharge Orders: Discharge Order (Routine); Ordered 06/24/19 Ordered By: Matti Chavira Admission Data Admit Date/Time: 06/21/19 03:38 Attending Provider: Matti Chavira Admit Provider: Melania Brian Primary Care Provider: Orlando Altman Other Providers: Leander Perez Other Interventions: Discharge Summary Assessment (RN) Last Done: 06/24/19 16:46 DC Date/Time DO NOT enter until pt leaves facility: 06/24/19 17:35
--- NOTE | 2019-06-25 07:34 | Electrocardiogram Report ---
Test Reason : Blood Pressure : / mmHG Vent. Rate : 067 BPM Atrial Rate : 067 BPM P-R Int : 200 ms QRS Dur : 082 ms QT Int : 412 ms P-R-T Axes : 033 -11 002 degrees QTc Int : 435 ms Normal sinus rhythm When compared with ECG of 21-JUN-2019 01:19, Vent. rate has decreased BY [address] no longer depressed in Lateral leads Confirmed by Natanael Purcell ([id number]) on 06/25/2019 7:33:56 AM Referred By: REFERRED SELF Confirmed By:Herminio Purcell
== END 2019-06-24 17:35 | disposition home or self-care (01) | DRG 871 ==
LOC: ED 01:12 → SUATTDRO 03:38 → 2S 03:38

== ENCOUNTER 2019-07-05 09:19 | Inpatient (IN) ==
--- NOTE | 2019-06-06 13:49 | PAT Medication Instructions ---
Medication Instructions Date of Service June 06, 2019 Home Medications acetaminophen [Tylenol Extra Strength] 1,000 mg PO Q6H PRN apple cider vinegar 600 mg PO QPM ascorbic acid (vitamin C) [Vitamin C] 1,000 mg PO QAM atenolol 50 mg PO QAM cholecalciferol (vitamin D3) [Vitamin D3] 5,000 unit PO QPM coQ10 (ubiquinol) 100 mg PO QPM docusate sodium [Stool Softener] 100 mg PO QPM fish,bora,flax oils-om3,6,9no1 [[place] 3-6-9] 1 cap PO BID multivitamin 1 tab PO QAM naproxen sodium [Aleve] 440 mg PO QAM pantoprazole 40 mg PO QAM telmisartan-hydrochlorothiazid 1 tab PO QAM turmeric 1,000 mg PO QPM vitamin B complex 1 cap PO QPM vitamin E 400 unit PO QPM ASK your surgeon for instructions naproxen sodium [Aleve] 440 mg PO QAM STOP taking 2 weeks before surgery apple cider vinegar 600 mg PO QPM coQ10 (ubiquinol) 100 mg PO QPM fish,bora,flax oils-om3,6,9no1 [[place] 3-6-9] 1 cap PO BID turmeric 1,000 mg PO QPM vitamin E 400 unit PO QPM DO NOT take the morning of surgery ascorbic acid (vitamin C) [Vitamin C] 1,000 mg PO QAM multivitamin 1 tab PO QAM telmisartan-hydrochlorothiazid 1 tab PO QAM Take morning of surgery With a small sip of water, OTHERWISE NOTHING TO EAT OR DRINK AFTER MIDNIGHT: acetaminophen [Tylenol Extra Strength] 1,000 mg PO Q6H PRN (if needed, may be taken up to four hours before surgery) atenolol 50 mg PO QAM pantoprazole 40 mg PO QAM Take evening before surgery acetaminophen [Tylenol Extra Strength] 1,000 mg PO Q6H PRN (if needed) cholecalciferol (vitamin D3) [Vitamin D3] 5,000 unit PO QPM docusate sodium [Stool Softener] 100 mg PO QPM vitamin B complex 1 cap PO QPM Other Notes If you have any questions please call us at [phone] or [phone] or [phone] or [phone]
--- NOTE | 2019-06-07 12:10 | Anesthesiology Consultation ---
Date of Service June 07, 2019 Assessment & Plan (1) Encounter for pre-operative examination: Patient was admitted to [facility] for pneumonia with hypoxia and elevated troponins 06/21-06/24. Cardiology clearance 06/28/2019: After being discharged from the hospital, patient has resumed his usual activities and has not experienced any limiting cardiopulmonary symptoms. Therefore based on his functional status without limiting cardiopulmonary symptoms, extenuating circumstances of his mild troponin bump, and his normal to hyperdynamic LV systolic function without wall motion abnormalities -- patient is an acceptable surgical risk to proceed with left total hip revision as scheduled. There is no need for further cardiac evaluation at this time. PCP Clearance 06/29/19: "He is doing well other than symptoms of degenerative arthritis of the left hip. He recently had pneumonia but has recovered from that. He is back to his baseline. He has already had cardiology clearance. There are no contraindications to surgery from a general medical standpoint." Chart Review Chart Review: Acceptable Risk for Surgery (pending surgeon ordered PCP clearance) and Patient seen in Pre Admission Testing Teaching & Discussion Instructed NPO after midnight before surgery, except medications with 15 cc of water. Medication instructions provided according to the PAT guidelines. History Surgery Operation Date: 07/05/19 07:45 Proposed Procedures p Left Total Hip Arthroplasty, Hardware Removal - Reuben Sneed DO Height/Weight Height: 6 ft 1 in Weight: 109.2 kg Allergies Allergy/AdvReac Type Severity Reaction Status Date / Time No Known Allergies Allergy Unverified 06/29/19 14:28 Medications Home Medications Medication Instructions Recorded Confirmed Last Taken [place] 3-6-9 1 cap PO BID 05/31/19 06/29/19 Unknown acetaminophen [Tylenol Extra 1,000 mg PO Q6H PRN 05/31/19 06/29/19 Unknown Strength] apple cider vinegar 600 mg PO QPM 05/31/19 06/29/19 Unknown ascorbic acid (vitamin C) [Vitamin 1,000 mg PO QAM 05/31/19 06/29/19 Unknown C] cholecalciferol (vitamin D3) 5,000 unit PO QPM 05/31/19 06/29/19 Unknown [Vitamin D3] coQ10 (ubiquinol) 100 mg PO QPM 05/31/19 06/29/19 Unknown multivitamin 1 tab PO QAM 05/31/19 06/29/19 Unknown pantoprazole 40 mg PO QAM 05/31/19 06/29/19 Unknown telmisartan-hydrochlorothiazid 1 tab PO QAM 05/31/19 06/29/19 Unknown turmeric 1,000 mg PO QPM 05/31/19 06/29/19 Unknown vitamin B complex 1 cap PO QPM 05/31/19 06/29/19 Unknown vitamin E 400 unit PO QPM 05/31/19 06/29/19 Unknown atenolol 50 mg tablet 50 mg PO QAM #90 tab 06/14/19 06/29/19 Unknown Saccharomyces boulardii 250 mg PO DAILY 10 Days #10 cap 06/24/19 06/29/19 Unknown amlodipine 5 mg PO DAILY #30 tab 06/24/19 06/29/19 Unknown potassium chloride 10 meq PO DAILY #30 tab 06/24/19 06/29/19 Unknown Past Medical History Medical History Arthritis 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 Gallbladder disease GERD (gastroesophageal reflux disease) History of IBS NO MEDS Hypertension Kidney stones Pneumonia Treated at [facility] 06/21-06/24. Mildly elevated troponins while inpatient ruled secondary to demand ischemia from acute illness/tachycardia/hypoxia. Temporomandibular joint disorder CLICKS LEFT SIDE HAS NOT LOCKED Exercise / Class Metabolic Activity II 4-5 Yardwork/Stairs/Walk up hill (Denies CP or SOB with 1 FOS, "3 flights maybe") Past Family History Family History Grandmother (Paternal) Family history of diabetes mellitus Father Family history of esophageal cancer Other No significant family history Past Surgical History Surgical History History of cardiac cath 20 YRS AGO-DONE FOR CHEST PAIN-NO STENTS NEEDED History of colonoscopy History of esophagogastroduodenoscopy (EGD) Hx of cholecystectomy Intertrochanteric fracture of left femur Past Anesthesia History No Hx of Anesthesia Complications and No Family Hx of Anesthesia Complications History of PONV No Hx of PONV and No Hx of Motion Sickness Social History Smoking Status: Former smoker Do You Dip or Chew Tobacco: No (QUIT ) Smoking End Date: QUIT Hx Alcohol Use: Yes Alcohol type: beer and wine alcohol intake frequency: holidays/special occasions only Hx Substance Use: No Review of Systems Pt denies any recent chest pain, shortness of breath, palpitations, cough, fever or URI. +sinus congestion/drainage Physical Exam Vital Signs BP: 138/80 P: 60bpm SPO2: 98% RA T: 98.3 F R: 12 ENMT Mouth: + dentures, + edentulous and + small oral opening Thyromental Distance: > or= 3.5 Finger Breadths (3.5) Mallampati Class: I Neck + limited neck extension Significant redundant anterior tissue Respiratory normal respiratory effort Auscultation: lungs clear to auscultation bilaterally Cardiovascular Rate/Rhythm: regular rate and regular rhythm Heart Sounds: no murmur Vessels: no carotid bruit Testing Laboratory Results 06/07/19 12:26 06/07/19 12:26 PT 11.6 Seconds (9.0-12.0) 06/07/19 12:26 INR 1.1 (0.9-1.1) 06/07/19 12:26 APTT 27.6 Seconds (21.0-31.0) 06/07/19 12:26 Hemoglobin A1c 6.2 % (4.5-5.6) H 06/07/19 12:26 Urine Color Yellow 06/07/19 Unknown Urine Appearance Clear (Clear) 06/07/19 Unknown Urine pH 6.5 (4.5-7.5) 06/07/19 Unknown Ur Specific [place] 1.022 (1.000-1.030) 06/07/19 Unknown Urine Protein Negative (Negative) 06/07/19 Unknown Urine Glucose (UA) Negative (Negative) 06/07/19 Unknown Urine Ketones Negative (Negative) 06/07/19 Unknown Urine Nitrite Negative (Negative) 06/07/19 Unknown Ur Leukocyte Esterase Negative (Negative) 06/07/19 Unknown Blood Type O Negative 06/07/19 12:26 Antibody Screen NEGATIVE 06/07/19 12:26 Electrocardiogram Date: 06/07/19 Findings: + SB @ (59) T wave abnormality, consider lateral ischemia. Chest X-Ray Date: 12/17/19 Findings: + NAD Echocardiogram Date: 06/21/19 EF: 60-65% Left ventricle normal in size. Moderate concentric LVH. Left ventricular systolic function and wall motion is normal. RVSP is normal. No significant valvular heart disease.
--- NOTE | 2019-06-07 12:20 | PAT Medication Instructions ---
Medication Instructions Date of Service June 07, 2019 Home Medications acetaminophen [Tylenol Extra Strength] 1,000 mg PO Q6H PRN apple cider vinegar 600 mg PO QPM ascorbic acid (vitamin C) 1,000 mg PO QAM atenolol 50 mg PO QAM cholecalciferol (vitamin D3) 5,000 unit PO QPM coQ10 (ubiquinol) 100 mg PO QPM docusate sodium [Stool Softener] 100 mg PO QPM [[place] 3-6-9] 1 cap PO BID multivitamin 1 tab PO QAM naproxen sodium [Aleve] 440 mg PO QAM pantoprazole 40 mg PO QAM telmisartan-hydrochlorothiazid 1 tab PO QAM turmeric 1,000 mg PO QPM vitamin B complex 1 cap PO QPM vitamin E 400 unit PO QPM ASK your surgeon for instructions naproxen sodium [Aleve] 440 mg PO QAM STOP taking 2 weeks before surgery apple cider vinegar 600 mg PO QPM coQ10 (ubiquinol) 100 mg PO QPM [[place] 3-6-9] 1 cap PO BID turmeric 1,000 mg PO QPM vitamin E 400 unit PO QPM DO NOT take the morning of surgery ascorbic acid (vitamin C) 1,000 mg PO QAM multivitamin 1 tab PO QAM telmisartan-hydrochlorothiazid 1 tab PO QAM Take morning of surgery With a small sip of water, OTHERWISE NOTHING TO EAT OR DRINK AFTER MIDNIGHT: acetaminophen [Tyleno .pain l Extra Strength] 1,000 mg PO Q6H PRN atenolol 50 mg PO QAM pantoprazole 40 mg PO QAM Take evening before surgery acetaminophen [Tylenol Extra Strength] 1,000 mg PO Q6H PRN (if needed) cholecalciferol (vitamin D3) 5,000 unit PO QPM docusate sodium [Stool Softener] 100 mg PO QPM vitamin B complex 1 cap PO QPM Other Notes If you have any questions please call us at [phone] or [phone] or [phone] or [phone]
[2019-06-07 12:55] LABS: Basophils # (auto) 0.01 K/uL (0-0.2); Basophils % (auto) 0.2 %; Eosinophils % (auto) 2.2 %; Hematocrit (blood only) 42.9 % (42-52); Hemoglobin 14.8 g/dL (14.0-18.0); Immature Granulocytes # (auto) 0.02 K/uL (0.00-0.02); Immature Granulocytes % (auto) 0.4 %; Lymphocytes # (auto) 0.97 K/uL (1.2-3.4); Mean Corpuscular Hemoglobin 32.6 pg (25-34); Mean Corpuscular Hgb Conc 34.5 g/dL (32-36); Mean Corpuscular Volume 94.5 fL (80-100); Mean Platelet Volume 10.5 fL (7.4-10.4); Monocytes # (auto) 0.76 K/uL (0.11-0.59); Monocytes % (auto) 16.4 %; Neutrophils # (auto) 2.77 K/uL (1.4-6.5); Neutrophils % (auto) 59.8 %; Platelet Count 138 K/uL (130-400); RDW Coefficient of Variation 13.6 % (11.5-14.5); RDW Standard Deviation 46.9 fL (36.4-46.3); Red Blood Count 4.54 M/uL (4.7-6.1); White Blood Count 4.63 K/uL (4.8-10.8)
[2019-06-07 13:03] LABS: Albumin Level 3.5 gm/dl (3.4-5.0); BUN Creatinine Ratio 19.5 (10-20); Creatinine Clr Calc Pharmacy 65.9 ml/min; Est GFR (African American) 69.5; Potassium 3.4 mmol/L (3.5-5.1)
--- NOTE | 2019-06-07 13:04 | XRay Report ---
XR chest Pre-admission PA/Lat HISTORY: Preop. COMPARISON: Chest 03/02/2018. FINDINGS: The heart remains mildly enlarged. The lungs are clear. No pleural effusions. No pneumothor ax. IMPRESSION: No significant change compared to the prior study. No acute process. ACT 112: Negative or not required by law. Electronically signed by: Srinivasa Andrea M.D. 06/07/2019 1:03 PM
[2019-06-07 13:09] LABS: Appearance Urine Clear (Clear); Bilirubin Urine Negative (Negative); Blood Urine Negative (Negative); Color Urine Yellow; Glucose Urine UA Negative (Negative); Ketones Urine Negative (Negative); Leukocyte Esterase Urine Negative (Negative); Nitrite Urine Negative (Negative); Protein Urine Negative (Negative); Specific Gravity Urine 1.022 (1.000-1.030); Urobilinogen Urine Negative (Negative); pH Urine 6.5 (4.5-7.5)
[2019-06-07 13:13] LABS: INR 1.1 (0.9-1.1); Partial Thromboplastin Time 27.6 Seconds (21.0-31.0); Prothrombin Time 11.6 Seconds (9.0-12.0)
[2019-06-07 14:00] LABS: Estimated Average Glucose 131 mg/dl; Hemoglobin A1C 6.2 % (4.5-5.6)
--- NOTE | 2019-07-03 11:20 | History & Physical Report ---
Date of Service July 03, 2019 Assessment & Plan (1) Degenerative joint disease of left hip: I have indicated the patient for removal of hardware and Left total hip replacement. The risks, benefits and complications of surgery were explained to the patient which include but not limited to infection, acute blood loss, DVT/PE, injury to nerves, vessels, bone, soft tissue, arthrofibrosis, chronic pain, failure of the prosthesis, hip dislocation, leg length discrepancy, need for additional surgery, cardiac and pulmonary events and . The patient wished to proceed with surgery and informed consent was obtained at this time. We will plan for ASA BID post-operatively for DVT prophylaxis. Upon discharge the patient will be discharged home with home health services. Appropriate clearances by PCP and cardiology were obtained. History of Present Illness Chief Complaint: Left hip pain/djd Primary Care Provider: Orlando Altman MD The patient is a 79 year old male who presents with complaints of severe left hip pain and DJD. The patient has history for left hip fracture, treated with left hip cephalomedullary nail on 07/11/17. The patient did well post- operatively however developed progressing post-traumatic arthritis. The patient has failed outpatient conservative treatments to this point which included NSAIDs, IA corticosteroid injection and PT/home exercise/walking program. The patient's pain and limited function have progressed to the point where they severely hinder their activities of daily living and they no longer tolerate exercise programs. They are requesting to proceed with total hip replacement surgery. Allergies Allergy/AdvReac Type Severity Reaction Status Date / Time No Known Allergies Allergy Unverified 06/29/19 14:28 Home Medications Home Medications Medication Instructions Recorded Confirmed Type [place] 3-6-9 1 cap PO BID 05/31/19 06/29/19 History acetaminophen [Tylenol Extra 1,000 mg PO Q6H PRN 05/31/19 06/29/19 History Strength] apple cider vinegar 600 mg PO QPM 05/31/19 06/29/19 History ascorbic acid (vitamin C) [Vitamin 1,000 mg PO QAM 05/31/19 06/29/19 History C] cholecalciferol (vitamin D3) 5,000 unit PO QPM 05/31/19 06/29/19 History [Vitamin D3] coQ10 (ubiquinol) 100 mg PO QPM 05/31/19 06/29/19 History multivitamin 1 tab PO QAM 05/31/19 06/29/19 History pantoprazole 40 mg PO QAM 05/31/19 06/29/19 History telmisartan-hydrochlorothiazid 1 tab PO QAM 05/31/19 06/29/19 History turmeric 1,000 mg PO QPM 05/31/19 06/29/19 History vitamin B complex 1 cap PO QPM 05/31/19 06/29/19 History vitamin E 400 unit PO QPM 05/31/19 06/29/19 History atenolol 50 mg tablet 50 mg PO QAM #90 tab 06/14/19 06/29/19 Rx amlodipine 5 mg PO DAILY #30 tab 06/24/19 06/29/19 Rx potassium chloride 10 meq PO DAILY #30 tab 06/24/19 06/29/19 Rx Past Med/Surg History Medical History Arthritis 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 Gallbladder disease GERD (gastroesophageal reflux disease) History of IBS NO MEDS Hypertension Kidney stones Pneumonia Treated at [facility] 06/21-06/24. Mildly elevated troponins while inpatient ruled secondary to demand ischemia from acute illness/tachycardia/hypoxia. Temporomandibular joint disorder CLICKS LEFT SIDE HAS NOT LOCKED Surgical History History of cardiac cath 20 YRS AGO-DONE FOR CHEST PAIN-NO STENTS NEEDED History of colonoscopy History of esophagogastroduodenoscopy (EGD) Hx of cholecystectomy Intertrochanteric fracture of left femur Family History Grandmother (Paternal) Family history of diabetes mellitus Father Family history of esophageal cancer Other No significant family history Social History Preferred Language: Jamaican 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 Ability: Effective Pig Handler Required: No Beliefs That Will Affect Care: None Current Living Situation: Spouse Other Information That Helps Us Care for You: No Feels Safe at Home: Yes Safety Concerns: Feels Safe At This Time Smoking Status: Unknown if ever smoked Hx Alcohol Use: No Hx Substance Use: No Review of Systems Review of Systems: All systems reviewed & are unremarkable except as noted in HPI & below Constitutional: as per Subjective / HPI Physical Exam Physical Exam: LLE NVSI +EHL/FHL/TA/GS SILT grossly, +2 DP pulse, compartments soft NT, limited painful ROM of the hip, antalgic gait. Constitutional: WD/WN, vitals as above Eyes: PERRL, conjunctivae normal, anicteric sclerae ENMT: external ear and nose normal, oropharynx normal Neck: trachea midline, no thyromegaly Respiratory: normal respiratory effort, lungs clear to auscultation Cardiovascular: RRR, no murmur, no edema Gastrointestinal (Abdomen): normal bowel sounds, soft, nontender, no hepatosplenomegaly Musculoskeletal: no cyanosis or clubbing, extremities motor strength 5/5 Skin: no rashes, warm and dry Neurologic: patellar DTR's 2+ bilat, sensation intact Psychiatric: A+Ox3, euthymic affect Lymphatic: no cervical or axillary lymphadenopathy Results & Data Diagnostic Findings Multiple views of the hip demonstrates well aligned well fixed cephalomedullary nail, severe DJD with complete loss of the joint space. +osteophytes, +sclerosis, +subchondral cysts.
[~2019-07-05 09:19] MED LIST changes: +ACETAMINOPHEN 500 MG TAB PO SCH; -ATEN-173 PO; +BUPIVACAINE 0.5 % 5 MG/1 ML PF 10ML VIAL ONE; +CEFAZOLIN 2000MG 2,000 MG/15 ML SYR IV SCH; -COENCAP9 PO; +CeleBREX 200 MG CAP PO SCH; +FAMOTIDINE 20 MG TAB PO SCH; +GABAPENTIN 300 MG CAP PO SCH; -KRIL1000 PO; +METOCLOPRAMIDE HCL 10 MG TABLET PO SCH; +MISSING PHYSICIAN SIGNATURE ON ORDER SCH; -MULT-506 PO; -PANT40TA PO; -PSYL48.59 PO; +ROPIVACAINE 0.5% HCL/PF 150 MG, BUPIVACAINE 0.5% MPF 30 ML, EPINEPHrine 30MG/30ML (OR U... INSTIL SCH; -TELM80TA6 PO; -TRAM-10 PO; +TRANEXAMIC ACID / 0.7% NACL 1,000 MG/100 ML BAG IV SCH; +TRANEXAMIC ACID 1,000 MG **IV Pre-op IV SCH; +dexAMETHasone 4 MG TAB PO SCH
--- NOTE | 2019-07-05 10:04 | History & Physical Bridge Note ---
Date of Service July 05, 2019 History & Physical Bridge Note I have examined the patient, reviewed the History & Physical and in the interval since the performance of the History & Physical I have noted the following changes of clinical significance: no changes noted
[2019-07-05] MEDS: LR 500ML BOLUS, THEN 15ML/HR IV SCH ×2 (10:40→12:45)
[2019-07-05] MEDS ORDERED: PHENYLEPHRINE 100MCG/ML 5ML SYR ONE (10:50)
[2019-07-05] MEDS ORDERED: ePHEDrine sulfate 50 MG/ML SYR ONE (10:50)
[2019-07-05] MEDS ORDERED: LIDOCAINE HCL 2% 2 ML VIAL/AMP(20MG/ML) INFIL ONE (10:50)
[2019-07-05] MEDS ORDERED: PROPOFOL IV EMULSION 10 MG/ML 20 ML VIAL IV ONE ×5 (10:50→15:00)
[2019-07-05] MEDS ORDERED: fentaNYL citrate 100 MCG/2 ML VIAL ONE ×2 (10:51→14:26)
[2019-07-05] MEDS ORDERED: MIDAZOLAM HCL 1 MG/ML 2ML VIAL ONE (10:51)
[2019-07-05] MEDS ORDERED: BACITRACIN INJ 50,000 UNIT VIAL ONE (12:42)
[2019-07-05] MEDS ORDERED: LABETALOL HCL IV 5 MG/ML 20ML IV PRN (15:19)
[2019-07-05] MEDS ORDERED: ONDANSETRON INJ 2 MG/ML 2 ML VIAL IV PRN ×2 (15:19→17:55)
[2019-07-05] MEDS ORDERED: fentaNYL citrate 100 MCG/2 ML VIAL IV PRN (15:19)
[2019-07-05] MEDS ORDERED: ATROPINE SULFATE 0.1 MG/ML 10ML SYR IV PRN (15:19)
[2019-07-05] MEDS ORDERED: PHENYLEPHRINE 100MCG/ML 5ML SYR IV PRN (15:19)
[2019-07-05] MEDS ORDERED: ePHEDrine sulfate 50 MG/ML AMP IV PRN (15:19)
[2019-07-05] MEDS ORDERED: VANCOMYCIN HCL 1000MG/20ML VIAL ONE (15:57)
--- NOTE | 2019-07-05 16:07 | Fluoroscopy Report ---
FL hip LT 1V CLINICAL HISTORY: LT HIP REVISION CHECK STEM SIZE COMPARISON STUDY: None FLUOROSCOPY TIME: 35 seconds NUMBER OF FLUOROSCOPIC IMAGES: 4 FINDINGS: Revision left total hip stem. STEM size appears appropriate. Could contact between stem and underlying bone. IMPRESSION: Anatomic alignment post left stem revision. ACT 112: Negative or not required by law. The above report was generated using voice recognition software. It may contain grammatical, syntax or spelling errors. Electronically signed by: Sanju Thornton M.D. 07/05/2019 4:06 PM
--- NOTE | 2019-07-05 16:37 | Post Operative Brief Note ---
Immediate Post Op Note v1 Date of Surgery July 05, 2019 Pre & Post Diagnosis Operation Date: 07/05/19 12:05 Pre-Op Diagnosis: LEFT HIP OSTEOARTHRITIS & PAINFUL HARDWARE Post-Op Diagnosis: LEFT HIP OSTEOARTHRITIS & PAINFUL HARDWARE I identified the patient and participated in the time-out.: Yes Procedure Operation Date: 07/05/19 12:05 Actual Procedures p Left Total Hip Arthroplasty uncemented and Hardware Removal(Left) - Reuben Sneed DO Surgeon Reuben Sneed DO Collections Officer Wisam Anand Estimated Blood Loss 475 Findings Consistent with Post-Op Diagnosis Fluids 2200 cc LR Specimens Femoral head Drains Vargas Catheter and Hemovac Drain Anesthesia Type Spinal MAC Complications none Disposition Disposition: Recovery Room Overlapping Procedure I was present for: the critical portions of procedure. I was immediately available: during the entire case. Back up surgeon: was not required during procedure.
--- NOTE | 2019-07-05 16:38 | Operative Report ---
Post Operative Report Pre & Post Diagnosis Operation Date: 07/05/19 12:05 Pre-Op Diagnosis: LEFT HIP OSTEOARTHRITIS & PAINFUL HARDWARE Post-Op Diagnosis: LEFT HIP OSTEOARTHRITIS & PAINFUL HARDWARE I identified the patient and participated in the time-out.: Yes Procedure Operation Date: 07/05/19 12:05 Actual Procedures p Left Total Hip Arthroplasty uncemented and Hardware Removal(Left) - Reuben Sneed DO Surgeon Reuben Sneed, Biomedical Engineering Technician Wisam Anand Estimated Blood Loss 475 Findings Consistent with Post-Op Diagnosis Fluids 2200 cc LR Specimens Femoral head Anesthesia Type Spinal MAC Disposition Disposition: Recovery Room Indications The patient is a 79 year old male who presents with complaints of severe left hip pain and DJD. The patient has history for left hip fracture, treated with left hip cephalomedullary nail on 07/11/17. The patient did well post- operatively however developed progressing post-traumatic arthritis. The patient has failed outpatient conservative treatments to this point which included NSAIDs, IA corticosteroid injection and PT/home exercise/walking program. The patient's pain and limited function have progressed to the point where they severely hinder their activities of daily living and they no longer tolerate exercise programs. They are requesting to proceed with total hip replacement surgery. I have indicated the patient for removal of hardware and Left total hip replacement. The risks, benefits and complications of surgery were explained to the patient which include but not limited to infection, acute blood loss, DVT/PE, injury to nerves, vessels, bone, soft tissue, arthrofibrosis, chronic pain, failure of the prosthesis, hip dislocation, leg length discrepancy, need for additional surgery, cardiac and pulmonary events and . The patient wished to proceed with surgery and informed consent was obtained at this time. We will plan for ASA BID post-operatively for DVT prophylaxis. Upon discharge the patient will be discharged home with home health services. Appropriate clearances by PCP and cardiology were obtained. Description of Procedure COMPONENTS USED: Antonette Biomet hip system: Acetabulum size 60 G7 osteo-ti, femur size 25567 Matthew one-piece high offset, femoral head 36-3, liner 6036, acetabular screw 30 mm x 1. Following induction of adequate general anesthesia, the patient was transferred to the OR table and placed in lateral decubitus position with right hip down. The left hip was prepped and draped in the typical sterile fashion. A timeout was performed, patient identified and site day confirmed. Appropriate antibiotics were given. A standard posterolateral/Jazzy-Langenbeck incision was made. We extended the incision distally to incorporate the prior distal incisions for the cephalo- medullary nail. Subcutaneous tissue was sharply dissected. Electrocautery was utilized for hemostasis. The fascia was incised throughout the length of the wound and retracted with the Charnley retractor. The bursa was taken down and the short external rotators were identified. The piriformis was tagged with #1 Vicryl. The short external rotators and capsule were divided from the posterior aspect of the femur using electrocautery. The posterior capsule was tagged with #1 Vicryl. Both external rotators and posterior capsule were swept posterior and protected, along with protecting the sciatic nerve. Next the dissection was carried proximally to the greater troches. The gluteus muscle fibers were split to gain access to the tip of the greater troches. Utilizing C arm fluoroscopy we identified the position of the proximal aspect of the cephalo-medullary nail. There was significant bony overgrowth which was removed with rondure or and awl. Once the proximal aspect of the cephalo- measuring now was exposed and bone debris cleared utilizing the flexible septic pump truck driver the helical blade was unlocked proximally. The removal handle was then attached to the proximal nail. Next we focused our attention to the distal locking screw and helical blade. We dissected down bluntly until the screw head and helical blade were adequately visualized. Soft tissue debris was cleared from the screw and helical blade. Post locking screw and helical blade were removed easily. Next we turned our attention proximally the cephalo-medullary nail was easily removed. Next the hip was dislocated by flexion and internally rotation in a controlled manner and exposure of the femoral neck was gained with an old-style Hohmann and a blunt cobra retractor. A femoral cutting guide was utilized for making the appropriate level femoral neck cut with reciprocating saw. The femoral head was removed, measured and reserved on the back table. Next, attention was turned to the acetabulum. A posterior and anterior offset retractor was placed to gain adequate exposure. Acetabular labrum as well as posterior capsule elements were removed using electrocautery and forceps. Fovea centralis was cleared of all soft tissue. Sequential reaming was performed starting at 48mm and carried up to a 59 mm and decision was made to proceed with impaction of a 60 mm G7 osteo- ti cup. This was impacted and held using a single 30 mm bone screw. The trial acetabular liner was placed at this time. Next, attention was turned to the proximal femur where a Bovie and pickup was used to further clear short external rotators from their insertion on the femur. Box osteotome and canal finder was used to gain access to the femoral canal and the lateral reamer on power was used to further open the proximal lateral canal. Next distal reaming was performed by hand to a depth of 210 mm starting at [ ] and increased sequentially until good bone chatter was appreciated to a final size 16 mm. Next, sequentially rasping was carried up to a 16 which gave good fit and fill of the proximal femur. A trial reduction was carried out with a -3 femoral neck component a 36 mm femoral head. The trial reduction was stable in all degrees of rotation with no dcft-em-adaf impingement. The hip was dislocated, trial components were removed and access to the acetabulum was re-established. The trial liner was removed and the cup was irrigated to ensure all debris was removed. The final acetabular liner was inserted and properly seated in the cup. Access to the femur was once more gained and the size 91313 Matthew 1 piece femoral stem with high offset was impacted into position. The hip was once more assessed with the 36-3 mm femoral head. Stability was accessed and found to be excellent with equal leg lengths. The hip was dislocated for the last time and the final 36-3 ceramic femoral head was impacted in place and the hip was reduced. Range of motion was checked once again and found to be stable. A Betadine soak was performed. After 3 minutes, the hip was once more irrigated with copious sterile saline solution with bacitracin. The edgardo-incisional soft tissue was injected utilizing [place] ortho mix which includes a combination of Ropivicaine 0.5% 150mg, Bupivicaine 0.5%/Epinephrine 1:200,000 30ml, Toradol 30mg, Dexamethasone 4mg, Ketamine 10mg, Clonidine 100mcg and NSS 30ml Orthomix solution. The piriformis, external rotators, abductor tendon and capsule were repaired to the greater trochanter through bone tunnels using #5 FiberWire. The fascia was closed using #1 Vicryl, subcutaneous tissue was closed using 2-0 Vicryl, and skin was closed with melba. Sterile dressings were applied which included Yajaira incisional VAC, drain sponge and tape. The patient tolerated the procedure well and was transported to PACU in stable condition. Due to the complex nature of the procedure, the entire surgery was performed with the operational assistance of Wisam anand PA-C. The field administrative assistant, under direct supervision, was involved in the actual performance of all aspects of the surgical procedure including patient positioning, hemostasis, tissue retraction, instrument management and wound closure. I attest to the content of the Intraoperative Record and any orders documented therein. Any exceptions are noted below.
--- NOTE | 2019-07-05 17:15 | Anesthesiology Progress Note ---
Date of Service July 05, 2019 Anesthesia Post Procedure Vital Signs Vital Signs: Temp Pulse Pulse Resp BP Pulse Ox 07/05/19 17:10 78 12 104/63 98 07/05/19 17:00 80 14 92/54 L 99 07/05/19 16:52 36.5 C 78 18 109/57 L 100 07/05/19 10:21 36.6 C 67 20 132/99 98 Pain Intensity Left Hip: Pain Intensity: 2 Transfer of Care Handoff Completed per policy Notes Mental Status: alert / awake / arousable Patient Amnestic to Procedure: Yes Nausea / Vomiting: adequately controlled Pain: adequately controlled Airway Patency, RR, SpO2: stable & adequate BP & HR: stable & adequate Hydration State: stable & adequate Neuraxial Anesthesia: was administered and sensory block is resolving Anesthetic Complications: no major complications apparent and Pt Satisfied with anesthetic care
--- NOTE | 2019-07-05 17:30 | XRay Report ---
SINGLE VIEW PELVIS; SINGLE VIEW LEFT HIP CLINICAL HISTORY: Postoperative examination. FINDINGS: 2 AP portable views of the hips and pelvis with a crosstable lateral portable view of the l eft hip are obtained. A bipolar left hip arthroplasty is in near-anatomic alignment. A single cortica l lag screw transfixes the acetabular cup. No acute fracture is identified. There are expected postop erative changes overlying the left hip including skin clips, subcutaneous gas, a surgical drain, and soft tissue swelling. Moderate degenerative changes noted in the right hip. Degenerative sclerosis is seen in the sacroiliac joints. IMPRESSION: Expected postoperative findings status post left hip arthroplasty. No acute fracture is s een. ACT 112: Negative or not required by law. Electronically signed by: Flavio Masterson M.D. 07/05/2019 5:28 PM
[2019-07-05] MEDS ORDERED: bisacodyL 10 MG SUPP PR PRN (17:55)
[2019-07-05] MEDS ORDERED: VANCOMYCIN CONSULT ACTIVE PRN (17:55)
[2019-07-05] MEDS ORDERED: NALOXONE HCL 0.4 MG/1 ML VIAL/CARP IV PRN (17:55)
[2019-07-05] MEDS ORDERED: HYDROmorphone INJ 0.5 MG/0.5 ML SYR IV PRN (17:55)
[2019-07-05] MEDS ORDERED: METOCLOPRAMIDE HCL INJ 5 MG/ML 2 ML VIAL IV PRN (17:55)
[2019-07-05] MEDS ORDERED: MAGNESIUM HYDROXIDE SUSP 30 ML UDC PO PRN (17:55)
--- NOTE | 2019-07-05 19:02 | Orthopedic Progress Note ---
Date of Service July 05, 2019 Assessment & Plan (1) Degenerative joint disease of left hip: s/p removal of hardware and left total hip arthroplasty -ancef/vanco x 24 -DVT ppx: SCDs, TEDs, ASA BID -PWB LLE with assistive device -Posterior hip and abduction precautions -PT/OT -PO XR demonstrates a well aligned well fixed prothesis without fracture/dislocation -am labs -DC planning Subjective Post Operative Progress Note Patient seen sitting up in bed, comfortable, denies complaints, pain well controlled, no acute issues. Review of Systems Review of Systems: All systems reviewed & are unremarkable except as noted in HPI & below Constitutional: as per Subjective / HPI Physical Exam Physical Exam: LLE NVSI +EHL/FHL/TA/GS SILT grossly, +2 DP pulse, compartments soft NT, dressing cdi. Abduction pillow in place Constitutional: WD/WN, vitals as above Results & Data Vital Signs (Past 12 Hours) Vital Signs Temp Pulse Pulse Resp BP Pulse Ox 07/05/19 18:10 36.5 C 79 16 123/73 93 07/05/19 17:40 36.5 C 80 18 113/69 96 07/05/19 17:30 36.7 C 80 20 101/64 97 07/05/19 17:20 80 20 117/58 L 97 07/05/19 17:10 78 12 104/63 98 07/05/19 17:00 80 14 92/54 L 99 07/05/19 16:52 36.5 C 78 18 109/57 L 100 07/05/19 10:21 36.6 C 67 20 132/99 98
[2019-07-05] MEDS: KETOROLAC TROMETHAMINE 15 MG/ML VIAL IV SCH (19:37)
[2019-07-05] MEDS: DOCUSATE SODIUM 100 MG CAP PO SCH (20:46)
[2019-07-05] MEDS: SENNA 8.6 MG TAB PO SCH (20:46)
[2019-07-05] MEDS: CEFAZOLIN 2000MG 2,000 MG/15 ML SYR IV SCH (21:02)
[2019-07-05] MEDS: ACETAMINOPHEN 500 MG TAB PO SCH (21:02)
[2019-07-05] MEDS: SODIUM CHLORIDE 0.9% 1000ML 1,000 ML IV SCH (21:02)
[2019-07-06] MEDS: KETOROLAC TROMETHAMINE 15 MG/ML VIAL IV SCH ×3 (01:58→13:22)
[2019-07-06] MEDS: VANCOMYCIN HCL 1,500 MG in SODIUM CHLORIDE 0.9% 500 ML IV SCH ×2 (03:14→15:56)
[2019-07-06] MEDS: ACETAMINOPHEN 500 MG TAB PO SCH ×3 (05:32→21:03)
[2019-07-06] MEDS: CEFAZOLIN 2000MG 2,000 MG/15 ML SYR IV SCH (05:32)
[2019-07-06 06:05] LABS: Hematocrit (blood only) 34.3 % (42-52); Hemoglobin 11.7 g/dL (14.0-18.0); Mean Corpuscular Hemoglobin 32.1 pg (25-34); Mean Corpuscular Hgb Conc 34.1 g/dL (32-36); Mean Corpuscular Volume 94.2 fL (80-100); Platelet Count 248 K/uL (130-400); RDW Coefficient of Variation 13.9 % (11.5-14.5); RDW Standard Deviation 48.3 fL (36.4-46.3); Red Blood Count 3.64 M/uL (4.7-6.1); White Blood Count 12.09 K/uL (4.8-10.8)
[2019-07-06] MEDS: SODIUM CHLORIDE 0.9% 1000ML 1,000 ML IV SCH (06:22)
[2019-07-06 06:33] LABS: BUN Creatinine Ratio 17.3 (10-20); Creatinine Clr Calc Pharmacy 56.2 ml/min; Est GFR (African American) 58.8; Est GFR (Non-African American) 50.7
[2019-07-06 07:21] LABS: Immature Granulocytes # (auto) 0.03 K/uL (0.00-0.02); Immature Granulocytes % (auto) 0.2 %; Lymphocytes # (auto) 0.96 K/uL (1.2-3.4); Lymphocytes % (auto) 7.9 %; Monocytes # (auto) 1.35 K/uL (0.11-0.59); Monocytes % (auto) 11.2 %; Neutrophils # (auto) 9.75 K/uL (1.4-6.5); Neutrophils % (auto) 80.7 %; RBC Morphology Unremarkable
--- NOTE | 2019-07-06 07:51 | Anesthesiology Progress Note ---
Date of Service July 06, 2019 Anesthesia Post Procedure Vital Signs Vital Signs: Temp Pulse Pulse Pulse Resp BP Pulse Ox 07/06/19 07:43 36.7 C 70 14 126/52 L 94 07/06/19 03:12 36.9 C 80 16 103/57 L 93 07/05/19 22:40 36.6 C 93 H 16 122/67 94 07/05/19 20:40 36.2 C L 95 H 16 154/77 H 97 07/05/19 19:37 36.6 C 86 16 134/78 98 07/05/19 18:58 36.9 C 89 16 127/79 97 07/05/19 18:10 36.5 C 79 16 123/73 93 07/05/19 17:40 36.5 C 80 18 113/69 96 07/05/19 17:30 36.7 C 80 20 101/64 97 07/05/19 17:20 80 20 117/58 L 97 07/05/19 17:10 78 12 104/63 98 07/05/19 17:00 80 14 92/54 L 99 07/05/19 16:52 36.5 C 78 18 109/57 L 100 07/05/19 10:21 36.6 C 67 20 132/99 98 Pain Intensity Left Hip: Pain Intensity: 0 Notes Mental Status: alert / awake / arousable and participated in evaluation Patient Amnestic to Procedure: Yes Nausea / Vomiting: adequately controlled Pain: adequately controlled Airway Patency, RR, SpO2: stable & adequate BP & HR: stable & adequate Hydration State: stable & adequate Neuraxial Anesthesia: was administered and sensory block resolved Anesthetic Complications: no major complications apparent
[2019-07-06] MEDS: DOCUSATE SODIUM 100 MG CAP PO SCH ×2 (08:24→21:04)
[2019-07-06] MEDS: hydroCHLOROthiazide 25 MG TAB PO SCH (08:24)
[2019-07-06] MEDS: POTASSIUM CHLORIDE 10 MEQ TABCR PO SCH (08:25)
[2019-07-06] MEDS: MULTIVITAMIN TAB PO SCH (08:25)
[2019-07-06] MEDS: TELMISARTAN 40 MG TAB PO SCH (08:25)
[2019-07-06] MEDS: PANTOprazole 40 MG TAB PO SCH (08:26)
[2019-07-06] MEDS: AMLODIPINE BESYLATE 5 MG TAB PO SCH (08:26)
[2019-07-06] MEDS: ATENOLOL 50 MG TABLET PO SCH (08:26)
[2019-07-06] MEDS: ASPIRIN 325 MG ECTAB PO SCH ×2 (09:01→21:02)
--- NOTE | 2019-07-06 13:02 | Orthopedic Progress Note ---
Date of Service July 06, 2019 Assessment & Plan (1) Degenerative joint disease of left hip: s/p removal of hardware and left total hip arthroplasty POD#1 -ancef/vanco x 24 -DVT ppx: SCDs, TEDs, ASA BID -PWB LLE with assistive device -Posterior hip and abduction precautions -PT/OT -PO XR demonstrates a well aligned well fixed prothesis without fracture/dislocation -am labs - hgb 11.7 -DC planning Subjective Post Operative Progress Note Patient seen sitting up in bed, comfortable, denies complaints, pain well controlled, no acute issues. Denies F/C/N/V/SOP/CP. Review of Systems Review of Systems: All systems reviewed & are unremarkable except as noted in HPI & below Constitutional: as per Subjective / HPI Physical Exam Physical Exam: LLE NVSI +EHL/FHL/TA/GS SILT grossly, +2 DP pulse, compartments soft NT, dressing cdi. Constitutional: WD/WN, vitals as above Results & Data Vital Signs (Past 12 Hours) Vital Signs Temp Pulse Pulse Resp BP Pulse Ox 07/06/19 11:22 36.6 C 72 16 120/54 L 98 07/06/19 07:43 36.7 C 70 14 126/52 L 94 07/06/19 03:12 36.9 C 80 16 103/57 L 93 Laboratory Results 07/06/19 07/06/19 Range/Units 05:43 05:43 WBC 12.09 H (4.8-10.8) K/uL RBC 3.64 L (4.7-6.1) M/uL Hgb 11.7 L (14.0-18.0) g/dL Hct 34.3 L (42-52) % MCV 94.2 (80-100) fL MCH 32.1 (25-34) pg MCHC 34.1 (32-36) g/dL RDW Std Deviation 48.3 H (36.4-46.3) fL RDW Coeff of Gerber 13.9 (11.5-14.5) % Plt Count 248 (130-400) K/uL MPV 10.0 (7.4-10.4) fL Immature Gran % (Auto) 0.2 % Neut % (Auto) 80.7 % Lymph % (Auto) 7.9 % Dewey % (Auto) 11.2 % Eos % (Auto) 0.0 % Baso % (Auto) 0.0 % Immature Gran # (Auto) 0.03 H (0.00-0.02) K/uL Neut # (Auto) 9.75 H (1.4-6.5) K/uL Lymph # (Auto) 0.96 L (1.2-3.4) K/uL Dewey # (Auto) 1.35 H (0.11-0.59) K/uL Eos # (Auto) 0.00 (0-0.5) K/uL Baso # (Auto) 0.00 (0-0.2) K/uL RBC Morphology Unremarkable Sodium 138 (136-145) mmol/L Potassium 4.0 (3.5-5.1) mmol/L Chloride 107 (98-107) mmol/L Carbon Dioxide 23 (21-32) mmol/L Anion Gap 8.0 (3-11) BUN 23 H (7-18) mg/dl Creatinine 1.31 (0.6-1.4) mg/dl Est Cr Clr Drug Dosing 56.2 ml/min Est GFR ( Amer) 58.8 Est GFR (Non-Af Amer) 50.7 BUN/Creatinine Ratio 17.3 (10-20) Glucose 149 H (70-99) mg/dl Calcium 8.0 L (8.5-10.1) mg/dl
[2019-07-06] MEDS: CeleBREX 200 MG CAP PO SCH (21:02)
[2019-07-06] MEDS: SENNA 8.6 MG TAB PO SCH (21:02)
[2019-07-07] MEDS: OXYCODONE HCL IR 5 MG TAB (IMMEDIATE RELEASE) PO PRN ×2 (01:09→09:07)
[2019-07-07] MEDS: ACETAMINOPHEN 500 MG TAB PO SCH ×2 (05:21→14:06)
[2019-07-07 05:37] LABS: Basophils # (auto) 0.02 K/uL (0-0.2); Basophils % (auto) 0.2 %; Eosinophils # (auto) 0.01 K/uL (0-0.5); Eosinophils % (auto) 0.1 %; Hematocrit (blood only) 33.4 % (42-52); Hemoglobin 11.2 g/dL (14.0-18.0); Immature Granulocytes # (auto) 0.02 K/uL (0.00-0.02); Immature Granulocytes % (auto) 0.2 %; Lymphocytes # (auto) 1.38 K/uL (1.2-3.4); Lymphocytes % (auto) 14.2 %; Mean Corpuscular Hemoglobin 31.8 pg (25-34); Mean Corpuscular Hgb Conc 33.5 g/dL (32-36); Mean Corpuscular Volume 94.9 fL (80-100); Monocytes # (auto) 1.57 K/uL (0.11-0.59); Monocytes % (auto) 16.1 %; Neutrophils # (auto) 6.75 K/uL (1.4-6.5); Neutrophils % (auto) 69.2 %; Platelet Count 254 K/uL (130-400); RDW Coefficient of Variation 14.4 % (11.5-14.5); RDW Standard Deviation 49.3 fL (36.4-46.3); Red Blood Count 3.52 M/uL (4.7-6.1); White Blood Count 9.75 K/uL (4.8-10.8)
[2019-07-07 05:44] LABS: BUN Creatinine Ratio 17.4 (10-20); Creatinine Clr Calc Pharmacy 60.3 ml/min; Est GFR (Non-African American) 55.3; Potassium 3.9 mmol/L (3.5-5.1)
--- NOTE | 2019-07-07 07:43 | Orthopedic Progress Note ---
Date of Service July 07, 2019 Assessment & Plan (1) Degenerative joint disease of left hip: s/p removal of hardware and left total hip arthroplasty POD#2 -ancef/vanco x 24 -DVT ppx: SCDs, TEDs, ASA BID -PWB LLE with assistive device -Posterior hip and abduction precautions -PT/OT -PO XR demonstrates a well aligned well fixed prothesis without fracture/dislocation -am labs - hgb 11.2 -DC planning POD#1 -ancef/vanco x 24 -DVT ppx: SCDs, TEDs, ASA BID -PWB LLE with assistive device -Posterior hip and abduction precautions -PT/OT -PO XR demonstrates a well aligned well fixed prothesis without fracture/dislocation -am labs - hgb 11.7 -DC planning Subjective Post Operative Progress Note Patient seen sitting up in bed, comfortable, denies complaints, pain well controlled, no acute issues. Had some increased pain last night however much improved this morning. Denies F/C/N/V/SOP/CP. Review of Systems Review of Systems: All systems reviewed & are unremarkable except as noted in HPI & below Constitutional: as per Subjective / HPI Physical Exam Physical Exam: LLE NVSI +EHL/FHL/TA/GS SILT grossly, +2 DP pulse, compartments soft NT, dressing cdi. Constitutional: WD/WN, vitals as above Results & Data Vital Signs (Past 12 Hours) Vital Signs Temp Pulse Resp BP Pulse Ox 07/06/19 23:54 37.2 C 75 16 142/68 H 99 Laboratory Results 07/07/19 07/07/19 Range/Units 05:00 05:00 WBC 9.75 (4.8-10.8) K/uL RBC 3.52 L (4.7-6.1) M/uL Hgb 11.2 L (14.0-18.0) g/dL Hct 33.4 L (42-52) % MCV 94.9 (80-100) fL MCH 31.8 (25-34) pg MCHC 33.5 (32-36) g/dL RDW Std Deviation 49.3 H (36.4-46.3) fL RDW Coeff of Gerber 14.4 (11.5-14.5) % Plt Count 254 (130-400) K/uL MPV 10.0 (7.4-10.4) fL Immature Gran % (Auto) 0.2 % Neut % (Auto) 69.2 % Lymph % (Auto) 14.2 % Cochran % (Auto) 16.1 % Eos % (Auto) 0.1 % Baso % (Auto) 0.2 % Immature Gran # (Auto) 0.02 (0.00-0.02) K/uL Neut # (Auto) 6.75 H (1.4-6.5) K/uL Lymph # (Auto) 1.38 (1.2-3.4) K/uL [place]chran # (Auto) 1.57 H (0.11-0.59) K/uL Eos # (Auto) 0.01 (0-0.5) K/uL Baso # (Auto) 0.02 (0-0.2) K/uL Sodium 139 (136-145) mmol/L Potassium 3.9 (3.5-5.1) mmol/L Chloride 109 H (98-107) mmol/L Carbon Dioxide 25 (21-32) mmol/L Anion Gap 5.0 (3-11) BUN 21 H (7-18) mg/dl Creatinine 1.22 (0.6-1.4) mg/dl Est Cr Clr Drug Dosing 60.3 ml/min Est GFR ( Amer) 64.0 Est GFR (Non-Af Amer) 55.3 BUN/Creatinine Ratio 17.4 (10-20) Glucose 126 H (70-99) mg/dl Calcium 8.0 L (8.5-10.1) mg/dl
[2019-07-07] MEDS: DOCUSATE SODIUM 100 MG CAP PO SCH (08:46)
[2019-07-07] MEDS: ASPIRIN 325 MG ECTAB PO SCH (08:46)
[2019-07-07] MEDS: CeleBREX 200 MG CAP PO SCH (08:46)
[2019-07-07] MEDS: hydroCHLOROthiazide 25 MG TAB PO SCH (08:46)
[2019-07-07] MEDS: AMLODIPINE BESYLATE 5 MG TAB PO SCH (08:47)
[2019-07-07] MEDS: POTASSIUM CHLORIDE 10 MEQ TABCR PO SCH (08:47)
[2019-07-07] MEDS: MULTIVITAMIN TAB PO SCH (08:47)
[2019-07-07] MEDS: TELMISARTAN 40 MG TAB PO SCH (08:47)
[2019-07-07] MEDS: ATENOLOL 50 MG TABLET PO SCH (08:48)
[2019-07-07] MEDS: PANTOprazole 40 MG TAB PO SCH (08:48)
--- NOTE | 2019-07-09 14:39 | Discharge Summary ---
Date of Service July 09, 2019 Admission HPI Per Admitting Provider The patient is a 79 year old male who presents with complaints of severe left hip pain and DJD. The patient has history for left hip fracture, treated with left hip cephalomedullary nail on 07/11/17. The patient did well post- operatively however developed progressing post-traumatic arthritis. The patient has failed outpatient conservative treatments to this point which included NSAIDs, IA corticosteroid injection and PT/home exercise/walking program. The patient's pain and limited function have progressed to the point where they severely hinder their activities of daily living and they no longer tolerate ex ercise programs. They are requesting to proceed with total hip replacement surgery. Principal Diagnosis Removal of hardware, left total hip replacement Discharge Exam LLE NVSI +EHL/FHL/TA/GS SILT grossly, +2 DP pulse, compartments soft NT, dressing cdi. Constitutional WD/WN, vitals as above Discharge Data Allergies Allergy/AdvReac Type Severity Reaction Status Date / Time No Known Allergies Allergy Unverified 07/05/19 10:13 Consultations 07/06/19 08:00 Consult Case Management - Discharge Planning Routine Procedures Performed Operation Date: 07/05/19 12:05 Actual Procedures p Left Total Hip Arthroplasty uncemented and (Left) - Reuben Sneed DO s Hardware Removal(Left) - Reuben Sneed DO Ordered Studies 07/05/19 12:30 FL fluoroscopy <1hr Routine FL hip LT 1V Routine Hospital Course (1) Degenerative joint disease of left hip: The patient is a 79 -year-old male who presents with long standing history of severe left hip post-traumatic DJD with PSHx for left hip fracture treated with cephalomedullary nail and failed outpatient conservative treatments. The patient's symptoms have progressed to the point where it has been difficult to perform even normal activities of daily living. I indicated the patient for removal of hardware and left total hip arthroplasty, the risks, benefits and complications of the procedure include but not limited to infection, bleeding, damage to bone, nerves, vessels, surrounding soft tissue, may develop blood clots, loss of function, leg length discrepancy, dislocation, failure of the components, loosening of the components, the need for additional surgery and . The patient wished to proceed with surgery at this time and informed consent was obtained. Hospital Course: On 07/05/19 the patient was taken to the operating room, adequate anesthesia administered and underwent a removal of hardware, left total hip arthroplasty. The patient tolerated the procedure well and was taken to the PACU in stable condition. Post-operatively the patient was started on a DVT ppx medication and given appropriate IV antibiotics. Consults were placed to physical therapy, occupational therapy and case management. On POD#1, the patient did well overnight and their pain was well controlled. Labs were drawn and the Hgb was 1 1.7. The patient progressed well with PT. On POD#2, Dressings were changed at this time and the incision was clean, dry and intact. The patient did well overnight, pain controlled, no acute issues. Progressed well with PT. Labs were drawn, Hgb 11.2. The patients hospital stay was relatively uneventful and they were deemed stable by the orthopedic team and consultants to be discharged home with on 07/07/19. Discharge Instructions: Upon discharge the patient is to maintain partial weightbearing through their operative extremity. They were instructed to keep the incision clean and dry at all times. The patient may shower but should not submerge the incision, avoid bathing, pools and hot tubes. The patient was given a script for pain medication and should take as instructed. The patient was given a script for DVT ppx 325mg ASA BID and should take as directed. The patient was instructed to not drive or travel for long distances until cleared to do so. If the patient develops any symptoms of fevers, chills, nausea, vomiting, increased redness, swelling, pain or drainage from the surgical site, they should notify the office and/or proceed to the nearest emergency room. The patient should follow up in 10-14 days after surgery for their routine post-operative follow-up appointment and should call the office to confirm the date and time. s/p removal of hardware and left total hip arthroplasty POD#2 -ancef/vanco x 24 -DVT ppx: SCDs, TEDs, ASA BID -PWB LLE with assistive device -Posterior hip and abduction precautions -PT/OT -PO XR demonstrates a well aligned well fixed prothesis without fracture/dislocation -am labs - hgb 11.2 -DC planning POD#1 -ancef/vanco x 24 -DVT ppx: SCDs, TEDs, ASA BID -PWB LLE with assistive device -Posterior hip and abduction precautions -PT/OT -PO XR demonstrates a well aligned well fixed prothesis without fracture/dislocation -am labs - hgb 11.7 -DC planning Total Time Total Time Spent Total Time Spent (In Minutes): 60 Discharge Plan Discharge Items Patient Disposition: Home - Home Health Services Reason For Visit: LEFT HIP OSTEOARTHRITIS & PAINFUL HARDWARE Discharge Diagnosis: Removal of hardware, left total hip replacement Condition on Discharge: Good Activity: Per Instructions section Lifting: Wait until after follow-up appointment Bathing: Keep incision dry Bathing Comment: No bathing pools or hot tubs. Sexual Activity: Wait until after follow-up appointment Exercise/Sports: Wait until after follow-up appointment Driving/Machine Use: No driving. Weightbearing: Left partial Non-emergency contact: Primary Care Provider and Surgeon Call non-emergency contact if: you have any medication questions, your symptoms worsen, your pain is not controlled, your pain is worsening, your pain is unusual for you, your pain is concerning for you, you have a fever, your temperature is above 101, your wound has increased redness, your wound has increased drainage and your wound pain has increased Follow-up/Referrals: Orlando Altman MD [Primary Care Provider] - Diet: Regular Addtl Attending Provider Instructions: ACTIVITY RECOMMENDATIONS: SELF CARE INSTRUCTIONS AFTER TOTAL HIP REPLACEMENT Until the incision and soft tissues around your hip have healed, there is a possibility that the hip prosthesis could dislocate. A. Observe the following precautions to prevent dislocation: 1. Don't bend your hip greater than 90 degrees. 2. Avoid crossing your legs or ankles while standing or lying. 3. Sit with your feet placed 6 inches apart. 4. When sitting, keep your knees below your hips. Sit on a firm surface, avoid deep, soft chairs and couches. Use an elevated toilet seat in the bathroom. 5. Don't bend over at the waist. Use a long handled shoehorn and a sock aid to help you put on your shoes and socks. A jig filler can help you pickle processor objects that are too high or too low to reach. 6. Keep car riding to a minimum for at least one month after surgery. 7. No lifting your leg to the side or full weight bearing on your operative extremity. B. Your balance may be shaky for a while. Use crutches or a walker until directed by your doctor. C. Use hand rails when walking on stairs. D. Wear low heeled shoes with non-slip soles. E. Be sure that your floors are free of things that could trip you - throw rugs, electrical cords, small objects. Avoid wet and waxed floors, especially with crutches and canes. F. Try to walk several times a day with rest periods between. G. Continue with all the exercises taught to you in the hospital. Again, make walking a part of your daily routine. H. Continue with partial weight bearing on your operative extremity until cleared by your surgeon. SPECIAL CARE INSTRUCTIONS: VERY IMPORTANT TO READ AND REVIEW A. You may still be at risk for phlebitis and blood clots. 1. Wear surgical stockings (SOFY hose) for 2 weeks after surgery to improve circulation and reduce swelling. 2. Take Aspirin 325mg twice daily for 4 weeks or as directed by your doctor. This is your blood thinner. 3. High risk patients may be prescribed a stronger blood thinner if necessary. 4. If you are on Coumadin normally, your family doctor/catering server should monitor your blood work. Expect a phone call the day of or the day after bloodwork is drawn to adjust your dosage. B. You must take antibiotics before having dental work, bladder, bowel and other surgery. Your doctor will provide you with a permanent card to carry describing precautions. C. Call [facility] if you have a fever, redness or swelling around the incision, cloudy drainage from incision, or sudden increase in pain in your hip, not relieved by your regular pain medication. D. Please call the office at if you have any concerns or questions about your operation or recovery. * YOU MAY SHOWER, NO TUB BATHS UNTIL CLEARED BY YOUR DOCTOR. * WEAR SOFY HOSE 20 HOURS PER DAY FOR 2 WEEKS. * YOU SHOULD USE A WALKER OR CRUTCHES TILL CLEARED BY YOUR SURGEON. THIS WILL HELP PREVENT STRAIN ON YOUR HIP MUSCLE AND ALLOW IT TO HEAL PROPERLY. YOU MAY WEAN TO A CANE TOLERATED. * MOST PATIENTS WILL HAVE HOME NURSING FOR THERAPY. IF YOU DECIDE TO DO OUTPATIENT PHYSICAL THERAPY, PLEASE SCHEDULE THIS 3 TIMES PER WEEK. *PREVENA incisional vac is a special dressing covering your incision. This dressing provides a sterile dry environment while you are healing. The dressing is to be left in place for 7 days post-operatively. Your home nurse or surgeon will remove. If you develop any redness or blisters or have any questions notify your surgeon immediately. IF INCISION IS LEAKING THROUGH DRESSING, PLEASE CALL THE OFFICE . FOLLOW UP VISIT: If appointment is not already scheduled: Please call [facility] to make a follow-up appointment for 2 weeks after your surgery at . Pending Studies at Discharge: No Stand-Alone Forms: [facility], Opioid Pain Management, Smoking Cessation Medications and DC Order Prescriptions: New celecoxib [Celebrex] 200 mg Capsule 200 mg PO BID PRN (Reason: pain/inflammation) Qty: 28 RF: 0 acetaminophen 500 mg Tablet 1,000 mg PO Q8 PRN (Reason: pain/fevers) Qty: 90 RF: 0 aspirin 325 mg Tablet,Delayed Release (Dr/Ec) 325 mg PO BID Qty: 56 RF: 0 oxycodone 5 mg Tablet 5 mg PO Q6H MDD 6 tabs PRN (Reason: pain) Qty: 30 RF: 0 sennosides [Senokot] 8.6 mg Tablet 17.2 mg PO HS PRN (Reason: constipation) Qty: 28 RF: 0 Continued atenolol 50 mg tablet 50 mg PO QAM Qty: 90 RF: 3 vitamin B complex Capsule 1 cap PO QPM RF: 0 pantoprazole 40 mg tablet,delayed release (DR/EC) 40 mg PO QAM RF: 0 telmisartan-hydrochlorothiazid 80-25 mg tablet 1 tab PO QAM RF: 0 ascorbic acid (vitamin C) [Vitamin C] 1,000 mg Tablet 1,000 mg PO QAM RF: 0 vitamin E 400 unit Capsule 400 unit PO QPM RF: 0 cholecalciferol (vitamin D3) [Vitamin D3] 1,000 unit Tablet,Chewable 5,000 unit PO QPM RF: 0 coQ10 (ubiquinol) 100 mg Capsule 100 mg PO QPM RF: 0 [place] 3-6-9 1,200 mg Capsule 1 cap PO BID RF: 0 multivitamin Tablet 1 tab PO QAM RF: 0 apple cider vinegar 600 mg Capsule 600 mg PO QPM RF: 0 turmeric 400 mg Capsule 1,000 mg PO QPM RF: 0 amlodipine 5 mg tablet 5 mg PO DAILY Qty: 30 RF: 2 potassium chloride 10 mEq tablet extended release 10 meq PO DAILY Qty: 30 RF: 2 Discontinued acetaminophen [Tylenol Extra Strength] 500 mg Tablet 1,000 mg PO Q6H PRN (Reason: Pain) RF: 0 Discharge Orders: Discharge Order (Routine); Ordered 07/07/19 Ordered By: Reuben Cornell/Other Patient Handouts: Pain Management, A1C Admission Data Admit Date/Time: 07/05/19 16:59 Attending Provider: Reuben Sneed Admit Provider: Reuben Sneed Primary Care Provider: Orlando Altman Other Interventions: Discharge Summary Assessment (RN) Last Done: 07/07/19 16:43 DC Date/Time DO NOT enter until pt leaves facility: 07/07/19 17:45
== END 2019-07-07 17:45 | disposition home health service (06) | DRG 470 ==
LOC: ASU 09:19 → 3E 16:59